=== PATIENT | male | born 1935 | race Caucasian/White ===

== ENCOUNTER 2017-08-28 10:27 | Inpatient (IN) | payer OTHER, MEDICARE ==
[~2017-08-28] VITALS: Ht 180.3 cm; Wt 86.0 kg
[~2017-08-28 10:27] MED LIST: ASPI81 PO; TOPR50TA PO
[2017-08-28 10:29] VITALS: BP 158/80; PULSE 112; RESP 18; TEMP 98.1; O2SAT 99
[2017-08-28] MEDS ORDERED: SODIUM CHLORIDE 0.9% FLUSH 10 ML FLUSH IVF PRN (11:15)
--- NOTE | 2017-08-28 11:15 | PD ---
HPI Chief Complaint: Chest Pain Time Seen by Provider: 10:59 Travel History International Travel<30 days: No Contact w/Intl Traveler<30days: No Traveled to known affect area: No History of Present Illness HPI 82-year-old male presents to the emergency department for evaluation of intermittent shortness of breath, chest tightness has been ongoing for approximately 1.5 months. The patient states that he saw his primary care physician when symptoms started. He had EKG and chest x-ray at that time. He states he had some scarring in the lung base, but no acute abnormality. He then saw Dr. Bright, his silverware etcher, who performed a nuclear stress test and was sounds like an echocardiogram. He states that these tests were normal. He states that yesterday he was polishing his car doing a lot of circular movement with his left arm. He states that the chest pain worsened after doing that. This prompted his visit to the emergency department today. Patient denies any fevers or chills. He currently rates chest tightness 2 out of 10, nonradiating. He states that he has had some paresthesias to the left arm for the past couple of days as well. He believes he slept on his arm wrong. Patient was a previous tobacco smoker, smoked for approximately 10 years approximately 30-40 years ago. He denies any history of asthma, COPD. He states that he did have a cough, but is no longer have cough. He does report traveled to [place] approximately 3 weeks ago. No history DVT or PE. He denies any history of CHF or leg edema. No hemoptysis. Moderate severity. Patient states he took aspirin 162 mg by mouth this morning. PFSH Past Medical History Autoimmune Disease: No Heart Rhythm Problems: No Cancer: Yes (PROSTATE) Cardiac Catheterization: Yes (STENT 6 YEARS AGO) Cardiovascular Problems: Yes (CARDIAC STENT) High Cholesterol: No Congestive Heart Failure: No Diabetes: No Hypertension: No Myocardial Infarction: No Tetanus Vaccination: < 5 Years Influenza Vaccination: Yes Past Surgical History Abdominal Surgery: Yes (RIGHT GROIN HERNIA REPAIR, PROSTATE) Coronary Artery Bypass Graft: No Coronary Stent: Yes (KLANCKE) Other Surgery: Yes Social History Alcohol Use: No Tobacco Use: No Substance Use: No Allergies-Medications (Allergen,Severity, Reaction): Coded Allergies: gluten (Unverified Allergy, Severe, 04/16/17) INTOLERANCE Reported Meds & Prescriptions Reported Meds & Active Scripts Active Reported Aspirin 81 (Aspirin) 81 Mg Tabdr 81 Mg PO DAILY Calcium Ascorbate 500 Mg Tab 500 Mg PO Magnesium Gluconate 27 Mg (500 Mg) Tab 500 Mg PO DAILY Folic Acid 0.8 Mg Tab 800 Mcg PO DAILY Zinc Gluconate 50 Mg Tab 50 Mg PO DAILY Vitamin D3 (Cholecalciferol) 1,000 Unit Tab 1,000 Units PO DAILY Biotin 10 Mg Tab 10 Mg PO DAILY Ferrous Sulfate 325 Mg (65 Mg Iron) Tablet 325 Mg PO DAILY Ocuvite (Multiple Vitamins W/ Minerals) 1 Tab 1 Tab PO DAILY Rosuvastatin (Rosuvastatin Calcium) 5 Mg Tab 5 Mg PO DAILY Losartan (Losartan Potassium) 25 Mg Tab 25 Mg PO DAILY Finasteride 5 Mg Tab 5 Mg PO DAILY Do not crush. Metoprolol Tartrate 25 Mg Tab 25 Mg PO DAILY Review of Systems Except as stated in HPI: all other systems reviewed are Neg Physical Exam Narrative GENERAL: Well-nourished, well-developed elderly male patient, afebrile. SKIN: Focused skin assessment warm/dry. HEAD: Normocephalic. Atraumatic. EYES: No scleral icterus. No injection or drainage. NECK: Supple, trachea midline. No JVD or lymphadenopathy. CARDIOVASCULAR: Regular rate and rhythm without murmurs, gallops, or rubs. Bilateral radial and pedal pulses 2+. RESPIRATORY: Breath sounds equal bilaterally. No accessory muscle use. Lungs sounds are clear to auscultation. GASTROINTESTINAL: Abdomen soft, non-tender, nondistended. MUSCULOSKELETAL: No cyanosis, or edema. BACK: Nontender without obvious deformity. No CVA tenderness. Data Data Last Documented VS Vital Signs Date Time Temp Pulse Resp B/P (MAP) Pulse Ox O2 Delivery O2 Flow Rate FiO2 08/28/17 12:41 65 18 136/65 (88) 96 08/28/17 11:23 Room Air 08/28/17 10:29 98.1 Orders Orders Electrocardiogram (08/28/17 ) Basic Metabolic Panel (Bmp) (08/28/17 11:09) B-Type Natriuretic Peptide (08/28/17 11:09) Ckmb (Isoenzyme) Profile (08/28/17 11:09) Complete Blood Count With Diff (08/28/17 11:09) D-Dimer (08/28/17 11:09) Magnesium (Mg) (08/28/17 11:09) Prothrombin Time / Inr (Pt) (08/28/17 11:09) Act Partial Throm Time (Ptt) (08/28/17 11:09) Troponin I (08/28/17 11:09) Chest, Single Ap (08/28/17 11:09) Ecg Monitoring (08/28/17 11:09) Bilateral Bp Monitoring (08/28/17 11:09) Iv Access Insert/Monitor (08/28/17 11:09) Oximetry (08/28/17 11:09) Oxygen Administration (08/28/17 11:09) Sodium Chloride 0.9% Flush (Ns Flush) (08/28/17 11:15) Ventilation & Perfusion Scan (08/28/17 ) Admit Order (Ed Use Only) (08/28/17 15:19) Labs Laboratory Tests Test 08/28/17 11:14 White Blood Count 13.3 TH/MM3 Red Blood Count 3.74 MIL/MM3 Hemoglobin 10.8 GM/DL Hematocrit 34.0 % Mean Corpuscular Volume 90.8 FL Mean Corpuscular Hemoglobin 28.9 PG Mean Corpuscular Hemoglobin Concent 31.8 % Red Cell Distribution Width 14.2 % Platelet Count 317 TH/MM3 Mean Platelet Volume 8.7 FL Neutrophils (%) (Auto) 81.7 % Lymphocytes (%) (Auto) 9.6 % Monocytes (%) (Auto) 7.0 % Eosinophils (%) (Auto) 1.3 % Basophils (%) (Auto) 0.4 % Neutrophils # (Auto) 10.8 TH/MM3 Lymphocytes # (Auto) 1.3 TH/MM3 Monocytes # (Auto) 0.9 TH/MM3 Eosinophils # (Auto) 0.2 TH/MM3 Basophils # (Auto) 0.0 TH/MM3 CBC Comment DIFF FINAL Differential Comment Prothrombin Time 11.1 SEC Prothromb Time International Ratio 1.1 RATIO Activated Partial Thromboplast Time 21.8 SEC D-Dimer Quantitative (PE/DVT) 4.51 MG/L FEU Blood Urea Nitrogen 33 MG/DL Creatinine 1.71 MG/DL Random Glucose 115 MG/DL Calcium Level 8.4 MG/DL Magnesium Level 1.9 MG/DL Sodium Level 144 MEQ/L Potassium Level 4.2 MEQ/L Chloride Level 117 MEQ/L Carbon Dioxide Level 20.4 MEQ/L Anion Gap 7 MEQ/L Estimat Glomerular Filtration Rate 38 ML/MIN Total Creatine Kinase 79 U/L Troponin I 0.21 NG/ML B-Type Natriuretic Peptide 233 PG/ML MDM Medical Decision Making Medical Screen Exam Complete: Yes Emergency Medical Condition: Yes Medical Record Reviewed: Yes Interpretation(s) chest x-ray - CONCLUSION: No acute disease. VQ - CONCLUSION: Low probability of pulmonary embolism. Differential Diagnosis ACS versus chest wall pain versus pneumonia versus URI versus PE Narrative Course 82-year-old male presents to the emergency department for evaluation of shortness of breath, chest tightness for 1.5 months, worsened after polishing his car yesterday. His symptoms are improved at this time. EKG shows sinus rhythm, heart rate 84, no acute ST changes. CBC, BMP, BNP, CK, troponin, magnesium, PTT, PT/INR, d-dimer ordered and pending. Chest x-ray is ordered and pending. CBC shows leukocytosis 13.3, hemoglobin 10.8, hematocrit 34.0. BMP shows elevated BUN 33, creatinine 1.71. BNP is 233. CK is 79. Troponin is 0.21. Magnesium is 1.9. Coags shows no acute abnormality. D-dimer is 4.51. Chest x- ray shows no acute disease. V/Q is ordered and pending. Patient's silverware etcher, Dr. Bright, is paged. Dr. Bright reviewed records and states that he had a normal nuclear stress test in June and a normal ejection fraction on the echo. However, he states that he will consult on patient. VQ shows low probability of pulmonary embolism. Dr. Shah accepted admission. Diagnosis Primary Impression: Chest pain Qualified Codes: R07.9 - Chest pain, unspecified Additional Impression: Elevated troponin Admitting Information Admitting Physician Requests: Irene Gina Sepulveda AMAN Aug 28, 2017 11:14
[2017-08-28] MEDS ORDERED: ASPI1TAB57 PO (11:18)
[2017-08-28] MEDS ORDERED: FERR325T18 PO (11:18)
[2017-08-28] MEDS ORDERED: MAGN500T5 PO (11:18)
[2017-08-28] MEDS ORDERED: LOSA25TA PO (11:18)
[2017-08-28] MEDS ORDERED: BIOT10TA PO (11:18)
[2017-08-28] MEDS ORDERED: VITA100064 PO (11:18)
[2017-08-28] MEDS ORDERED: FOLI800T PO (11:18)
[2017-08-28] MEDS ORDERED: OCUVTAB PO (11:18)
[2017-08-28] MEDS ORDERED: ZINC50TA2 PO (11:18)
[2017-08-28] MEDS ORDERED: ROSU1TAB4 PO (11:18)
[2017-08-28] MEDS ORDERED: FINA5TAB2 PO (11:18)
[2017-08-28] MEDS ORDERED: METO25TA3 PO (11:18)
[2017-08-28] MEDS ORDERED: CALC500T37 PO (11:18)
[2017-08-28 11:23] VITALS: BP 156/77; PULSE 78; RESP 21; O2SAT 97
[2017-08-28 11:44] LABS: AUTOMATED NEUTROPHIL # 10.8 TH/MM3 (1.8-7.7); BASOPHIL % 0.4 % (0.0-2.0); EOSINOPHIL # 0.2 TH/MM3 (0-0.4); EOSINOPHIL % 1.3 % (0.0-4.0); HEMOGLOBIN 10.8 GM/DL (13.0-17.0); LYMPH % 9.6 % (9.0-44.0); LYMPHOCYTE # 1.3 TH/MM3 (1.0-4.8); MEAN CELL VOLUME 90.8 FL (80.0-100.0); MEAN CORPUSCULAR HEMOGLOBIN 28.9 PG (27.0-34.0); MEAN CORPUSCULAR HGB CONC 31.8 % (32.0-36.0); MEAN PLATELET VOLUME 8.7 FL (7.0-11.0); MONOCYTE # 0.9 TH/MM3 (0-0.9); NEUT % 81.7 % (16.0-70.0); PLATELET COUNT 317 TH/MM3 (150-450); RED BLOOD COUNT 3.74 MIL/MM3 (4.50-5.90); RED CELL DISTRIBUTION WIDTH 14.2 % (11.6-17.2); WHITE BLOOD COUNT 13.3 TH/MM3 (4.0-11.0)
--- NOTE | 2017-08-28 11:46 | RADRPT ---
EXAM DATE/TIME: 08/28/2017 11:14 [facility] COMPARISON: No previous studies available for comparison. INDICATIONS : Short of breath and chest pain on exertion. MEDICAL HISTORY : Right lung scarring. SURGICAL HISTORY : None. ENCOUNTER: Initial ACUITY: 3 days PAIN SCORE: 1/10 LOCATION: Bilateral chest FINDINGS: A single view of the chest demonstrates the lungs to be symmetrically aerated without evidence of mas s, infiltrate or effusion. The cardiomediastinal contours are unremarkable. Osseous structures are intact. CONCLUSION: No acute disease. Rodrigo Quevedo MD on August 28, 2017 at 11:41 Board Certified Radiologist. This report was verified electronically.
[2017-08-28 12:07] LABS: BICARBONATE 20.4 MEQ/L (21.0-32.0); CALCIUM 8.4 MG/DL (8.5-10.1); CREATININE 1.71 MG/DL (0.60-1.30); D-DIMER 4.51 MG/L FEU (0.00-0.50); INTERNATIONAL NORMALIZED RATIO 1.1 RATIO; MAGNESIUM 1.9 MG/DL (1.5-2.5); PROTHROMBIN TIME - PATIENT 11.1 SEC (9.8-11.6)
[2017-08-28 12:13] LABS: TROPONIN I 0.21 NG/ML (0.02-0.05)
[2017-08-28 12:41] VITALS: BP 136/65; PULSE 65; RESP 18; O2SAT 96
--- NOTE | 2017-08-28 13:42 | EKG ---
Date Performed: 08/28/2017 Time Performed: 10:42:09 PTAGE: 82 years EKG: Sinus rhythm WITH SINUS ARRHYTHMIA WITH FIRST DEGREE AV BLOCK ABNORMAL ECG PREVIOUS TRACING : 07/12/2010 06.18 DOCTOR: Jose Martin Moore Interpretating Date/Time 08/28/2017 13:41:24
--- NOTE | 2017-08-28 14:24 | RADRPT ---
EXAM DATE/TIME: 08/28/2017 13:42 [facility] COMPARISON: CHEST SINGLE AP, August 28, 2017, 11:14. INDICATIONS : Shortness of breath for 1 month. DOSE: 8.1 mCi Tc99m MAA IV 1 mCi Tc99m DTPA aerosol MEDICAL HISTORY : Carcinoma, prostate. Hypertension. Cardiovascular disease SURGICAL HISTORY : Coronary artery stent. Inguinal hernia repair. Prostatectomy. ENCOUNTER: Initial ACUITY: 1 month PAIN SCALE: 2/10 LOCATION: Bilateral chest TECHNIQUE: Following five minutes of tidal breathing of DTPA aerosol, planar images of the lungs were performed in eight projections. The patient was then injected with MAA, and eight-view perfusion scan was perf ormed. FINDINGS: There is a homogeneous pattern of aerosol delivery to the periphery of both lungs. No focal ventilat ory defects are seen. The perfusion lung scan demonstrates a homogenous pattern of uptake in both lungs. No segmental or s ubsegmental defects are seen. CONCLUSION: Low probability of pulmonary embolism. Rodrigo Quevedo MD on August 28, 2017 at 14:14 Board Certified Radiologist. This report was verified electronically.
[2017-08-28] MEDS ORDERED: NALOXONE HCL 0.4 MG/ML AMP IV PUSH PRN (16:00)
[2017-08-28] MEDS ORDERED: SODIUM CHLORIDE 0.9% FLUSH 10 ML FLUSH IV FLUSH PRN (16:00)
--- NOTE | 2017-08-28 16:51 | HHI.HP ---
[facility] Service [facility] Primary Care Physician Talita Bonilla MD Admission Diagnosis chest pain, elevated troponin Diagnoses: (1) Coronary artery disease (2) Chest pain (3) Elevated troponin Chief Complaint: Chest pain Travel History International Travel<30 Days: No Contact w/Intl Traveler <30 Da: No Traveled to Known Affected Are: No History of Present Illness The patient is an 82-year-old male who presented to the emergency department for evaluation of chest pain and dyspnea. He states his symptoms initially started about 6 weeks ago. He was seen as an outpatient by his primary care physician. Chest x-ray and EKG were reportedly unremarkable at that time. He was referred to cardiology and further workup including stress test was reportedly negative. He states that he has continued to have intermittent episodes of chest tightness. He had a significant episode this morning, prompting him to present to the emergency department. He describes the discomfort as tightness involving the entire chest. He had numbness of his left arm. He has had associated shortness of breath, but no diaphoresis. Occasionally the chest pain episodes are relieved with Rolaids. No current chest pain. Review of Systems Constitutional: DENIES: Fever, Chills, Night Sweats Eyes: DENIES: Blurred vision, Vision loss Ears, nose, mouth, throat: DENIES: Hearing loss Respiratory: COMPLAINS OF: Shortness of breath, DENIES: Cough, Wheezing, Sputum production Cardiovascular: COMPLAINS OF: Chest pain, DENIES: Palpitations, Dyspnea on Exertion, Lower Extremity Edema Gastrointestinal: DENIES: Abdominal pain, Constipation, Diarrhea, Nausea, Vomiting Genitourinary: DENIES: Urinary frequency, Urinary incontinence, Urgency, Hematuria, Dysuria, Nocturia Musculoskeletal: DENIES: Joint pain, Muscle aches Integumentary: DENIES: Pruritus, Rash Hematologic/lymphatic: DENIES: Bruising Neurologic: DENIES: Headache Past Family Social History Past Medical History Coronary artery disease History of prostate cancer Past Surgical History Cardiac catheterization with stent placement Bilateral inguinal hernia repair Prostate surgery Reported Medications Aspirin 81 (Aspirin) 81 Mg Tabdr 81 Mg PO DAILY Calcium Ascorbate 500 Mg Tab 500 Mg PO Magnesium Gluconate 27 Mg (500 Mg) Tab 500 Mg PO DAILY Folic Acid 0.8 Mg Tab 800 Mcg PO DAILY Zinc Gluconate 50 Mg Tab 50 Mg PO DAILY Vitamin D3 (Cholecalciferol) 1,000 Unit Tab 1,000 Units PO DAILY Biotin 10 Mg Tab 10 Mg PO DAILY Ferrous Sulfate 325 Mg (65 Mg Iron) Tablet 325 Mg PO DAILY Ocuvite (Multiple Vitamins W/ Minerals) 1 Tab 1 Tab PO DAILY Rosuvastatin (Rosuvastatin Calcium) 5 Mg Tab 5 Mg PO DAILY Losartan (Losartan Potassium) 25 Mg Tab 25 Mg PO DAILY Finasteride 5 Mg Tab 5 Mg PO DAILY Do not crush. Metoprolol Tartrate 25 Mg Tab 25 Mg PO DAILY Allergies: Coded Allergies: gluten (Unverified Allergy, Severe, 04/16/17) INTOLERANCE Family History Coronary artery disease Celiac disease Social History Quit smoking 40 years ago. Rare alcohol use. Denies illicit drug use. Physical Exam Vital Signs Vital Signs Date Time Temp Pulse Resp B/P (MAP) Pulse Ox O2 Delivery O2 Flow Rate FiO2 08/28/17 12:41 65 18 136/65 (88) 96 08/28/17 11:23 78 21 156/77 (103) 97 Room Air 08/28/17 10:56 Room Air 08/28/17 10:29 98.1 112 18 158/80 (106) 99 Room Air Physical Exam GENERAL: Elderly male in no acute distress. HEENT: Normocephalic, atraumatic. Pupils equal, round and reactive. Extraocular movements intact. No scleral icterus. No injection or drainage. Oropharynx is clear. Mucous membranes are moist. CARDIOVASCULAR: Regular rate and rhythm without murmurs, gallops, or rubs. RESPIRATORY: Clear to auscultation. No wheezes, rales, or rhonchi. Breathing is non-labored. GASTROINTESTINAL: Abdomen soft, non-tender, nondistended. EXTREMITIES: No lower extremity edema. No calf tenderness. PSYCH: Alert and oriented x 3. Laboratory Laboratory Tests Test 08/28/17 11:14 White Blood Count 13.3 Red Blood Count 3.74 Hemoglobin 10.8 Hematocrit 34.0 Mean Corpuscular Volume 90.8 Mean Corpuscular Hemoglobin 28.9 Mean Corpuscular Hemoglobin Concent 31.8 Red Cell Distribution Width 14.2 Platelet Count 317 Mean Platelet Volume 8.7 Neutrophils (%) (Auto) 81.7 Lymphocytes (%) (Auto) 9.6 Monocytes (%) (Auto) 7.0 Eosinophils (%) (Auto) 1.3 Basophils (%) (Auto) 0.4 Neutrophils # (Auto) 10.8 Lymphocytes # (Auto) 1.3 Monocytes # (Auto) 0.9 Eosinophils # (Auto) 0.2 Basophils # (Auto) 0.0 CBC Comment DIFF FINAL Differential Comment Prothrombin Time 11.1 Prothromb Time International Ratio 1.1 Activated Partial Thromboplast Time 21.8 D-Dimer Quantitative (PE/DVT) 4.51 Blood Urea Nitrogen 33 Creatinine 1.71 Random Glucose 115 Calcium Level 8.4 Magnesium Level 1.9 Sodium Level 144 Potassium Level 4.2 Chloride Level 117 Carbon Dioxide Level 20.4 Anion Gap 7 Estimat Glomerular Filtration Rate 38 Total Creatine Kinase 79 Troponin I 0.21 B-Type Natriuretic Peptide 233 Result Diagram: 08/28/17 1114 08/28/17 1114 Imaging Last Impressions Chest X-Ray 08/28/17 1109 Signed Impressions: Service Date/Time: Monday, August 28, 2017 11:14 - CONCLUSION: No acute disease. Rodrigo Quevedo MD Lung Scan-V Nuclear Medicine 08/28/17 0000 Signed Impressions: Service Date/Time: Monday, August 28, 2017 13:42 - CONCLUSION: Low probability of pulmonary embolism. MD Nick Mirandai VTE Risk Assessment Jerrica VTE Risk Assessment: Mod/High Risk (score >= 2) Caprini Risk Assessment Model Point Value = 1 Point Value = 2 Point Value = 3 Point Value = 5 Age 41-60 Minor surgery BMI > 25 kg/m2 Swollen legs Varicose veins or History of unexplained or recurrent spontaneous Oral contraceptives or hormone replacement Sepsis (< 1 month) Serious lung disease, including pneumonia (< 1 month) Abnormal pulmonary function Acute myocardial infarction Congestive heart failure (< 1 month) History of inflammatory bowel disease Medical patient at bed rest Age 61-74 Arthroscopic surgery Major open surgery (> 45 min) Laparoscopic surgery (> 45 min) Malignancy Confined to bed (> 72 hours) Immobilizing plaster cast Central venous access Age >= 75 History of VTE Family history of VTE Factor V Leiden Prothrombin [id number] Lupus anticoagulant Anticardiolipin antibodies Elevated serum homocysteine Heparin-induced thrombocytopenia Other congenital or acquired thrombophilia Stroke (< 1 month) Elective arthroplasty Hip, pelvis, or leg fracture Acute spinal cord injury (< 1 month) Prophylaxis Regimen Total Risk Factor Score Risk Level Prophylaxis Regimen 0-1 Low Early ambulation 2 Moderate Order ONE of the following: *Sequential Compression Device (SCD) *Heparin 5000 units SQ BID 3-4 Higher Order ONE of the following medications: *Heparin 5000 units SQ TID *Enoxaparin/Lovenox 40 mg SQ daily (WT < 150 kg, CrCl > 30 mL/min) *Enoxaparin/Lovenox 30 mg SQ daily (WT < 150 kg, CrCl > 10-29 mL/min) *Enoxaparin/Lovenox 30 mg SQ BID (WT < 150 kg, CrCl > 30 mL/min) AND/OR *Sequential Compression Device (SCD) 5 or more Highest Order ONE of the following medications: *Heparin 5000 units SQ TID (Preferred with Epidurals) *Enoxaparin/Lovenox 40 mg SQ daily (WT < 150 kg, CrCl > 30 mL/min) *Enoxaparin/Lovenox 30 mg SQ daily (WT < 150 kg, CrCl > 10-29 mL/min) *Enoxaparin/Lovenox 30 mg SQ BID (WT < 150 kg, CrCl > 30 mL/min) AND *Sequential Compression Device (SCD) Assessment and Plan Assessment and Plan 1. Chest pain, elevated troponin, history of coronary artery disease: Uncertain etiology. Patient has had intermittent episodes of chest tightness for the past 6 weeks. Troponin is elevated at 0.21. VQ scan is negative. Consult the patient' s binding cutter. Check serial cardiac enzymes and EKGs. No chest pain at the time of my evaluation. The patient states that at times the chest discomfort resolves when he takes Rolaids. If cardiac workup is negative, consider GI source. Patient's community advocate is Dr. Crane. 2. Acute kidney injury: No recent baseline creatinine available at this time ( most recent available is from 2009). Monitor labs. Avoid nephrotoxic medications. 3. DVT prophylaxis: Heparin. Problem Qualifiers (1) Chest pain: Qualified Codes: R07.9 - Chest pain, unspecified Ryan Savage MD Aug 28, 2017 16:51
[2017-08-28 20:09] LABS: TROPONIN I 0.89 NG/ML (0.02-0.05)
[2017-08-28 20:33] VITALS: PULSE 67
[2017-08-28] MEDS ORDERED: HEPARIN SODIUM - SQ 10,000 UNITS/ML VIAL SQ SCH (21:00)
[2017-08-28 21:28] VITALS: BP 150/67; PULSE 64; RESP 18; TEMP 98.2; O2SAT 97
[2017-08-28 21:39] LABS: HEMATOCRIT 30.1 % (39.0-51.0); HEMOGLOBIN 9.7 GM/DL (13.0-17.0); MEAN CELL VOLUME 90.3 FL (80.0-100.0); MEAN CORPUSCULAR HEMOGLOBIN 29.2 PG (27.0-34.0); MEAN CORPUSCULAR HGB CONC 32.3 % (32.0-36.0); MEAN PLATELET VOLUME 8.7 FL (7.0-11.0); PLATELET COUNT 266 TH/MM3 (150-450); RED BLOOD COUNT 3.33 MIL/MM3 (4.50-5.90); RED CELL DISTRIBUTION WIDTH 14.4 % (11.6-17.2); WHITE BLOOD COUNT 9.9 TH/MM3 (4.0-11.0)
[2017-08-28] MEDS: SODIUM CHLORIDE 0.9% FLUSH 10 ML FLUSH IV FLUSH SCH (21:42)
[2017-08-28] MEDS: FAMOTIDINE 20 MG TAB PO SCH (21:42)
[2017-08-28 21:48] LABS: INTERNATIONAL NORMALIZED RATIO 1.1 RATIO; PROTHROMBIN TIME - PATIENT 11.5 SEC (9.8-11.6)
[2017-08-28] MEDS: HEPARIN-D5W 25,000 U/250 ML 250 ML IV PRN (22:24)
[2017-08-28 23:18] LABS: TROPONIN I 0.86 NG/ML (0.02-0.05)
[2017-08-29] VITALS (18 sets, daily range): BP systolic 117–156; BP diastolic 65–73; PULSE 54–98; RESP 16–20; TEMP 97.8–98.2; O2SAT 93–98
[2017-08-29 03:42] LABS: AUTOMATED NEUTROPHIL # 6.4 TH/MM3 (1.8-7.7); BASOPHIL % 0.4 % (0.0-2.0); EOSINOPHIL # 0.2 TH/MM3 (0-0.4); EOSINOPHIL % 2.5 % (0.0-4.0); HEMATOCRIT 30.5 % (39.0-51.0); HEMOGLOBIN 9.9 GM/DL (13.0-17.0); LYMPH % 19.1 % (9.0-44.0); LYMPHOCYTE # 1.7 TH/MM3 (1.0-4.8); MEAN CORPUSCULAR HEMOGLOBIN 29.3 PG (27.0-34.0); MEAN CORPUSCULAR HGB CONC 32.5 % (32.0-36.0); MEAN PLATELET VOLUME 8.4 FL (7.0-11.0); MONO % 8.7 % (0.0-8.0); MONOCYTE # 0.8 TH/MM3 (0-0.9); NEUT % 69.3 % (16.0-70.0); PLATELET COUNT 267 TH/MM3 (150-450); RED BLOOD COUNT 3.39 MIL/MM3 (4.50-5.90); WHITE BLOOD COUNT 9.2 TH/MM3 (4.0-11.0)
[2017-08-29 04:13] LABS: BICARBONATE 20.6 MEQ/L (21.0-32.0); CALCIUM 8.1 MG/DL (8.5-10.1); CREATININE 1.52 MG/DL (0.60-1.30)
[2017-08-29] MEDS: FINASTERIDE 5 MG TAB PO SCH (08:09)
[2017-08-29] MEDS: CHOLECALCIFEROL (VIT D3) 1000 UNIT TAB PO SCH (08:10)
[2017-08-29] MEDS: FAMOTIDINE 20 MG TAB PO SCH ×2 (08:10→19:57)
[2017-08-29] MEDS: FOLIC ACID 1 MG TAB PO SCH (08:10)
[2017-08-29] MEDS: FERROUS SULFATE 325 MG (65 MG ELEMENTAL IRON) TAB PO SCH (08:10)
[2017-08-29] MEDS: MULTIVITAMIN-OPHTHALMIC 1 TAB PO SCH (08:10)
[2017-08-29] MEDS: SODIUM CHLORIDE 0.9% FLUSH 10 ML FLUSH IV FLUSH SCH ×2 (08:11→19:58)
[2017-08-29] MEDS ORDERED: HEPARIN-NS/PF INJ 1,500 ML ONE (08:47)
[2017-08-29] MEDS ORDERED: VERAPAMIL HCL 5 MG/2 ML VIAL ONE (08:48)
[2017-08-29] MEDS ORDERED: MIDAZOLAM HCL 2 MG/2 ML VIAL ONE (08:48)
[2017-08-29] MEDS ORDERED: HEPARIN SODIUM - IV 10,000 UNITS/10 ML VIAL ONE (08:48)
[2017-08-29] MEDS ORDERED: NITROGLYCERIN INJ 5 ML ONE (08:49)
[2017-08-29] MEDS ORDERED: NON-FORMULARY DRUG (Rosuvastatin 5 MG) PO SCH (09:00)
[2017-08-29] MEDS ORDERED: LOSARTAN 25 MG TAB PO SCH (09:00)
[2017-08-29] MEDS ORDERED: NON-FORMULARY DRUG (Magnesium Gluconate 500 MG) PO SCH (09:00)
[2017-08-29] MEDS ORDERED: ASPIRIN EC 81 MG TABEC PO SCH (09:00)
[2017-08-29] MEDS ORDERED: [UNRECOGNIZED DRUG - OTHER] PO SCH (09:00)
[2017-08-29] MEDS ORDERED: [UNRECOGNIZED DRUG - OTHER] PO SCH (09:00)
[2017-08-29] MEDS ORDERED: NON-FORMULARY DRUG (Zinc Gluconate 50 MG) PO SCH (09:00)
[2017-08-29] MEDS ORDERED: ATORVASTATIN 10 MG TAB PO SCH (09:00)
[2017-08-29] MEDS ORDERED: NON-FORMULARY DRUG (Biotin 10 MG) PO SCH (09:00)
[2017-08-29] MEDS ORDERED: METOPROLOL TARTRATE 25 MG TAB PO SCH ×2 (09:00→14:30)
--- NOTE | 2017-08-29 09:21 | MB ---
cc: GENO MCKEON DO DATE OF CONSULTATION 08/29/2017 REASON FOR CONSULTATION Chest pain, elevated troponin. HISTORY OF PRESENT ILLNESS Min Rucker is a pleasant 82-year-old male who sees my partner, Dr. Diez, in the office and presented to [facility] emergency room on August 28, 2017 due to chest pain and shortness of breath. He states that he has had these symptoms over the past six weeks. He originally saw his outpatient primary care physician and he sent him to Dr. Diez's office where he had an echo and stress test. Echo showed normal systolic function with only mild valvular disease. His stress test showed no ischemic areas. He continued to notice shortness of breath with activity and some chest tightness. Occasionally he would get the chest tightness and he would take Rolaids and this somewhat relieved the episodes. Yesterday he was working on the lawn fertilizing and he started having the chest pain and so he came into the emergency room. In seeing him, he is currently without chest pain or shortness of breath. PAST MEDICAL HISTORY 1. Coronary artery disease 2. History of prostate cancer. PAST SURGICAL HISTORY 1. Cardiac catheterization (July 31, 2004). Mild disease throughout. Proximal LAD 95% status post Cypher stent (3 x 18). 2. Bilateral inguinal hernia repair. 3. Prostate surgery ALLERGIES GLUTIN MEDICATIONS 1. Iron 325 mg daily 2. Crestor 5 mg daily 3. Metoprolol tartrate 25 mg daily 4. Losartan 25 mg daily 5. Aspirin 81 mg daily 6. Magnesium 500 mg daily 7. Zinc 50 mg daily 8. Biotin 10 mg daily 9. Folic acid 800 mcg daily 10. Calcium 500 mg daily 11. Ocuvite one tablet daily 12. Finasteride 5 mg daily FAMILY HISTORY Denies premature coronary artery disease or sudden cardiac within the family. SOCIAL HISTORY The patient previously smoked, but quit 40 years ago. He rarely uses alcohol. Denies illicit drug abuse. REVIEW OF SYSTEMS 14-systems were reviewed including the osteopathic pertinent positives and negatives as above, otherwise negative. PHYSICAL EXAMINATION VITAL SIGNS: Temperature 97.8, heart rate 69, blood pressure 145/70, respirations 20, pulse ox 95% on room air. GENERAL: The patient appears well in no acute distress, alert, awake and oriented times three. HEENT: Extraocular muscles are intact. Mucous membranes moist. NECK: Supple. No JVD at 45 degrees. No carotid bruits heard bilaterally. Carotid upstroke is brisk in nature. HEART: Regular rate and rhythm. Positive first and second heart sounds with no murmurs, gallops or rubs. LUNGS: Clear to auscultation bilaterally. No wheezes, rales or rhonchi. ABDOMEN: Soft, nontender, nondistended. No organomegaly noted. EXTREMITIES: No clubbing, cyanosis or edema. Femoral and distal pulses are intact bilaterally. NEUROLOGIC: No focal deficits. SKIN: Warm, dry and intact. OSTEOPATHIC: No kyphoscoliosis, lordosis or paraspinal tender points. LABORATORY WORK Hemoglobin 9.9, hematocrit 30.5, platelets 267. Potassium 4.9, BUN 35, creatinine 1.52, troponin 0.89, BMP 233. Electrocardiogram (08/29/2017 at 0100), normal sinus rhythm at 61 beats per minute, no acute STT wave changes. IMPRESSIONS 1. NSTEMI 2. History of coronary artery disease. 3. History of prostate cancer. 4. Chronic kidney disease stage III. RECOMMENDATIONS 1. Mr. Rucker presented with chest pain concerning for coronary insufficiency, as well as shortness of breath. He had an elevated troponin and because of this, he will be recommended cardiac catheterization. 2. He recently had an Echo in the office which showed a normal ejection fraction with mild valvular disease. This may need to be repeated due to this most recent event. 3. We will continue him on his aspirin. 4. The risks, benefits and alternatives were explained to him and he consent as such. 5. Further recommendations will be made after coronary visualization. Thank you for allowing me to see Min Rucker. If there are any questions, please do not hesitate to call. Geno Mckeon DO VGP/DJL /8:37 AM /8:47 AM
[2017-08-29] MEDS ORDERED: HEPARIN-NS/PF INJ 1,000 ML ONE (09:53)
--- NOTE | 2017-08-29 11:04 | CATHPROC ---
[employer] HIS Report Study Information Study Number Admission Scheduled Start Study Start [id number] Aug 28 2017 3:20PM 08/29/2017 Aug 29 2017 8:28AM [place] Service Cardiac Catheterization Admit Source Facility Department Emergency department [facility] - Medical Records Specialist Physician and Clinical Staff Initial Bird Garcia Carport Erectorlouis Das RN, Danny Carport ErectorBlair Valerio,SHALINI Recorder Emily Lobo,RT(R) ScrRuby JohnsonRT(R) (BS) Procedures Performed Procedure Location (Site) Vessel Name Coronary Angiograms LCA Left Coronary Coronary Angiograms RCA Right Coronary L Heart Cath Wire insertion Fem Art (right) Femoral Art Wire insertion Radial (right) Radial Art. Equipment Time Supervisor Lump Room Description Size Mfg Part Number Used/Scraped [id number] 10:13 ARGON/MAXXIM BAND BAG W/RUBBERBAND * Used *[id number] 10:13 ARGON/MAXXIM BAND BAG W/RUBBERBAND * Used *[id number] TRANSDUCER, TRUWAVE [id number] 08:30 GOLDBERG PATRICIA * Used W/NATHANAELCOCK *[id number] INTRODUCER SET, 10:35 [employer]. FR 5 [id number] *[id number] Used MICROPUNCTURE, STIFFENED [id number] *[id number] 534-518T *1129582 534-620T *[id number] 534-617T *[id number] 534-521T *[id number] WIRE, HYDROSTEER 150CM [id number] 09:13 DAIG/ST. MALI MEDICAL 150CM Used ANGLED GLIDE *[id number] MEDICAL CONCEPT DRAPE, RADIAL FEMORAL FULL 10:08 * [id number] *[id number] Used DEVELOPMENT BODY [id number] 08:30 Offees PACK, CCL CUSTOM * Used *[id number] 08:30 Offees SUPPORT, ARTERIAL ADULT 50823 *2367530 Used [id number] 09:24 MEDTRONIC JL 4.0 DXTERITY CATHETER FR 5 Used *[id number] BAND, RADIAL COMPRESSION TR [id number] 10:35 [employer]Giga MEDICAL 24CM Used SHORT 24 *[id number] 08:30 Altheos WIRE, EXCHANGE 260CM 3MMJ 260CM Used *[id number] 08:30 NAMIC MANIFOLD, 4 PORT * Used *[id number] 10:06 NAMIC MANIFOLD, 4 PORT * Used *[id number] 10:14 NYCOMED OMNIPAQUE, 350 MG, 150ML 150ML [id number] Used 08:30 NYCOMED OMNIPAQUE, 350 MG, 150ML 150ML [id number] Used [id number] 08:30 HELLER MEDICAL BLANKET,WARM AIR CCL * Used *[id number] 10:07 HELLER MEDICAL BLANKET,WARM AIR CCL * Used *[id number] 10:35 TERUMO MEDICAL SHEATH, FR6 TERUMO (10CM) FR 6 Used *7592014 SHEATH, FR6 TRANSRADIAL RM*[id number] 08:30 TERUMO MEDICAL FR 6 Used SLENDER 10CM *[id number] Equipment Model, Serial, Lot Number and Expiration Data Description Model Number Serial Number Lot Number Expiration Date INTRODUCER SET, [id number] 07-08-2020 MICROPUNCTURE, STIFFENED JL 4.0 DXTERITY CATHETER [id number] 04-03-2020 WIRE, HYDROSTEER 150CM [id number] 05-02-2020 ANGLED GLIDE History: Current Medications Medication Dosage/Unit Route Frequency Last Date/Time Taken LOPRESSOR ASA COZAAR Statins (any) History: Allergies Allergy Reaction gluten History: Risk Factors Family History of Hypertension Dyslipidemia Previous MA Previous Heart Failure Premature CAD Yes Yes Yes No No Prior Valve Prior PCI Prior PCIDate Prior CABG Surgery No Yes 09/02/2003 No Cerebrovascular Peripheral Artery Chronic Lung On Dialysis Diabetes Disease Disease Disease No No No No No History: Symptoms/Diagnosis Selection Items Chest pain SOB History: Stress Tests Stress or Imaging Studies Performed Yes Standard Exercise Stress Test No Stress Echo No Stress Test SPECT Stress Test SPECT Result Stress Test SPECT Ischemia Risk/Extent Yes Positive Low Stress Test CMR No Cardiac CTA Coronary Calcium Score No No History: Other Disease Selection Items CAD History: Other Current Smoker Method Quit Packs a Day Years Used Pack Years No Cigarettes 30 Years Ago 1 20 20 Labs Hgb (g/dl) Hct (%) WBC (l/cumm) Platelets (thousands) 11.60-17.00 35.00-51.00 4.00-11.00 150.00-450.00 9.9 30.5 9.2 267 Glucose (mg/dl) BUN (mg/dl) Creatinine (mg/dl) BUN:Creatinine (1:x) 74.00-106.00 7.00-18.00 0.50-1.30 10.00-20.00 88 35 1.5 23.3 Na (meq/l) K (meq/l) 136.00-145.00 3.50-5.10 142 4.9 INR (PTT:PT) 0.90-1.10 1.1 Troponin I (ng/ml) CPK (u/l) 0.02-0.05 26.00-308.00 0.86 79 Medication Medication Total Dose (Bolus/Oral) Medication Total Dosage/Unit 1% XYLOCAINE 40 mL FENTANYL 75 mcg RADIAL COCKTAIL 5 mL (Bolus) VERSED 0.5 mg Medications (Bolus/Oral) Medication Time Given Dosage/Unit Administered By Reason FENTANYL 08/29/2017 9:06:40 AM 25 mcg Danny Das RN 25 mcg FENTANYL given in lab by Danny Das RN in Right Forearm via Peripheral IV. Ordered by Bird Castillo VERSED 08/29/2017 9:07:21 AM 0.5 mg Danny Das RN 0.5 mg VERSED given in lab by Danny Das RN in Right Forearm via Peripheral IV. Ordered by Bird Noyola 1% XYLOCAINE 08/29/2017 9:08:29 AM 20 mL Bird Noyola 20 mL 1% XYLOCAINE given in lab by Bird Noyola in Right Radial via Subcutaneous. RADIAL COCKTAIL 08/29/2017 9:09:38 AM 5 mL (Bolus) Bird Noyola 5 mL (Bolus) RADIAL COCKTAIL given in lab by Bird Noyola in Right Radial via Radial. Using [S olution Name]. Reason: Ntg 200mcg Verapamil 2.5mg Heparin 3500U. 08/29/2017 10:35:40 FENTANYL 50 mcg Danny Das RN AM 50 mcg FENTANYL given in lab by Danny Das RN in Right Forearm via Peripheral IV. Ordered by Bird Castillo 08/29/2017 10:38:04 1% XYLOCAINE 20 mL Bird Noyola AM 20 mL 1% XYLOCAINE given in lab by Bird Noyola in Right Groin via Subcutaneous. Medication (Drip) Medication Time Given Dosage/Unit Concentration/Unit Diluent (ml) Solution IV Solutions 08/29/2017 8:48:10 AM 50 mL (IV) NaCl .9 IV Solutions given in lab by Burfield, Blair, RN in Right Forearm via Peripheral IV. Pump/Drip Flow usi ng NaCl .9. Initial Case Assessment Cardiovascular HR Rhythm NIBP Chest Pain 63 SR 162/81 0 Edema Present Skin color Skin None Normal Warm Dry Circulatory - Right Pulses Dorsalis Pedis Femoral Radial 1 2 2 Scale (0,1,2,3,4,d) Scale (0,1,2,3,4,d) Neurological State Oriented to time-place- Alert Moves all extremities person Respiration - General Respiration Rate SpO2 (%) (B/min) 11 97 Chronological Log Time Study Chronological Log 8:30:00 Heparin off 8:38:21 Patient arrived via Bed. 8:47:49 Patient Name, D.O.B, / Armband Verified By R.N. 8:47:50 Consent signed by the physician and the patient and verified by the Medical Records Specialist staff. 8:47:51 Pre-op and post- op instructions given; patient acknowledges understanding of instructions . 8:47:52 Verbal Stimulation=2 Physical Stimulation=2 Airway=2 Respiration=2 TOTAL=8. (0=absent, 1=l imited, 2=present) 8:47:54 Presedation assessment performed by Medical Records Specialist RN. 8:47:57 Allens test performed on the right radial and ulnar artery. 8:48:04 Patient has been NPO for More than 6Hrs. 8:48:05 Skin Breakdown-none per pt 8:48:06 Patient Warmer Placed on the Table. 8:48:06 Tiffanie Prominences Protected 8:48:08 A # 20 IV was noted in the Forearm (right). Grade = 0 8:48:10 IV Solutions given in lab by Blair Hidalgo RN in Right Forearm via Peripheral IV. Pump/Dr ip Flow using NaCl .9. 8:48:12 History and physical on the chart or being dictated. Assessment: Initial Case, HR=63 BPM, Rhythm=SR, IBUQ=718/81 mmhg, Chest Pain=0, Edema=None, [place] r=Normal, Skin = Warm, Dry 8:48:13 Right Pulses: Lázaro Ped=1, Femoral=2, Radial=2 Neurological: State=Alert, Ox3, VICK Respiration: Resp=11 B/min, SpO2=97 % Vitals capture started with the following parameters, Patient=Adult, Interval=5 min, Initial Pre myvcx=320 mmHg, 8:48:16 Deflation Rate=5 mmHg, Cuff placed on Left Arm 8:49:05 HR=63 bpm, MSSB=888/81 mmhg, SpO2=97 %, Resp=11 B/min 8:49:29 Reference ECG taken 8:52:31 Right Radial and right groin prepped with 2% chlorhexidine, and draped after a 3 min. waitin g time. 8:54:02 HR=62 bpm, FKIA=895/82 mmhg, SpO2=96.0 %, Resp=14 B/min 8:57:53 MD paged 8:59:03 HR=63 bpm, CYTY=559/78 mmhg, SpO2=97.0 %, Resp=11 B/min 9:00:22 MD arrived. 9:01:33 Pressure channel 1 zeroed. 9:04:00 HR=62 bpm, EKZY=692/80 mmhg, SpO2=97.0 %, Resp=18 B/min Time Out. Correct patient, correct procedure, correct physician, power injector loaded, or not l oaded with contrast with 9:06:36 surgical team present. Time Out Concurred by MD and individual staff in procedure. 9:06:40 25 mcg FENTANYL given in lab by Danny Das RN in Right Forearm via Peripheral IV. Ordered by Bird Noyola 9:07:21 0.5 mg VERSED given in lab by Danny Das RN in Right Forearm via Peripheral IV. Ordered by Bird Noyola 9:08:22 Case Start 9:08:29 20 mL 1% XYLOCAINE given in lab by Bird Noyola in Right Radial via Subcutaneous. 9:09:01 HR=63 bpm, PRSC=816/78 mmhg, SpO2=95.0 %, Resp=13 B/min 9:09:12 Access site was Right Radial Artery. A SHEATH, FR6 TRANSRADIAL SLENDER 10CM FR 6 was advanced into the Radial (right) using the Evita rodríguez 9:09:24 technique. 5 mL (Bolus) RADIAL COCKTAIL given in lab by Bird Noyola in Right Radial via Radial. Usi ng [Solution Name]. 9:09:38 Reason: Ntg 200mcg Verapamil 2.5mg Heparin 3500U. A JR 4.0 INFINITI CATHETER FR 5 was advanced over a wire. OMNIPAQUE, 350 MG, 150ML 150ML was use d for 9:10:34 injections. 9:11:02 J Wire removed 9:11:49 Right forearm injection of omnipaque 9:13:07 A WIRE, HYDROSTEER 150CM ANGLED GLIDE 150CM was inserted via Radial (right). 9:14:02 HR=64 bpm, GKNI=851/68 mmhg, SpO2=94.0 %, Resp=18 B/min 9:15:35 [place] Wire removed 9:16:07 A WIRE, EXCHANGE 260CM 3MMJ 260CM was inserted via Radial (right). 9:16:33 Wire removed Recorded Pressure: LV, HR=61, Condition=Condition 1 9:17:21 (Left Ventricle) LV 125/8/13 Recorded Pressure: LV, Ao, HR=60, Condition=Condition 1 9:17:38 (Left Ventricle) LV 124/7/14, (Aorta) Ao 123/59/84 9:18:50 The RCA was injected and visualized at various angles. OMNIPAQUE, 350 MG, 150ML 150ML used. 9:18:57 HR=58 bpm, FQRX=402/65 mmhg, SpO2=93.0 %, Resp=16 B/min After removing the current catheter a JL 3.5 INFINITI CATHETER FR 5 was advanced over a WIRE, EX CHANGE 260CM 9:19:59 3MMJ 260CM. After removing the current catheter a JL 4.0 DXTERITY CATHETER FR 5 was advanced over a WIRE, EX CHANGE 260CM 9:23:24 3MMJ 260CM. 9:23:58 HR=59 bpm, TPBG=531/67 mmhg, SpO2=94 %, Resp=20 B/min 9:25:36 Wire removed 9:28:57 HR=58 bpm, EWTM=241/65 mmhg, SpO2=93.0 %, Resp=14 B/min 9:30:33 X-ray went down, rebooting system. 9:33:58 HR=56 bpm, KRXN=830/68 mmhg, SpO2=98.0 %, Resp=9 B/min 9:38:57 HR=55 bpm, VFFY=165/67 mmhg, SpO2=98.0 %, Resp=16 B/min 9:43:36 Vitals capture stopped. 9:50:02 Covered sheath in right radial with sterile dressing, moved pt to bed and to lab 4. Vitals capture started with the following parameters, Patient=Adult, Interval=5 min, Initial Pr mwnfty=307 mmHg, 9:54:57 Deflation Rate=5 mmHg, Cuff placed on Left Arm 9:55:42 HR=54 bpm, QBTD=798/72 mmhg, SpO2=99.0 %, Resp=9 B/min 9:56:10 Reference ECG taken 9:59:45 Right Radial with sheath in place prepped with 2% chlorhexidine, and draped after a 3 min. w aiting time. 10:00:37 HR=53 bpm, VAHT=047/68 mmhg, SpO2=99.0 %, Resp=7 B/min 10:05:36 HR=51 bpm, XQWK=613/69 mmhg, SpO2=97.0 %, Resp=10 B/min 10:07:09 MD paged 10:07:13 Pressure channel 1 zeroed. 10:10:39 HR=52 bpm, BTYD=450/66 mmhg, SpO2=95.0 %, Resp=10 B/min 10:14:07 MD arrived. 10:15:36 HR=55 bpm, ZWNS=494/67 mmhg, SpO2=95.0 %, Resp=16 B/min Second Time Out. Correct patient, correct procedure, correct physician, power injector loaded, or not loaded with 10:16:32 contrast with surgical team present. Time Out Concurred by MD and individual staff in procedure . A JL 4.5 INFINITI CATHETER FR 6 was advanced over a wire. OMNIPAQUE, 350 MG, 150ML 150ML was us ed for 10:18:00 injections. 10:20:33 HR=55 bpm, IICO=540/66 mmhg, SpO2=95 %, Resp=17 B/min After removing the current catheter a JL 4.0 INFINITI CATHETER FR 6 was advanced over a WIRE, E XCHANGE 260CM 10:25:33 3MMJ 260CM. 10:25:36 HR=53 bpm, ZIDS=407/65 mmhg, SpO2=96.0 %, Resp=20 B/min After removing the current catheter a AL 1 INFINITI CATHETER FR 5 was advanced over a WIRE, EXC HANGE 260CM 10:30:34 3MMJ 260CM. 10:31:18 HR=54 bpm, WJDR=173/64 mmhg, SpO2=99.0 %, Resp=20 B/min 10:35:16 Catheter was removed 10:35:20 Radial access aborted. Unable to get to LCA. 10:35:40 50 mcg FENTANYL given in lab by Danny Das RN in Right Forearm via Peripheral IV. Ordered by Bird Noyola. 10:36:19 HR=55 bpm, RTSK=120/70 mmhg, SpO2=98.0 %, Resp=11 B/min 10:38:04 20 mL 1% XYLOCAINE given in lab by Bird Noyola in Right Groin via Subcutaneous. 10:38:50 Access site was Right Femoral Artery with micropuncture. 10:38:54 A SHEATH, FR6 TERUMO (10CM) FR 6 was advanced into the Fem Art (right) using the Percutaneo us technique. 10:40:39 HR=52 bpm, GJLI=179/68 mmhg, SpO2=99.0 %, Resp=10 B/min 10:40:44 An injection in the Fem Art (right) was made through the SHEATH, FR6 TERUMO (10CM) FR 6. A JL 4.0 INFINITI CATHETER FR 6 was advanced over a wire. OMNIPAQUE, 350 MG, 150ML 150ML was us ed for 10:41:28 injections. 10:43:43 The LCA was injected and visualized at various angles. OMNIPAQUE, 350 MG, 150ML 150ML used . 10:45:41 HR=53 bpm, SKRG=936/71 mmhg, SpO2=98.0 %, Resp=16 B/min 10:45:48 A wire was inserted via Fem Art (right). 10:45:54 Catheter was removed 10:46:30 Activated Clotting Time Drawn 10:47:00 Case End 10:48:14 Sheath(s) left in place, will be removed in Holding Area 10:48:30 Sterile dressing applied to site Radial Compression Device Used. 9 mLs of air placed in BAND, RADIAL COMPRESSION TR SHORT 24 24 CM. Affected 10:48:35 hand 100 % O2 saturation. 10:48:43 Bedside Report will be given. 10:49:00 A Left Heart Cath was performed. 10:50:44 HR=53 bpm, MOAX=331/75 mmhg, SpO2=98.0 %, Resp=10 B/min 10:51:40 ACT (Normal Range 90-180) = 169 10:55:00 Patient moved to stretcher 10:55:41 HR=55 bpm, KSKR=618/77 mmhg, VkT3=249.0 %, Resp=13 B/min 10:57:59 Vitals capture stopped. End Study - Contrast Media Used In Study Contrast Total Opened (mL) Total Used (mL) Total Wasted (mL) Omnipaque 55 55 0 End Study - Maximum Contrast Load Max Contrast Load (mL) 289.4 End Study - Radiation Exposure Fluoro Time (minutes) 16.0 End Study - Patient Disposition Complications Transferred To Interventional Outcome No Telemetry Bed No attempt made
[2017-08-29] MEDS ORDERED: ONDANSETRON HCL 4 MG/2 ML VIAL IV PUSH PRN (11:15)
[2017-08-29] MEDS ORDERED: SODIUM CHLOR 0.9% 250 ML INJ 250 ML IV PRN (11:15)
[2017-08-29] MEDS ORDERED: ATROPINE SULFATE 1 MG/ML VIAL IV PUSH PRN (11:15)
--- NOTE | 2017-08-29 11:47 | MA ---
cc: GENO MCKEON DO DATE 08/29/2017 PROCEDURE Left heart catheterization, coronary angiogram, moderate sedation 100 minutes. PREPROCEDURE DIAGNOSIS NSTEMI, chest pain. POSTPROCEDURE DIAGNOSIS Multivessel disease for CABG. MEDICATIONS 1. Versed 0.5 mg 2. Fentanyl 75 mcg 3. Nitroglycerin 200 mcg 4. Verapamil 2.5 mg 5. Heparin 3500 units FLUOROSCOPY 16 minutes CONTRAST 55 cc. ANESTHESIA Moderate sedation 100 minutes ESTIMATED BLOOD LOSS 10 cc PROCEDURAL SUMMARY Min Rucker is a pleasant 82-year-old male who presented to [facility] emergency room due to chest pain. He was found to have an elevated troponin and because of this was recommended cardiac catheterization. The risks, benefits and alternatives were explained to him and he consented as such. He was brought to lab and prepped in the usual sterile fashion. The right radial artery was accessed using a modified Seldinger technique and placement of a 5/6 [place] sheath. This was easily aspirated and flushed. A JR-4 was advanced over a J-wire to the midforearm where there was some resistance. Angiogram was done and showed mild tortuosity and so this was managed with a Glidewire. JR-4 was advanced into the left ventricle for measurement of left ventricular pressure. This was pulled back across the aortic valve showing no significant gradient of aortic stenosis. JR-4 was used for selective angiography of the right coronary artery system. The JR-4 was then removed and exchanged for a JL-3.5 and eventually a JL-4 which I was unable to engage the left main. At this time, the system went down and was rebooted but not working, so the catheter was removed, Tegaderm was placed over the radial arteriotomy site and the patient was moved from the lab to another and reprepped sterilely. A JL-4.5 and then an AL-1 were attempted to engage the left main but unable to. At this time, I felt that it was reasonable to abort the radial attempt and go to the groin. The right femoral artery was accessed using a modified Seldinger technique and placement of a 6-Mohawk sheath. This was easily aspirated and flushed. A JL-4 was then advanced over a J-wire to the ascending aorta and engaged in the left main. This was used for selective angiography of the left coronary artery system. JL-4 was then removed over a J-wire. The sheath was sutured in and pressure held for hemostasis. A radial band was placed over the arteriotomy site for hemostasis. 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 FINDINGS Left main normal sized vessel with adequate reflux and no significant disease. It trifurcates into an LAD, ramus and circumflex. LAD is a normal-sized vessel with a 90% stenosis in the ostial portion. It has mild luminal irregularities throughout the proximal portion with some in-stent restenosis of 40%. The mid-LAD after the takeoff of the major diagonal has a 70% lesion. But distally has good runoff. Overall, the diagonal has no significant disease. The left circumflex is a normal sized vessel with a long tubular 95% stenosis in the proximal portion. It gives off three to four obtuse marginales as well as a possible codominant posterior descending artery. Ramus has 50% ostial, but overall a small vessel at around 1 mm and covers a small territory of myocardium. RCA. A normal-size vessel with mild luminal irregularities throughout the midportion. Distally, it is a codominant vessel with 50% stenosis of the ostial portion of the PDA. The PLV has an 80% stenosis, but overall is a small vessel at about 1-1/2 mm covering a very small territory. LVEDP 14. IMPRESSIONS 1. Multivessel coronary artery disease for possible CABG. 2. NSTEMI 3. Chest pain concerning for coronary insufficiency. RECOMMENDATIONS 1. Mr. Rucker presented with an NSTEMI and was found to have multivessel disease and because of this will be recommended coronary artery bypass grafting. 2. Case was discussed with CT surgery and they will see him in consultation. 3. We will plan to recheck an echocardiogram as this is a new ischemic event. 4. Because of the NSTEMI, he will be placed back on a heparin drip 8 hours after his sheath is pulled as long as his groin site looks okay. 5. We will hold his Losartan due to his chronic kidney disease but in anticipation of possible CT surgery. 6. Further recommendations will be made based on the hospital course. Thank you for allowing me to see Min Rucker. If there are any questions, please do not hesitate to call. Geno Mckeon DO VGP/DJL /10:56 AM /11:10 AM
[2017-08-29] MEDS ORDERED: IOHEXOL 350 MG/ML 100 ML BTL (for Cath Lab) OTHER ONE (12:37)
[2017-08-29] MEDS ORDERED: ACETAMINOPHEN 325 MG TAB PO ONE (12:45)
--- NOTE | 2017-08-29 13:38 | HHI.PR ---
Subjective Remarks Patient had positive findings for OR on workup overnight. He was taken for her This morning. Heart Shows a disease that cannot be stented. Plan is for open heart surgery with bypass. Objective Vital Signs Date Time Temp Pulse Resp B/P (MAP) Pulse Ox O2 Delivery O2 Flow Rate FiO2 08/29/17 12:38 98.2 60 18 143/73 (96) 96 08/29/17 11:05 100 Room Air 08/29/17 08:00 97.8 69 20 145/70 (95) 95 08/29/17 06:55 54 08/29/17 04:33 97.8 67 16 142/65 (90) 98 08/29/17 03:15 64 08/29/17 01:31 98.0 61 16 156/69 (98) 97 08/29/17 00:02 67 08/28/17 21:28 98.2 64 18 150/67 (94) 97 08/28/17 20:33 67 08/28/17 17:16 Result Diagram: 08/29/17 0330 08/29/17 0330 Objective Remarks GENERAL: NAD, A&Ox3 HEAD: Normocephalic. NECK: Supple, trachea midline. No lymphadenopathy. EYES: No scleral icterus. No injection or drainage. CARDIOVASCULAR: Regular rate and rhythm without murmurs, gallops, or rubs. RESPIRATORY: Breath sounds equal bilaterally. No accessory muscle use. GASTROINTESTINAL: Abdomen soft, non-tender, nondistended. MUSCULOSKELETAL: No cyanosis, or edema. Right wrist splint in place (post catheterization), right groin dressing present post catheterization. SKIN: Warm and dry. NEURO: No focal neurological deficitis. A/P Problem List: (1) Myocardial infarction ICD Code: I21.9 - Acute myocardial infarction, unspecified (2) Coronary artery disease ICD Code: I25.10 - Atherosclerotic heart disease of [place] coronary artery without angina pectoris (3) Elevated troponin ICD Code: R74.8 - Abnormal levels of other serum enzymes Status: Acute (4) Chest pain ICD Code: R07.9 - Chest pain, unspecified Status: Acute Assessment and Plan Assessment and plan 82-year-old male admitted secondary to chest pain with elevated troponins. Findings overnight consistent with myocardial infarction. Unable to treat this with catheterization. Plan for open heart surgery with bypass. 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
[2017-08-29 14:30] LABS: ALBUMIN 3.2 GM/DL (3.4-5.0); ALT (GPT) 27 U/L (12-78); AST (GOT) 19 U/L (15-37); BICARBONATE 20.1 MEQ/L (21.0-32.0); BLOOD UREA NITROGEN 32 MG/DL (7-18); CALCIUM 8.2 MG/DL (8.5-10.1); CHLORIDE 111 MEQ/L (98-107); CREATININE 1.53 MG/DL (0.60-1.30); GLOMERULAR FILTRATION RATE 44 ML/MIN (>89); GLUCOSE,RANDOM 103 MG/DL (74-106); SODIUM (NA) 141 MEQ/L (136-145)
[2017-08-29] MEDS ORDERED: PAPAVERINE INJ 60 MG, NITROGLYCERIN INJ 100 MCG, DILTIAZEM INJ 100 MG in SODIUM CHLORID... IRRIGATION SCH (14:30)
[2017-08-29] MEDS ORDERED: CHLORHEXIDINE GLUCONATE 4% SOLN 120 ML BTL TOPICAL SCH (14:30)
[2017-08-29] MEDS ORDERED: INSULIN REGULAR (IV INFUSION) 100 UNITS in SODIUM CHLORIDE 0.9% INJ 99 ML IV PRN (14:30)
[2017-08-29] MEDS ORDERED: CEFAZOLIN INJ 500 MG in SODIUM CHLORIDE 0.9% IRR BTL 500 ML IRRIGATION SCH (14:30)
[2017-08-29] MEDS ORDERED: SODIUM CHLORIDE 0.9% FLUSH 10 ML FLUSH IV FLUSH PRN (14:30)
[2017-08-29] MEDS ORDERED: ceFAZolin 2 GM PREMIX 50 ML IV SCH (14:30)
[2017-08-29] MEDS ORDERED: DEXTROSE 50% IN WATER 50 ML VIAL(D50) IV PUSH PRN (14:30)
[2017-08-29 14:32] LABS: ALKALINE PHOSPHATASE 94 U/L (45-117); TOTAL BILIRUBIN ADULT 0.4 MG/DL (0.2-1.0)
--- NOTE | 2017-08-29 14:36 | PD.CAR.PN ---
CVT Progress Note Subjective/Hospital Course: pt seen and eval / consultation to follow sts discussed with pt RISK SCORES About the STS Risk Calculator Procedure: CAB Only Risk of Mortality: 2.272% Morbidity or Mortality: 17.299% Long Length of Stay: 6.573% Short Length of Stay: 35.579% Permanent Stroke: 1.528% Prolonged Ventilation: 9.002% DSW Infection: 0.354% Renal Failure: 7.801% Reoperation: 6.276% Objective: Vital Signs Date Time Temp Pulse Resp B/P (MAP) Pulse Ox O2 Delivery O2 Flow Rate FiO2 08/29/17 13:01 66 08/29/17 12:38 98.2 60 18 143/73 (96) 96 08/29/17 11:05 100 Room Air 08/29/17 08:00 97.8 69 20 145/70 (95) 95 08/29/17 06:55 54 08/29/17 04:33 97.8 67 16 142/65 (90) 98 08/29/17 03:15 64 08/29/17 01:31 98.0 61 16 156/69 (98) 97 08/29/17 00:02 67 08/28/17 21:28 98.2 64 18 150/67 (94) 97 08/28/17 20:33 67 08/28/17 17:16 Labs: Laboratory Tests Test 08/29/17 03:30 08/29/17 14:00 White Blood Count 9.2 TH/MM3 (4.0-11.0) Red Blood Count 3.39 MIL/MM3 (4.50-5.90) Hemoglobin 9.9 GM/DL (13.0-17.0) Hematocrit 30.5 % (39.0-51.0) Mean Corpuscular Volume 90.0 FL (80.0-100.0) Mean Corpuscular Hemoglobin 29.3 PG (27.0-34.0) Mean Corpuscular Hemoglobin Concent 32.5 % (32.0-36.0) Red Cell Distribution Width 14.0 % (11.6-17.2) Platelet Count 267 TH/MM3 (150-450) Mean Platelet Volume 8.4 FL (7.0-11.0) Neutrophils (%) (Auto) 69.3 % (16.0-70.0) Lymphocytes (%) (Auto) 19.1 % (9.0-44.0) Monocytes (%) (Auto) 8.7 % (0.0-8.0) Eosinophils (%) (Auto) 2.5 % (0.0-4.0) Basophils (%) (Auto) 0.4 % (0.0-2.0) Neutrophils # (Auto) 6.4 TH/MM3 (1.8-7.7) Lymphocytes # (Auto) 1.7 TH/MM3 (1.0-4.8) Monocytes # (Auto) 0.8 TH/MM3 (0-0.9) Eosinophils # (Auto) 0.2 TH/MM3 (0-0.4) Basophils # (Auto) 0.0 TH/MM3 (0-0.2) CBC Comment DIFF FINAL Differential Comment Activated Partial Thromboplast Time 29.1 SEC (24.3-30.1) Blood Urea Nitrogen 35 MG/DL (7-18) 32 MG/DL (7-18) Creatinine 1.52 MG/DL (0.60-1.30) 1.53 MG/DL (0.60-1.30) Random Glucose 88 MG/DL (74-106) 103 MG/DL (74-106) Calcium Level 8.1 MG/DL (8.5-10.1) 8.2 MG/DL (8.5-10.1) Sodium Level 142 MEQ/L (136-145) 141 MEQ/L (136-145) Potassium Level 4.9 MEQ/L (3.5-5.1) 5.2 MEQ/L (3.5-5.1) Chloride Level 115 MEQ/L (98-107) 111 MEQ/L (98-107) Carbon Dioxide Level 20.6 MEQ/L (21.0-32.0) 20.1 MEQ/L (21.0-32.0) Anion Gap 6 MEQ/L (5-15) 10 MEQ/L (5-15) Estimat Glomerular Filtration Rate 44 ML/MIN (>89) 44 ML/MIN (>89) Total Protein 7.0 GM/DL (6.4-8.2) Albumin 3.2 GM/DL (3.4-5.0) Alkaline Phosphatase 94 U/L (45-117) Aspartate Amino Transf (AST/SGOT) 19 U/L (15-37) Alanine Aminotransferase (ALT/SGPT) 27 U/L (12-78) Total Bilirubin 0.4 MG/DL (0.2-1.0) Result Diagram: 08/29/17 0330 08/29/17 1400 Flor Botello Aug 29, 2017 14:36
[2017-08-29 16:34] LABS: HEMOGLOBIN A1C 5.6 % (4.3-6.0)
--- NOTE | 2017-08-29 16:41 | RADRPT ---
EXAM DATE/TIME: 08/29/2017 15:26 [facility] COMPARISON: No previous studies available for comparison. INDICATIONS : Preop cardiac surgery. MEDICAL HISTORY : Prostate cancer. SURGICAL HISTORY : Cardiac stent. Right groin hernia repair. Cardiac catheterization. Prostate surgery. ENCOUNTER: Initial ACUITY: 1 day PAIN SCORE: 0/10 LOCATION: Bilateral legs. TECHNIQUE: Venous ultrasound of the left and right leg was performed from the inguinal ligament to the proximal calf. Real-time, color Doppler and spectral tracing, compression and augmentation techniques were us ed. FINDINGS: RIGHT LEG: There is normal compressibility of the deep venous system from the inguinal region to the proximal ca lf. No echogenic clot is seen in the lumen of the common femoral, femoral, popliteal, and posterior tibial veins. There is a normal response of the venous system to proximal and distal augmentation an d respiration. LEFT LEG: There is normal compressibility of the deep venous system from the inguinal region to the proximal ca lf. No echogenic clot is seen in the lumen of the common femoral, femoral, popliteal, and posterior tibial veins. There is a normal response of the venous system to proximal and distal augmentation an d respiration. CONCLUSION: No evidence of DVT. Michael Lopez MD on August 29, 2017 at 16:38 Board Certified Radiologist. This report was verified electronically.
--- NOTE | 2017-08-29 16:46 | RADRPT ---
EXAM DATE/TIME: 08/29/2017 16:02 [facility] COMPARISON: No previous studies available for comparison. INDICATIONS : Preop cardiac surgery. MEDICAL HISTORY : Prostate cancer. SURGICAL HISTORY : Cardiac stent. Right groin hernia repair. Cardiac catheterization. Prostate surgery. ENCOUNTER: Initial ACUITY: 1 day PAIN SCORE: 0/10 LOCATION: Bilateral neck PEAK SYSTOLIC VELOCITIES (cm/sec): ICA/CCA RATIO: Right: 1.7 Left: 0.7 ICA: Right: 136 Left: 83 CCA: Right: 78 Left: 111 ECA: Right: 184 Left: 89 VERTEBRAL: Right: 66 antegrade Left: 87 antegrade Elevated flow velocities and ICA/CCA ratios have been found to correlate with increased degrees of vessel stenosis, calculated as percentage of diameter relative to a normal segment of distal ICA/CCA FINDINGS: RIGHT CAROTID: There is mild atherosclerotic plaquing at the bifurcation. No significant stenosis is visualized. The re is an elevated velocity within the right internal carotid artery.. LEFT CAROTID: No significant stenosis is visualized. The waveforms are within normal limits. VERTEBRAL ARTERIES: Antegrade flow is seen in both vertebral arteries. MISCELLANEOUS: None. CONCLUSION: 1. Mild atherosclerotic plaquing at the right carotid bifurcation. There is some mild elevated veloci ty in the right internal carotid artery. However, no focal high-grade or significant stenosis is demo nstrated. 2. The left carotid artery system is within normal limits. Michael Lopez MD on August 29, 2017 at 16:41 Board Certified Radiologist. This report was verified electronically.
--- NOTE | 2017-08-29 16:48 | RADRPT ---
EXAM DATE/TIME: 08/29/2017 15:38 [facility] COMPARISON: No previous studies available for comparison. INDICATIONS : Preop cardiac surgery. MEDICAL HISTORY : Carcinoma, prostate. SURGICAL HISTORY : Cardiac stent. Right groin hernia repair. Cardiac catheterization. Prostate surgery. ENCOUNTER: Initial ACUITY: 1 day PAIN SCORE: 0/10 LOCATION: Bilateral legs. GREATER SAPHENOUS VEIN THIGH: PROXIMAL: Right 5 mm Left 4 mm MID: Right 3 mm Left 4 mm DISTAL: Right 3 mm Left 3 mm CALF: PROXIMAL: Right 3 mm Left 3 mm MID: Right 2 mm Left 2 mm DISTAL: Right 3 mm Left 3 mm FINDINGS: The venous system of the lower extremities are patent by color Doppler imaging. Measurements of the leg veins (in mm) are listed above. CONCLUSION: Patent superficial venous systems bilaterally with diameter measurements given above. Ziggy Barlow MD on August 29, 2017 at 16:46 Board Certified Radiologist. This report was verified electronically.
[2017-08-29 17:08] LABS: HEMOGLOBIN A1C 5.7 % (4.3-6.0)
--- NOTE | 2017-08-29 17:29 | MB ---
cc: SAIRA XIONG DATE OF CONSULTATION: 08/29/2017 DATE OF : 1935 REASON FOR CONSULTATION: 82 -year-old male patient of Dr. Talita Bonilla, Dr. Diez who presented to the emergency department August 28, secondary to chest pain and shortness of breath. He states that he has been having some symptoms off/on since June, however, seems to be worse after thanks when he and his both apparently had the flu. He had been complaining of some tightness in his chest, off and on, mainly when he is exerting himself. On the day of admission he was apparently out polishing the frey of his car and had a persistent dull steady pain that did not go away. He had recently been seen by Dr. Diez's office and had a stress test which he said was okay. His echocardiogram showed an ejection fraction of 56%, on July 02, some very mild mitral regurgitation, mild aortic insufficiency, mildly dilated left atrium. Upon arrival to the emergency room they did a complete work up which showed some elevated troponin' s of 0.86. His electrocardiogram showed normal sinus rhythm, had no acute ST changes. He underwent cardiac catheterization today by Dr. Noyola which showed a left main 10% stenosed, proximal left anterior descending 90, the distal left anterior descending at 70%, diagonal 10%. The circumflex 95%. The om 20%, the right coronary artery 40%. He also had some reinstent stenosis of 40% in the left anterior descending stents. O PAST MEDICAL HISTORY Coronary artery disease. History of prostate cancer. SURGERIES: Cardiac catheterization with Cypher stent from left anterior descending in 2003. Bilateral inguinal hernia repair. Prostate surgery. ALLERGIES [facility] HOME MEDICATIONS: Iron. Crestor 5 mg Metoprolol 25 mg Losartan 25 mg Aspirin 81 mg Magnesium. Zinc Niacin Folic acid Calcium Ocuvite Proscar 5 mg FAMILY HISTORY: Denies any premature coronary artery disease or sudden . SOCIAL HISTORY: The patient smoked in the past, he quit 40 years ago, rare alcohol. The patient is , lives with his . REVIEW OF SYSTEMS IN GENERAL: No night sweats, fever, heat or cold intolerance. SKIN: No psoriasis, itching or hives. HEAD, EYES, EARS, NOSE, AND THROAT: No blurred vision or hearing loss. RESPIRATORY: Some shortness of breath. CARDIOVASCULAR SYSTEM: As above in the history of present illness. GENITOURINARY: No burning, frequency, urgency. CENTRAL NERVOUS SYSTEM: No history of transient ischemic attack, cerebrovascular accident, or seizure disorder. ENDOCRINOLOGY: No history of diabetes and no hypothyroidism. PHYSICAL EXAMINATION: VITAL SIGNS: Blood pressure 140/70, heart rate 60, temperature max 98.2. IN GENERAL: The patient is awake, alert, in no acute distress. HEAD, EYES, EARS, NOSE, AND THROAT: Normocephalic, atraumatic, Pupils equal, round and reactive. Oral mucosa is pink and moist. NECK: The neck is supple. No jugular venous distention. HEART: Heart sounds, S1, s2, Regular rate and rhythm. No rubs, murmurs or gallops. LUNGS: Clear to auscultation, no wheezes, rales or rhonchi. ABDOMEN: The abdomen is soft, nontender, no masses or organomegaly. EXTREMITIES: No clubbing, cyanosis or edema. LABORATORY FINDINGS: Laboratory work shows hemoglobin of 9.9. Hematocrit of 30, white cell count of 9.2, platelet count of 267, mean corpuscular volume is 90. Chemistries show sodium 141, potassium 5.2, blood urea nitrogen 32, creatinine 1.53, aspartate aminotransferase 19, ALT 27, INR 1.1. His Ddimer was elevated at 4.5, they did a VQ scan which showed low probability of pulmonary emboli. Chest x-ray showed no acute disease. IMPRESSION/PLAN: 1. This is an 82 year-old male with non-ST segment myocardial infarction, multivessel disease, coronary films will be evaluated by Dr. Saira Xiong in evaluation of coronary artery bypass grafting. 2. History of normocytic anemia, we will check iron levels. 3. Hypertension. 4. History of prostate cancer. 5. Chronic kidney disease, stage 3. Creatinine is 1.53, post catheterization. The timing for surgery as per Dr. Saira Xiong. Saira Xiong MD DICTATED BY: AMAN Valenzuela /2:26 PM /3:12 PM
--- NOTE | 2017-08-29 17:38 | ECHRPT ---
Indication: NSTEMI CONCLUSIONS The left ventricular systolic function is normal with an estimated ejection fraction in the range of 55-60%. Doppler parameters are consistent with impaired left ventricular relaxtion (grade 1 diastolic dysfun ction). Trace mitral valve regurgitation. Mild aortic valve regurgitation. There is trace tricuspid valve regurgitation. Trivial pulmonary valve regurgitation. BP: 145 / 70 HR: Rhythm: MEASUREMENTS (Male / Female) Normal Values Technical Quality: 2D ECHO LV Diastolic Diameter PLAX 5.1 cm 4.2 - 5.9 / 3.9 - 5.3 cm LV Systolic Diameter PLAX 3.5 cm IVS Diastolic Thickness 0.8 cm 0.6 - 1.0 / 0.6 - 0.9 cm LVPW Diastolic Thickness 0.8 cm 0.6 - 1.0 / 0.6 - 0.9 cm LV Relative Wall Thickness 0.3 RV Internal Dim ED PLAX 3.0 cm LVOT Diameter 2.0 cm Aortic Root Diameter 2.8 cm LA Systolic Diameter LX 3.7 cm 3.0 - 4.0 / 2.7 - 3.8 cm M-MODE AV Cusp Separation MM 2.0 cm DOPPLER AV Peak Velocity 121.0 cm/s AV Peak Gradient 5.9 mmHg AV Mean Gradient 3.0 mmHg AV Velocity Time Integral 26.4 cm AI Peak Velocity 290.0 cm/s AI Peak Gradient 33.6 mmHg AI Pressure Half Time 702.5 ms LVOT Peak Velocity 105.0 cm/s LVOT Peak Gradient 4.4 mmHg LVOT Velocity Time Integral 25.4 cm AV Area Cont Eq vti 3.0 cm AV Area Cont Eq pk 2.7 cm Mitral E Point Velocity 79.0 cm/s Mitral A Point Velocity 103.0 cm/s Mitral E to A Ratio 0.8 LV E' Lateral Velocity 6.3 cm/s Mitral E to LV E' Lateral Ratio 12.5 LV E' Septal Velocity 7.4 cm/s Mitral E to LV E' Septal Ratio 10.7 TR Peak Velocity 300.0 cm/s TR Peak Gradient 36.0 mmHg Right Atrial Pressure 10.0 mmHg Pulmonary Artery Systolic Pressu 46.0 mmHg Right Ventricular Systolic Press 46.0 mmHg PV Peak Velocity 75.9 cm/s PV Peak Gradient 2.3 mmHg FINDINGS LEFT VENTRICLE Normal left ventricular size. Wall thickness is normal. The left ventricular systolic function is normal with an estimated ejection fraction in the range of 55-60%. No regional wall motion abnormalities are present. Doppler parameters are consistent with impaired left ventricular relaxtion (grade 1 diastolic dysfun ction). RIGHT VENTRICLE The right ventricular size is normal. The right ventricular systoilc function is normal. LEFT ATRIUM The left atrial size is normal. RIGHT ATRIUM The right atrial size is normal. ATRIAL SEPTUM Normal atrial septal thickness. AORTA The aortic root and proximal ascending aorta are not well visualized. MITRAL VALVE Structurally normal mitral valve. Mild mitral annular calcification. Trace mitral valve regurgitation. No mitral valve stenosis. AORTIC VALVE Grossly normal aortic valve Mild aortic valve regurgitation. No aortic valve stenosis. TRICUSPID VALVE Structurally normal tricuspid valve. There is trace tricuspid valve regurgitation. No tricuspid valve stenosis. PULMONARY VALVE The pulmonary valve is not well visualized. Trivial pulmonary valve regurgitation. PERICARDIUM There is no pericardial effusion. Bird Noyola DO (Electronically Signed) Final Date:29 August 2017 17:37
[2017-08-29] MEDS: HEPARIN-D5W 25,000 U/250 ML 250 ML IV PRN (19:59)
[2017-08-29 20:46] LABS: BILIRUBIN, URINE NEG (NEG); BLOOD, URINE NEG (NEG); GLUCOSE,URINE NEG (NEG); KETONE, URINE NEG (NEG); NITRITE,URINE NEG (NEG); PH, URINE 5.5 (5.0-8.5); URINE COLOR LIGHT-YELLOW (YELLW/STRAW); URINE LEUKOCYTE ESTERASE NEG (NEG)
[2017-08-29] MEDS ORDERED: SODIUM CHLORIDE 0.9% FLUSH 10 ML FLUSH IV FLUSH SCH (21:00)
--- NOTE | 2017-08-29 22:41 | EKG ---
Date Performed: 08/29/2017 Time Performed: 01:00:07 PTAGE: 82 years EKG: Sinus rhythm NORMAL ECG PREVIOUS TRACING : 08/28/2017 17.12 Compared to prior tracing no significant change DOCTOR: Ervin Solis Interpretating Date/Time 08/29/2017 22:39:32
--- NOTE | 2017-08-29 23:12 | EKG ---
Date Performed: 08/28/2017 Time Performed: 17:12:44 PTAGE: 82 years EKG: SINUS BRADYCARDIA BORDERLINE ECG PREVIOUS TRACING : 08/28/2017 10.42 Compared to the previous tracing sinus bradycardia is new DOCTOR: Ervin Solis Interpretating Date/Time 08/29/2017 23:11:57
[2017-08-30] VITALS (15 sets, daily range): BP systolic 92–136; BP diastolic 49–82; PULSE 55–105; RESP 12–18; TEMP 97.5–98.1; O2SAT 94–99
[2017-08-30 02:06] LABS: AUTOMATED NEUTROPHIL # 5.4 TH/MM3 (1.8-7.7); BASOPHIL % 0.2 % (0.0-2.0); EOSINOPHIL # 0.2 TH/MM3 (0-0.4); EOSINOPHIL % 2.9 % (0.0-4.0); HEMATOCRIT 29.3 % (39.0-51.0); HEMOGLOBIN 9.6 GM/DL (13.0-17.0); LYMPH % 20.9 % (9.0-44.0); LYMPHOCYTE # 1.7 TH/MM3 (1.0-4.8); MEAN CELL VOLUME 89.5 FL (80.0-100.0); MEAN CORPUSCULAR HEMOGLOBIN 29.4 PG (27.0-34.0); MEAN CORPUSCULAR HGB CONC 32.9 % (32.0-36.0); MEAN PLATELET VOLUME 8.6 FL (7.0-11.0); MONO % 10.8 % (0.0-8.0); MONOCYTE # 0.9 TH/MM3 (0-0.9); NEUT % 65.2 % (16.0-70.0); PLATELET COUNT 250 TH/MM3 (150-450); RED BLOOD COUNT 3.28 MIL/MM3 (4.50-5.90); RED CELL DISTRIBUTION WIDTH 14.1 % (11.6-17.2); WHITE BLOOD COUNT 8.2 TH/MM3 (4.0-11.0)
[2017-08-30] MEDS ORDERED: CHLORHEXIDINE GLUCONATE 2 % 1 PACK (2 CLOTHS) TOPICAL PRN (02:15)
[2017-08-30] MEDS ORDERED: LACTATED RINGER'S 1000 ML IV PRN (02:15)
[2017-08-30] MEDS ORDERED: POVIDONE IODINE 5% (ANTISEPSIS KIT) 4 APPLICATIONS EACH NARE PRN (02:15)
[2017-08-30] MEDS ORDERED: SODIUM CHLORID 0.9% 500 ML IV PRN (02:15)
[2017-08-30 02:42] LABS: ALBUMIN 3.2 GM/DL (3.4-5.0); ALT (GPT) 25 U/L (12-78); AST (GOT) 20 U/L (15-37); BICARBONATE 19.8 MEQ/L (21.0-32.0); BLOOD UREA NITROGEN 34 MG/DL (7-18); CALCIUM 8.3 MG/DL (8.5-10.1); CHLORIDE 112 MEQ/L (98-107); CREATININE 1.58 MG/DL (0.60-1.30); GLOMERULAR FILTRATION RATE 42 ML/MIN (>89); GLUCOSE,RANDOM 88 MG/DL (74-106); SODIUM (NA) 142 MEQ/L (136-145)
[2017-08-30 02:44] LABS: ALKALINE PHOSPHATASE 92 U/L (45-117); TOTAL BILIRUBIN ADULT 0.4 MG/DL (0.2-1.0); TOTAL PROTEIN 6.8 GM/DL (6.4-8.2)
[2017-08-30] MEDS ORDERED: methylPREDNISolone SOD SUCC 125 MG/2 ML VIAL ONE (06:16)
[2017-08-30] MEDS ORDERED: VANCOMYCIN HCL 1000 MG VIAL ONE (06:17)
[2017-08-30] MEDS ORDERED: HEPARIN SODIUM - SQ 10,000 UNITS/ML VIAL ONE (06:17)
[2017-08-30] MEDS ORDERED: ceFAZolin 2 GM PREMIX 50 ML ONE (06:17)
[2017-08-30] MEDS ORDERED: CARDIOPLEGIC IRR 2,000 ML ONE (07:04)
[2017-08-30] MEDS ORDERED: POTASSIUM CHLORIDE 20 MEQ/10 ML VIAL ONE (07:05)
[2017-08-30] MEDS ORDERED: MANNITOL INJ 100 ML ONE (07:06)
[2017-08-30] MEDS ORDERED: ALBUMIN 25% INJ 50 ML IV ONE (07:06)
[2017-08-30] MEDS ORDERED: HEPARIN SODIUM - IV 10,000 UNITS/10 ML VIAL ONE (07:07)
[2017-08-30] MEDS ORDERED: SODIUM BICARBONATE 8.4% INJ 100 ML ONE (07:07)
[2017-08-30] MEDS: FOLIC ACID 1 MG TAB PO SCH (09:00)
[2017-08-30] MEDS: CHOLECALCIFEROL (VIT D3) 1000 UNIT TAB PO SCH (09:00)
[2017-08-30] MEDS: ATORVASTATIN 80 MG TAB PO SCH (09:00)
[2017-08-30] MEDS: MULTIVITAMIN-OPHTHALMIC 1 TAB PO SCH (09:00)
[2017-08-30] MEDS: FERROUS SULFATE 325 MG (65 MG ELEMENTAL IRON) TAB PO SCH (09:00)
[2017-08-30] MEDS: FINASTERIDE 5 MG TAB PO SCH (09:00)
--- NOTE | 2017-08-30 10:37 | PD.CAR.PN ---
CVT Progress Note Subjective/Hospital Course: 82 -year-old male patient of Dr. Talita Bonilla, Dr. Diez who presented to the emergency department August 28, secondary to chest pain and shortness of breath. He states that he has been having some symptoms off/on since June, however, seems to be worse after thanksgi when he and his both apparently had the flu. He had been complaining of some tightness in his chest, off and on, mainly when he is exerting himself. On the day of admission he was apparently out polishing the frey of his car and had a persistent dull steady pain that did not go away. He had recently been seen by Dr. Diez's office and had a stress test which he said was okay. His echocardiogram showed an ejection fraction of 56%, on July 02,mild mitral regurgitation, mild aortic insufficiency, mildly dilated left atrium. Upon arrival to the emergency room they did a complete work up which showed some elevated troponin' s of 0.86. His electrocardiogram showed normal sinus rhythm, had no acute ST changes. He underwent cardiac catheterization today by Dr. Noyola which showed a left main 10% stenosed, proximal left anterior descending 90, the distal left anterior descending at 70%, diagonal 10%. The circumflex 95%. The om 20%, the right coronary artery 40%. He also had some reinstent stenosis of 40% in the left anterior descending stents. Ruled in for NSTEMI PAST MEDICAL HISTORY: Coronary artery disease.( stent LAD in 2003) History of prostate cancer, CKD stabge 111 08/30 for surgery today Objective: Vital Signs Date Time Temp Pulse Resp B/P (MAP) Pulse Ox O2 Delivery O2 Flow Rate FiO2 08/30/17 06:00 55 08/30/17 05:00 61 08/30/17 04:00 58 08/30/17 04:00 98.1 84 18 133/73 (93) 97 08/30/17 01:00 79 08/30/17 00:00 98.1 78 18 135/82 (99) 97 08/30/17 00:00 78 08/29/17 23:00 58 08/29/17 22:00 62 08/29/17 20:00 68 08/29/17 19:00 98.2 63 18 118/69 (85) 93 08/29/17 18:01 64 08/29/17 17:00 98 08/29/17 16:00 56 08/29/17 15:15 98.1 58 18 117/69 (85) 98 08/29/17 15:00 63 08/29/17 14:00 60 08/29/17 13:01 66 08/29/17 12:38 98.2 60 18 143/73 (96) 96 08/29/17 11:05 100 Room Air Labs: Laboratory Tests Test 08/30/17 01:42 White Blood Count 8.2 TH/MM3 (4.0-11.0) Red Blood Count 3.28 MIL/MM3 (4.50-5.90) Hemoglobin 9.6 GM/DL (13.0-17.0) Hematocrit 29.3 % (39.0-51.0) Mean Corpuscular Volume 89.5 FL (80.0-100.0) Mean Corpuscular Hemoglobin 29.4 PG (27.0-34.0) Mean Corpuscular Hemoglobin Concent 32.9 % (32.0-36.0) Red Cell Distribution Width 14.1 % (11.6-17.2) Platelet Count 250 TH/MM3 (150-450) Mean Platelet Volume 8.6 FL (7.0-11.0) Neutrophils (%) (Auto) 65.2 % (16.0-70.0) Lymphocytes (%) (Auto) 20.9 % (9.0-44.0) Monocytes (%) (Auto) 10.8 % (0.0-8.0) Eosinophils (%) (Auto) 2.9 % (0.0-4.0) Basophils (%) (Auto) 0.2 % (0.0-2.0) Neutrophils # (Auto) 5.4 TH/MM3 (1.8-7.7) Lymphocytes # (Auto) 1.7 TH/MM3 (1.0-4.8) Monocytes # (Auto) 0.9 TH/MM3 (0-0.9) Eosinophils # (Auto) 0.2 TH/MM3 (0-0.4) Basophils # (Auto) 0.0 TH/MM3 (0-0.2) CBC Comment DIFF FINAL Differential Comment Activated Partial Thromboplast Time 29.9 SEC (24.3-30.1) Blood Urea Nitrogen 34 MG/DL (7-18) Creatinine 1.58 MG/DL (0.60-1.30) Random Glucose 88 MG/DL (74-106) Total Protein 6.8 GM/DL (6.4-8.2) Albumin 3.2 GM/DL (3.4-5.0) Calcium Level 8.3 MG/DL (8.5-10.1) Alkaline Phosphatase 92 U/L (45-117) Aspartate Amino Transf (AST/SGOT) 20 U/L (15-37) Alanine Aminotransferase (ALT/SGPT) 25 U/L (12-78) Total Bilirubin 0.4 MG/DL (0.2-1.0) Sodium Level 142 MEQ/L (136-145) Potassium Level 5.2 MEQ/L (3.5-5.1) Chloride Level 112 MEQ/L (98-107) Carbon Dioxide Level 19.8 MEQ/L (21.0-32.0) Anion Gap 10 MEQ/L (5-15) Estimat Glomerular Filtration Rate 42 ML/MIN (>89) Result Diagram: 08/30/1714108/30/17141 (1) Chronic kidney disease (2) NSTEMI (non-ST elevated myocardial infarction) (3) Chest pain (4) Coronary artery disease Problem Qualifiers (1) Chronic kidney disease: Qualified Codes: N18.3 - Chronic kidney disease, stage 3 (moderate) (2) Chest pain: Qualified Codes: R07.9 - Chest pain, unspecified Flor Botello Aug 30, 2017 10:37
--- NOTE | 2017-08-30 10:46 | HHI.FF ---
Face to Face Verification Diagnosis: (1) S/P CABG (coronary artery bypass graft) (2) Chest pain (3) Coronary artery disease (4) Chronic kidney disease (5) NSTEMI (non-ST elevated myocardial infarction) Home Health Nursing Order: Signs/symptoms of disease process Medication education-adverse effect Wound care and dressing changes Nursing assessment with vital signs Instructions: Heart and Vascular Surgery patients *Special attention to sternal dressing Mandatory frequency Assess and evaluation, 4 days in a row The next week 3X week 2 times a week for 4 weeks 1 time a week for 5 weeks Schedule Heart and Vascular patients for full 60 day certification period Initial visit Review Open Heart Surgery Discharge Instructions (Sternal precautions, Activity, Elastic hose, Incision care, Driving, Incentive spirometry, Smoking, [place], Work and other) Need Betadine to paint incision Medication reconciliation Importance of follow up care/ check on appointments Make calendar record temperature daily When to call [facility] nurse, review instructions, phone list Incentive Spirometry, demonstration Visit 1- Begin discharge instruction for patient family and/ or caregiver using teach back method- Signs and symptoms of infection Disease characteristics Medicines and side effects Foods and nutrition/ appetite Infection control/ hand washing/ hygiene Visit 2- Continue teaching Discharge instructions- include additional information on smoking cessation , sternal dressing (sternal vac) Visit 3- Continue teaching- Cough and deep breathing, incision monitoring. Choose my plate Visit 4- Continue teaching- Discuss limitations Discuss how they are feeling Discuss progress toward goals Remaining visits- continue teaching and monitoring PREVENA Single Use Negative Wound Therapy System Caregiver Instruction Sheet 1. A Prevena dressing system was applied to the chest incision during surgery , to promote wound healing. It works via a suction device (negative pressure wound therapy) to remove low to moderate levels of exudate (drainage) and infectious materials. We recommend that the device stay in place for up to seven days, from day of surgery. 2. Day of Surgery__08/30/17 Day of Removal ____09/06/16 3. The dressing should only be removed by a health care associate. Please arrange removal of device to coincide with Home Health visit and or with Nursing staff at Rehab 4. If skin reddening or irritation of skin occurs, or excessive drainage, please notify the Cardiovascular Surgeons office at [phone]. 5. Light showering is permissible; however the pump should be disconnected and placed in safe location, where it will not get wet. The dressing should not be exposed to direct spray or submerged in water. No bath tub / shower only. Ensure the end of the tubing attached to the dressing is facing down so that water does not enter the top of the tube. 6. To remove Prevena dressing: press purple button to turn off device / remove the suction. Then disconnect the tubing from the pump. The fixation strips should be stretched away from the skin and the dressing lifted at one corner and peeled back until it has been fully removed. 7. After removal, it is ok to shower daily using liquid dial soap and clean wash cloth, rinse and pat dry, and leave incision open to air dry. For any concerns regarding Prevena dressing, and or wounds, please contact Alyssa Quintana, patient navigator at [phone] or notify the Cardiovascular Surgeons office at [phone]. Incentive spirometry Q1 hr x 10, while awake, also use acapella device hourly whole awake Sternal Breast Bone Precautions: NO pushing or pulling, ( pt must use sternal pillow to support chest with all activities and with coughing ( takes up to 3 months breast bone to heal ) Daily incision care: ok to shower daily, no tub bath. Wash all incisions with liquid dial soap, clean wash cloth to each site, rinse and pat dry. Observe for any signs of infection, such as drainage which is dark yellow, millan, green or foul smelling. Immediately report to the surgeon any drainage from the chest incision, or legs, and for any abnormal drainage from the chest tube sites. Notify surgeon if any temp >101.5 degrees F. When specialty dressing removed/ or if you do not have one, continue to shower daily as above, then rinse and pat incision dry and paint with betadine daily x 5 days. Allow steri strips to fall off if you have any. Avoid lotions, creams, salves, oils, etc. for the first month Please see attached forms for additional instructions regarding post Open Heart specialty wound vacuum dressings. BROOKS or Prevena , Dressing to be removed by Nursing staff on __09/06/[address] Xiong patients , please obtain CBC, BMP, PA & Lat CXR in 2 weeks, results to Dr. Xiong ( prescription will be given) ( ) (Tele: [phone]) F/U appointment: as per [place] instructions: PCP in 2 weeks, CV surgeon 2 weeks, Care Program Director 3-4 weeks For any questions regarding incisions/ dressing / meds / post op care or above Symptoms, Saturday 8am-5pm Heart & Vascular Surgery Office ( Dr. Douglas & Dr. Xiong), After Hours / Nights (5pm -8am) Weekends and Holidays Please call [facility] ([facility]) Charge Nurse I have seen patient Min Rucker on 08/30/17. My clinical findings support the need for the requested home health care services because: Deconditioned w/ increased weakness I certify that my clinical findings support that this patient is homebound because: Post-op weakness Flor Botello Aug 30, 2017 10:46
[2017-08-30] MEDS ORDERED: ceFAZolin INJ 1,000 MG VIAL ONE (11:30)
[2017-08-30] MEDS ORDERED: PHENYLEPH/NS 1000 MCG/10 ML SYR IV ONE (12:00)
[2017-08-30] MEDS ORDERED: WATE IV ONE (12:00)
[2017-08-30] MEDS ORDERED: MAGNESIUM SULFATE 1 GM/2 ML VIAL IV ONE (12:00)
[2017-08-30] MEDS ORDERED: NITROGLYCERIN 50 MG/DEXTROSE 5% SOLN 250 ML BTL IV ONE (12:00)
[2017-08-30] MEDS ORDERED: CALCIUM CHLORIDE 10% SOLN 1 GRAM/10 ML SYR IV ONE (12:00)
[2017-08-30] MEDS ORDERED: MIDAZOLAM HCL 2 MG/2 ML VIAL IV ONE (12:00)
[2017-08-30] MEDS ORDERED: DEXMEDETOMIDINE HCL 200 MCG/2 ML VIAL IV ONE (12:00)
[2017-08-30] MEDS ORDERED: HEPARIN SODIUM - SQ 10,000 UNITS/ML VIAL OTHER ONE (12:00)
[2017-08-30] MEDS ORDERED: ePHEDrine/NS 25 MG/5 ML SYRINGE IV ONE (12:00)
[2017-08-30] MEDS ORDERED: PHENYLEPHRINE HCL 10 MG/ML VIAL IV ONE (12:00)
[2017-08-30] MEDS ORDERED: ARTIFICIAL TEARS OPTH OINT 3.5 APPLIC/3.5 GM TUBO EACH EYE ONE (12:00)
[2017-08-30] MEDS ORDERED: VECURONIUM BROMIDE 10 MG VIAL IV ONE (12:00)
[2017-08-30] MEDS ORDERED: TRANEXAMIC ACID INJ 1,000 MG/10 ML AMP IV ONE (12:00)
[2017-08-30] MEDS ORDERED: LACTATED RINGER'S 1000 ML INJ 2,000 ML IV ONE (12:00)
[2017-08-30] MEDS ORDERED: DEXTROSE 5% IV ONE (12:00)
[2017-08-30] MEDS ORDERED: AMIODARONE HCL 150 MG/3 ML VIAL IV ONE (12:00)
[2017-08-30] MEDS ORDERED: fentaNYL CITRATE 1000 MCG/20 ML VIAL IV ONE (12:00)
[2017-08-30] MEDS ORDERED: SODIUM BICARBONATE 8.4% INJ 50 MEQ/50 ML SYR IV ONE (12:00)
[2017-08-30] MEDS ORDERED: DEXTROSE 5% IN WATER INJ 500 ML IV ONE (12:00)
[2017-08-30] MEDS ORDERED: PROTAMINE SULFATE 250 MG/25 ML VIAL IV ONE (12:00)
[2017-08-30] MEDS ORDERED: DEXTROSE 5% IN WATER 100 ML BAG IV ONE (12:00)
[2017-08-30] MEDS ORDERED: LIDOCAINE HCL 1% PF 5 ML AMPULE OTHER ONE (12:00)
[2017-08-30] MEDS ORDERED: LACTATED RINGER'S 1000 ML INJ 500 ML IV PRN (12:16)
--- NOTE | 2017-08-30 12:28 | PD.OP ---
cc: Brock Diez MD; Saira Xiong MD; Bidr Noyola DO Operative Report Date of Surgery: Aug 30, 2017 Preoperative Diagnosis: (1) NSTEMI (non-ST elevated myocardial infarction) (2) Coronary artery disease (3) Chest pain Postoperative Diagnosis: same Procedure: Urgent CABG x 4 FELDMAN to LAD - good SVG to OM2 - good SVG to Ramus - good SVG to D1 - good EVH - right and left legs Anesthesia: Dr. Perry Surgeon: Saira Xiong Time Study Technologist(s): MICHEL Ashford Operation and Findings: The risks, benefits, complications, treatment options, and expected outcomes were discussed with the patient. The possibilities of reaction to medication, pulmonary aspiration, perforation of viscus, bleeding, recurrent infection, the need for additional procedures, failure to diagnose a condition, and creating a complication requiring transfusion or operation were discussed with the patient. The patient concurred with the proposed plan, giving informed consent. The site of surgery properly noted/marked. The patient was taken to Operating Room, identified as Min Rucker and the procedure verified as CABG, EVH. A Time Out was held and the above information confirmed. Standard monitoring lines and Fisher catheter were placed. General anesthesia was induced. The patient was prepped and draped in a sterile fashion. A median sternotomy was performed and electrocautery was used to obtain hemostasis. The left internal mammary artery was procured as a pedicle from the 7th rib to the 1st rib in the usual manner. Simultaneously left and right greater saphenous vein was procured from the left leg using a minimally invasive endoscopic technique. The vein was prepared for anastomosis and the leg wounds were irrigated and closed in 2 layers. The pericardium was opened and a pericardial sling was created using interrupted 0 silk sutures. The patient was heparinized for cardiopulmonary bypass and the distal mammary pedicle was instrumented for anastomosis. The heart was instrumented for cardiopulmonary bypass in the usual manner. Antegrade blood cardioplegia was employed. The patient was placed on cardiopulmonary bypass. An aortic cross-clamp was applied and the heart was arrested using cold blood cardioplegia. Antegrade cardioplegia was administered after he each anastomosis. After adequate arrest, the OM2 was opened with a Campo blade and found to be a 1.5 millimeter good target. Saphenous vein was approximated to the OM2 artery using a running 7 0 Prolene suture. The graft was measured for length and orientation and the proximal anastomosis was constructed to the ascending aorta using a running 5 0 Prolene suture after creating an aortotomy with a 5 millimeter punch. The Ramus Intermedius was opened with a Campo blade and found to be a 1.5 millimeter good target. Saphenous vein was approximated to the RI artery using a running 7 0 Prolene suture. The graft was measured for length and orientation and the proximal anastomosis was constructed to the ascending aorta using a running 5 0 Prolene suture after creating an aortotomy with a 5 millimeter punch. The 1st diagonal artery was then opened with a Campo blade and found to be a 1.5 millimeter good target. Saphenous vein was approximated to the D1 artery using a running 7 0 Prolene suture. The graft was measured for length and orientation and was suspended from the pericardium. The distal LAD was opened with a Campo blade and found to be a 1.5 millimeter good target. The left internal mammary artery was approximated to the LAD using a running 7 0 Prolene suture. The pedicle was attached to the epicardium using interrupted 5 0 silk suture. The patient was systemically rewarmed and received a hotshot dose of warm blood cardioplegia. The aorta was vented and the proximal anastomosis to the D1 graft was accomplished using a running 5 0 Prolene suture after creating an aortotomy was a 5 millimeter punch. The cross -clamp was removed and all proximal and distal anastomoses were examined for hemostasis. The patient was weaned from cardiopulmonary bypass. Protamine was given. There was no adverse reaction. Decannulation was carried out without incident. Wound was checked for hemostasis which was obtained using electrocautery. A 36 [place] mediastinal and 32 [place] left pleural chest tubes were placed and secured to the skin with 0 silk suture. The sternum was closed with stainless steel wire. The fascia was closed with 1. PDS. The subcutaneous tissue was closed using a running 2-0 Vicryl suture. The skin was closed with 4- 0 Monocryl. Sterile dressings were placed. At the end of the operation, all sponge, instruments, and needle counts were correct. The patient was transferred to the CVICU in stable condition. Findings: good distal targets XC: 69 min CPB: 80 min Drains: mediastinal x 1 pleural x 1 Complications: none Disposition: to CVICU in stable condition Saira Xiong MD Aug 30, 2017 12:28
[2017-08-30] MEDS ORDERED: DEXTROSE 50% IN WATER 50 ML VIAL(D50) IV PUSH PRN (12:30)
[2017-08-30] MEDS ORDERED: ONDANSETRON HCL 4 MG/2 ML VIAL IV PUSH PRN (12:30)
[2017-08-30] MEDS ORDERED: POTASSIUM CHLOR 20 MEQ PREMIX 100 ML IV PRN ×3 (12:30)
[2017-08-30] MEDS ORDERED: SODIUM BICARBONATE 8.4% SOLN 50 MEQ/50 ML VIAL IV PUSH PRN ×2 (12:30)
[2017-08-30] MEDS ORDERED: CALCIUM CHLORIDE INJ 1 GM in SODIUM CHLORIDE 0.9% INJ 100 ML IV PRN (12:30)
[2017-08-30] MEDS ORDERED: CALCIUM CHLORIDE 10% 1 GRAM/10 ML VIAL IV PUSH PRN (12:30)
[2017-08-30] MEDS ORDERED: ALBUMIN 5% INJ 250 ML IV PRN (12:30)
[2017-08-30] MEDS ORDERED: POTASSIUM CHLORIDE 20 MEQ CONTROLLED RELEASE TAB PO PRN ×2 (12:30)
[2017-08-30] MEDS ORDERED: RESP: RACEPINEPHRINE 2.25% 0.5 ML NEB NEB PRN (12:30)
[2017-08-30] MEDS ORDERED: SODIUM CHLORIDE 0.9% FLUSH 10 ML FLUSH IV FLUSH PRN (12:30)
[2017-08-30] MEDS ORDERED: MAGNESIUM SULFATE INJ 2 GM in SODIUM CHLORIDE 0.9% INJ 100 ML IV PRN ×4 (12:30)
[2017-08-30] MEDS ORDERED: INSULIN REGULAR (IV INFUSION) 100 UNITS in SODIUM CHLORIDE 0.9% INJ 99 ML IV PRN (12:30)
[2017-08-30] MEDS ORDERED: RESP: ALBUTEROL 2.5 MG/IPRATROPIUM 0.5 MG NEB (PRN) NEB (12:30)
[2017-08-30] MEDS ORDERED: METOPROLOL TARTRATE 5 MG/5 ML VIAL IV PUSH PRN (12:30)
[2017-08-30] MEDS ORDERED: DEXMEDETOMIDINE INJ 200 MCG in SODIUM CHLORIDE 0.9% INJ 50 ML IV PRN (12:30)
[2017-08-30] MEDS ORDERED: hydrALAZINE HCL 20 MG/ML VIAL IV PUSH PRN (12:30)
[2017-08-30] MEDS ORDERED: CLEVIDIPINE INJ 50 ML IV PRN (12:30)
[2017-08-30] MEDS ORDERED: Post-op Orders (for Pharmacy) OTHER ONE (12:56)
[2017-08-30] MEDS ORDERED: ACETAMINOPHEN 650 MG SUPP RECTAL PRN (13:30)
[2017-08-30] MEDS ORDERED: ACETAMINOPHEN 325 MG TAB PO PRN (13:30)
--- NOTE | 2017-08-30 13:53 | RADRPT ---
EXAM DATE/TIME: 08/30/2017 13:11 [facility] COMPARISON: CHEST SINGLE AP, August 28, 2017, 11:14. INDICATIONS : Status post CABG. MEDICAL HISTORY : Prostate cancer. SURGICAL HISTORY : Cardiac stent. Right groin hernia repair. Cardiac catheterization. Prostate ENCOUNTER: Subsequent ACUITY: 1 day PAIN SCORE: Non-responsive. LOCATION: Bilateral chest FINDINGS: Interval median sternotomy with intact sternal wire sutures. ET tube tip well above the nicholas. Gastr ic tube tip and side-port project within the stomach. Left mediastinal drain and left chest drainage tube in place without evidence of pneumothorax. Right jugular catheter tip projects of the origin of the superior vena cava. Patchy infiltrates in the right lower lung. The left lung is clear. The heart is normal size. CONCLUSION: Expected postsurgical changes status post CABG with multiple lines and tubes as described above. Brandyn Lieberman MD on August 30, 2017 at 13:49 Board Certified Radiologist. This report was verified electronically.
[2017-08-30] MEDS: ACETAMINOPHEN 1000 MG/100 ML 100 ML IV SCH ×2 (14:22→19:43)
[2017-08-30] MEDS: AMIODARONE 200 MG TAB PO SCH ×2 (15:38→21:41)
--- NOTE | 2017-08-30 17:03 | HHI.PR ---
Subjective Remarks Nursing denies any deterioration since last night. Patient is currently status post 4 vessel bypass. No acute events noted overnight. Objective Vital Signs Date Time Temp Pulse Resp B/P (MAP) Pulse Ox O2 Delivery O2 Flow Rate FiO2 08/30/17 15:14 99 40 08/30/17 13:30 97.6 08/30/17 13:30 70 08/30/17 13:30 50 08/30/17 13:30 97.6 70 12 92/53 (66) 95 111/49 (69) 08/30/17 13:00 94 50 08/30/17 06:00 55 08/30/17 05:00 61 08/30/17 04:00 58 08/30/17 04:00 98.1 84 18 133/73 (93) 97 08/30/17 01:00 79 08/30/17 00:00 98.1 78 18 135/82 (99) 97 08/30/17 00:00 78 08/29/17 23:00 58 08/29/17 22:00 62 08/29/17 20:00 68 08/29/17 19:00 98.2 63 18 118/69 (85) 93 08/29/17 18:01 64 I/O 08/29/17 08/29/17 08/29/17 08/30/17 08/30/17 08/30/17 07:00 15:00 23:00 07:00 15:00 23:00 Intake Total 480 ml 240 ml 3650 ml Output Total 150 ml 150 ml 3900 ml Balance 330 ml 90 ml -250 ml Intake Oral 480 ml 240 ml Autotransfusion 1150 ml Other 2500 ml Output Urine Total 150 ml 150 ml 400 ml Estimated Blood Loss 3500 ml # Voids 3 1 # Bowel Movements 0 Result Diagram: 08/30/17 0142 08/30/17 0142 Objective Remarks Patient currently intubated on ventilator with at least [address] Good color overall A/P Assessment and Plan Assessment and plan 82-year-old male admitted secondary to chest pain with elevated troponins. Findings overnight consistent with myocardial infarction. Unable to treat this with catheterization. s/p cabgx4. - s/p CABGx4 Acute kidney injury -Avoiding nephrotoxins -Monitor renal function DVT prophylaxis -Heparin Anticipate CT surgery becoming primary. Reconsult hospitalist if needed. Josiah Beard MD Aug 30, 2017 17:03
[2017-08-30] MEDS: SODIUM CHLORIDE 0.9% FLUSH 10 ML FLUSH IV FLUSH SCH (19:43)
--- NOTE | 2017-08-30 20:06 | PD.CARD.PN ---
Subjective Subjective Remarks Patient seen earlier today, late entry No drips, intubated Objective Medications Current Medications Medications (Trade) Dose Ordered Sig/Anabel Route Start Time Stop Time Status Last Admin (Narcan Inj) 0.4 mg UNSCH PRN IV PUSH 08/28/17 16:00 (Vitamin D3) 1,000 units DAILY PO 08/29/17 09:00 08/29/17 08:10 (Ferrous Sulfate) 325 mg DAILY PO 08/29/17 09:00 08/29/17 08:10 (Proscar) 5 mg DAILY PO 08/29/17 09:00 08/29/17 08:09 (Folate) 1 mg DAILY PO 08/29/17 09:00 08/29/17 08:10 (Cozaar) 25 mg DAILY PO 08/29/17 09:00 Future Hold 08/29/17 08:11 (Ocuvite) 1 tab DAILY PO 08/29/17 09:00 08/29/17 08:10 Patient Own Medication PT OWN MED: MAGNES... DAILY PO 08/29/17 09:00 Future Hold Patient Own Medication PT OWN MED: ZINC GLUCON... DAILY PO 08/29/17 09:00 Future Hold (Atropine Inj) 0.5 mg UNSCH PRN IV PUSH 08/29/17 11:15 (Lipitor) 80 mg DAILY PO 08/30/17 09:00 Papaverine HCl 60 mg/Nitroglycerin 100 mcg/Diltiazem HCl 100 mg/Sodium Chloride 100 ml @ 0 mls/hr WIRE PHOTO OPERATOR IRRIGATION 08/29/17 14:30 09/05/17 14:29 08/30/17 09:30 Cefazolin Sodium 500 mg/Sodium Chloride 505 ml @ 0 mls/hr WIRE PHOTO OPERATOR IRRIGATION 08/29/17 14:30 09/05/17 14:29 08/30/17 12:25 Cefazolin Sodium/ Dextrose 50 ml @ 150 mls/hr WIRE PHOTO OPERATOR IV 08/29/17 14:30 09/05/17 14:29 (Hibiclens 4% Top Soln) 1 applic WIRE PHOTO OPERATOR TOPICAL 08/29/17 14:30 09/05/17 14:29 Sodium Chloride 500 ml @ 30 mls/hr [id number] PRN IV 08/30/17 02:15 09/02/17 02:14 (Betadine 5% Antisepsis Kit) 1 applic WIRE PHOTO OPERATOR PRN EACH NARE 08/30/17 02:15 09/02/17 02:14 (Chlorhexidine 2% Cloth) 3 pack WIRE PHOTO OPERATOR PRN TOPICAL 08/30/17 02:15 09/02/17 02:14 (NS Flush) 2 ml BID IV FLUSH 08/30/17 21:00 08/30/17 19:43 (NS Flush) 2 ml UNSCH PRN IV FLUSH 08/30/17 12:30 Dexmedetomidine HCl 200 mcg/ Sodium Chloride 52 ml @ 4.23 mls/hr TITRATE PRN IV 08/30/17 12:30 Clevidipine 50 ml @ 2 mls/hr TITRATE PRN IV 08/30/17 12:30 Albumin Human 250 ml @ 250 mls/hr UNSCH PRN IV 08/30/17 12:30 Lactated Ringer's 500 ml @ 500 mls/hr Q1H PRN IV 08/30/17 12:16 Cefazolin Sodium 1000 mg/Sodium Chloride 100 ml @ 200 mls/hr Q8H IV 08/30/17 20:00 09/01/17 04:29 08/30/17 19:42 (Aspirin Chew) 81 mg DAILY PO 08/31/17 09:00 (Protonix) 40 mg DAILY@06 PO 08/31/17 06:00 (Cordarone) 400 mg Q8HR PO 08/30/17 14:00 08/30/17 15:38 (Tylenol) 650 mg Q4H PRN PO 08/30/17 13:30 (Tylenol Supp) 650 mg Q4H PRN RECTAL 08/30/17 13:30 Acetaminophen 100 ml @ 400 mls/hr Q6H IV 08/30/17 14:00 08/31/17 08:14 08/30/17 19:43 (Percocet 5-325 Mg) 1 tab Q3H PRN PO 08/30/17 13:30 (fentaNYL INJ) 25 mcg Q1H PRN IV PUSH 08/30/17 12:30 (Zofran Inj) 4 mg Q6H PRN IV PUSH 08/30/17 12:30 (Apresoline Inj) 10 mg Q4H PRN IV PUSH 08/30/17 12:30 (Lopressor Inj) 2.5 mg Q1H PRN IV PUSH 08/30/17 12:30 Potassium Chloride 100 ml @ 50 mls/hr UNSCH PRN IV 08/30/17 12:30 Potassium Chloride 100 ml @ 50 mls/hr UNSCH PRN IV 08/30/17 12:30 Potassium Chloride 100 ml @ 50 mls/hr UNSCH PRN IV 08/30/17 12:30 (KCl) 20 meq UNSCH PRN PO 08/30/17 12:30 (KCl) 40 meq UNSCH PRN PO 08/30/17 12:30 Magnesium Sulfate 2 gm/Sodium Chloride 104 ml @ 100 mls/hr UNSCH PRN IV 08/30/17 12:30 Magnesium Sulfate 2 gm/Sodium Chloride 104 ml @ 50 mls/hr UNSCH PRN IV 08/30/17 12:30 (Calcium Chloride Inj) 0.5 gm UNSCH PRN IV PUSH 08/30/17 12:30 Insulin Human Regular 100 units/ Sodium Chloride 100 ml @ 3 mls/hr TITRATE PRN IV 08/30/17 12:30 (D50w (Vial) Inj) 50 ml UNSCH PRN IV PUSH 08/30/17 12:30 (Sodium Bicarbonate 8.4% Inj) 50 meq UNSCH PRN IV PUSH 08/30/17 12:30 (Sodium Bicarbonate 8.4% Inj) 100 meq UNSCH PRN IV PUSH 08/30/17 12:30 (Duoneb Neb) 1 ampule Q2HR NEB PRN NEB 08/30/17 12:30 (Racepinephrine 2.25% Neb) 0.5 ml UNSCH X1 PRN NEB 08/30/17 12:30 09/01/17 12:29 Vital Signs / I&O Vital Signs Date Time Temp Pulse Resp B/P (MAP) Pulse Ox O2 Delivery O2 Flow Rate FiO2 08/30/17 18:19 105 08/30/17 18:06 95 Nasal Cannula 4.00 08/30/17 17:08 14 08/30/17 16:30 40 08/30/17 16:25 95 Nasal Cannula 2 08/30/17 16:00 40 08/30/17 16:00 97.6 65 12 129/77 (94) 95 136/70 (92) 08/30/17 16:00 65 08/30/17 15:14 99 40 08/30/17 13:30 97.6 08/30/17 13:30 70 08/30/17 13:30 50 08/30/17 13:30 97.6 70 12 92/53 (66) 95 111/49 (69) 08/30/17 13:00 94 50 08/30/17 06:00 55 08/30/17 05:00 61 08/30/17 04:00 58 08/30/17 04:00 98.1 84 18 133/73 (93) 97 08/30/17 01:00 79 08/30/17 00:00 98.1 78 18 135/82 (99) 97 08/30/17 00:00 78 08/29/17 23:00 58 08/29/17 22:00 62 I/O 08/29/17 08/29/17 08/29/17 08/30/17 08/30/17 08/30/17 07:00 15:00 23:00 07:00 15:00 23:00 Intake Total 480 ml 240 ml 3755 ml 1390 ml Output Total 150 ml 150 ml 3900 ml 825 ml Balance 330 ml 90 ml -145 ml 565 ml Intake Oral 480 ml 240 ml 200 ml IV Total 105 ml 1160 ml Autotransfusion 1150 ml Tube Irrigant 30 ml Other 2500 ml Output Urine Total 150 ml 150 ml 400 ml 665 ml Gastric Drainage Total 0 ml Chest Tube Drainage Total 160 ml Estimated Blood Loss 3500 ml # Voids 3 1 # Bowel Movements 0 0 Physical Exam GENERAL: NAD SKIN: Warm and dry. HEAD: Atraumatic. Normocephalic. EYES: Pupils equal and round. No scleral icterus. No injection or drainage. ENT: No nasal bleeding or discharge. Mucous membranes pink and moist. NECK: Trachea midline. No JVD. CARDIOVASCULAR: Regular rate and rhythm. RESPIRATORY: No accessory muscle use. Diminished breath sounds bilaterally GASTROINTESTINAL: Abdomen soft, non-tender, nondistended. Hepatic and splenic margins not palpable. MUSCULOSKELETAL: Extremities without clubbing, cyanosis, or edema. No obvious deformities. NEUROLOGICAL: Intubated and sedated Laboratory Laboratory Tests Test 08/29/17 22:00 08/30/17 01:42 Nasal Screen MRSA (PCR) MRSA NOT DETECTED White Blood Count 8.2 TH/MM3 Red Blood Count 3.28 MIL/MM3 Hemoglobin 9.6 GM/DL Hematocrit 29.3 % Mean Corpuscular Volume 89.5 FL Mean Corpuscular Hemoglobin 29.4 PG Mean Corpuscular Hemoglobin Concent 32.9 % Red Cell Distribution Width 14.1 % Platelet Count 250 TH/MM3 Mean Platelet Volume 8.6 FL Neutrophils (%) (Auto) 65.2 % Lymphocytes (%) (Auto) 20.9 % Monocytes (%) (Auto) 10.8 % Eosinophils (%) (Auto) 2.9 % Basophils (%) (Auto) 0.2 % Neutrophils # (Auto) 5.4 TH/MM3 Lymphocytes # (Auto) 1.7 TH/MM3 Monocytes # (Auto) 0.9 TH/MM3 Eosinophils # (Auto) 0.2 TH/MM3 Basophils # (Auto) 0.0 TH/MM3 CBC Comment DIFF FINAL Differential Comment Activated Partial Thromboplast Time 29.9 SEC Blood Urea Nitrogen 34 MG/DL Creatinine 1.58 MG/DL Random Glucose 88 MG/DL Total Protein 6.8 GM/DL Albumin 3.2 GM/DL Calcium Level 8.3 MG/DL Alkaline Phosphatase 92 U/L Aspartate Amino Transf (AST/SGOT) 20 U/L Alanine Aminotransferase (ALT/SGPT) 25 U/L Total Bilirubin 0.4 MG/DL Sodium Level 142 MEQ/L Potassium Level 5.2 MEQ/L Chloride Level 112 MEQ/L Carbon Dioxide Level 19.8 MEQ/L Anion Gap 10 MEQ/L Estimat Glomerular Filtration Rate 42 ML/MIN Imaging Last 24 hours Impressions Chest X-Ray 08/30/17 0000 Signed Impressions: Service Date/Time: Wednesday, August 30, 2017 13:11 - CONCLUSION: Expected postsurgical changes status post CABG with multiple lines and tubes as described above. Brandyn Lieberman MD Assessment and Plan Problem List: (1) Chronic kidney disease ICD Codes: N18.9 - Chronic kidney disease, unspecified (2) NSTEMI (non-ST elevated myocardial infarction) ICD Codes: I21.4 - Non-ST elevation (NSTEMI) myocardial infarction (3) Chest pain ICD Codes: R07.9 - Chest pain, unspecified Status: Acute (4) Coronary artery disease ICD Codes: I25.10 - Atherosclerotic heart disease of [place] coronary artery without angina pectoris Assessment and Plan 1) NSTEMI/MVCAD s/p CABG POD #0 supportive care Extubate per protocol 2) Eventual BB/DANYELL-I Problem Qualifiers (1) Chronic kidney disease: Qualified Codes: N18.3 - Chronic kidney disease, stage 3 (moderate) (2) Chest pain: Qualified Codes: R07.9 - Chest pain, unspecified Bird Noyola DO Aug 30, 2017 20:06
[2017-08-31] VITALS (9 sets, daily range): BP systolic 109–143; BP diastolic 4–87; PULSE 73–110; RESP 15–20; TEMP 97.6–97.9; O2SAT 4–97
[2017-08-31] MEDS: ACETAMINOPHEN 1000 MG/100 ML 100 ML IV SCH ×2 (01:56→08:11)
[2017-08-31 02:54] LABS: HEMATOCRIT 28.6 % (39.0-51.0); HEMOGLOBIN 9.4 GM/DL (13.0-17.0); MEAN CELL VOLUME 89.3 FL (80.0-100.0); MEAN CORPUSCULAR HEMOGLOBIN 29.3 PG (27.0-34.0); MEAN CORPUSCULAR HGB CONC 32.8 % (32.0-36.0); MEAN PLATELET VOLUME 8.9 FL (7.0-11.0); PLATELET COUNT 221 TH/MM3 (150-450); RED CELL DISTRIBUTION WIDTH 14.2 % (11.6-17.2); WHITE BLOOD COUNT 15.7 TH/MM3 (4.0-11.0)
[2017-08-31 03:28] LABS: BICARBONATE 24.8 MEQ/L (21.0-32.0); CALCIUM 7.9 MG/DL (8.5-10.1); CREATININE 1.65 MG/DL (0.60-1.30); MAGNESIUM 2.9 MG/DL (1.5-2.5)
--- NOTE | 2017-08-31 05:26 | RADRPT ---
EXAM DATE/TIME: 08/31/2017 04:09 [facility] COMPARISON: CHEST SINGLE AP, August 30, 2017, 13:11. INDICATIONS : Shortness of breath, possible pulmonary disease. MEDICAL HISTORY : Carcinoma, prostatic. SURGICAL HISTORY : Coronary artery stent. CABG. ENCOUNTER: Subsequent ACUITY: 2 days PAIN SCORE: Non-responsive. LOCATION: Bilateral chest FINDINGS: CABG changes are again noted. Left chest tube remains in place. No pneumothorax seen. Mild bibasilar atelectasis, not significantly changed. Patient has been extubated. Nasogastric tube is also out. Mediastinal drain remains. There is a right internal jugular central venous catheter again seen, tip in the superior vena cava. CONCLUSION: 1. No significant change mild bibasilar atelectasis. 2. Endotracheal tube and nasogastric tube removed. Other lines and tubes are unchanged, including a l eft chest tube. No pneumothorax. Darryn Hester MD on August 31, 2017 at 5:23 Board Certified Radiologist. This report was verified electronically.
[2017-08-31] MEDS: PANTOPRAZOLE SOD 40 MG DELAYED RELEASE TAB PO SCH (05:43)
[2017-08-31] MEDS: AMIODARONE 200 MG TAB PO SCH ×3 (05:43→21:01)
[2017-08-31] MEDS: FINASTERIDE 5 MG TAB PO SCH (08:11)
[2017-08-31] MEDS: SODIUM CHLORIDE 0.9% FLUSH 10 ML FLUSH IV FLUSH SCH ×2 (08:12→21:01)
[2017-08-31] MEDS ORDERED: BISACODYL 10 MG SUPP RECTAL PRN (08:15)
[2017-08-31] MEDS ORDERED: GLUCAGON 1 MG/ML VIAL OTHER PRN (08:15)
[2017-08-31] MEDS ORDERED: SOD PHOSPHATE/SOD BIPHOSPHATE (ADULT) ENEMA 133ML RECTAL PRN (08:15)
[2017-08-31] MEDS ORDERED: DEXTROSE 50% IN WATER 50 ML VIAL(D50) IV PUSH PRN (08:15)
--- NOTE | 2017-08-31 08:22 | PD.CAR.PN ---
CVT Progress Note CVT: POD #: 1 Subjective/Hospital Course: 82 -year-old male patient of Dr. Talita Bonilla, Dr. Diez who presented to the emergency department August 28, secondary to chest pain and shortness of breath. He states that he has been having some symptoms off/on since June, however, seems to be worse after thanksgi when he and his both apparently had the flu. He had been complaining of some tightness in his chest, off and on, mainly when he is exerting himself. On the day of admission he was apparently out polishing the frey of his car and had a persistent dull steady pain that did not go away. He had recently been seen by Dr. Diez's office and had a stress test which he said was okay. His echocardiogram showed an ejection fraction of 56%, on July 02,mild mitral regurgitation, mild aortic insufficiency, mildly dilated left atrium. Upon arrival to the emergency room they did a complete work up which showed some elevated troponin' s of 0.86. His electrocardiogram showed normal sinus rhythm, had no acute ST changes. He underwent cardiac catheterization today by Dr. Noyola which showed a left main 10% stenosed, proximal left anterior descending 90, the distal left anterior descending at 70%, diagonal 10%. The circumflex 95%. The om 20%, the right coronary artery 40%. He also had some reinstent stenosis of 40% in the left anterior descending stents. Ruled in for NSTEMI PAST MEDICAL HISTORY: Coronary artery disease.( stent LAD in 2003) History of prostate cancer, CKD stabge 111 08/30 for surgery today 08/31/17 Doing well, no complaints Objective: Vital Signs Date Time Temp Pulse Resp B/P (MAP) Pulse Ox O2 Delivery O2 Flow Rate FiO2 08/31/17 08:10 97 Nasal Cannula 2.00 08/31/17 03:00 97.7 79 15 126/74 (91) 97 122/53 (76) 08/31/17 03:00 79 08/31/17 02:32 15 08/30/17 23:00 97.5 69 16 112/62 (79) 95 127/49 (75) 08/30/17 23:00 69 08/30/17 20:10 94 Nasal Cannula 4.00 08/30/17 19:00 73 08/30/17 19:00 97.9 73 16 109/65 (80) 98 126/57 (80) 08/30/17 18:19 105 08/30/17 18:06 95 Nasal Cannula 4.00 08/30/17 16:30 40 08/30/17 16:25 95 Nasal Cannula 2 08/30/17 16:00 40 08/30/17 16:00 97.6 65 12 129/77 (94) 95 136/70 (92) 08/30/17 16:00 65 08/30/17 15:14 99 40 08/30/17 13:30 97.6 08/30/17 13:30 70 08/30/17 13:30 50 08/30/17 13:30 97.6 70 12 92/53 (66) 95 111/49 (69) 08/30/17 13:00 94 50 Labs: Laboratory Tests Test 08/31/17 02:20 White Blood Count 15.7 TH/MM3 (4.0-11.0) Red Blood Count 3.20 MIL/MM3 (4.50-5.90) Hemoglobin 9.4 GM/DL (13.0-17.0) Hematocrit 28.6 % (39.0-51.0) Mean Corpuscular Volume 89.3 FL (80.0-100.0) Mean Corpuscular Hemoglobin 29.3 PG (27.0-34.0) Mean Corpuscular Hemoglobin Concent 32.8 % (32.0-36.0) Red Cell Distribution Width 14.2 % (11.6-17.2) Platelet Count 221 TH/MM3 (150-450) Mean Platelet Volume 8.9 FL (7.0-11.0) Blood Urea Nitrogen 36 MG/DL (7-18) Creatinine 1.65 MG/DL (0.60-1.30) Random Glucose 84 MG/DL (74-106) Calcium Level 7.9 MG/DL (8.5-10.1) Magnesium Level 2.9 MG/DL (1.5-2.5) Sodium Level 144 MEQ/L (136-145) Potassium Level 5.2 MEQ/L (3.5-5.1) Chloride Level 113 MEQ/L (98-107) Carbon Dioxide Level 24.8 MEQ/L (21.0-32.0) Anion Gap 6 MEQ/L (5-15) Estimat Glomerular Filtration Rate 40 ML/MIN (>89) Result Diagram: 08/31/1721908/31/17219 Imaging: Last 24 hours Impressions Chest X-Ray 08/31/17 0500 Signed Impressions: Service Date/Time: Thursday, August 31, 2017 04:09 - CONCLUSION: 1. No significant change mild bibasilar atelectasis. 2. Endotracheal tube and nasogastric tube removed. Other lines and tubes are unchanged, including a left chest tube. No pneumothorax. Darryn Hester MD Cardiovascular: RRR Telemetry: NSR Pulmonary: CTA GI/: NABS, NT Incision: dry and intact CT: 180ml/12hrs Plan: Transfer to stepdown Flomax for BPH Beta griffin Chest tube to water seal Up to chair/ambulate frequently gluten free diet Cont ASA, statin (1) Chronic kidney disease (2) NSTEMI (non-ST elevated myocardial infarction) (3) Chest pain (4) Coronary artery disease Problem Qualifiers (1) Chronic kidney disease: Qualified Codes: N18.3 - Chronic kidney disease, stage 3 (moderate) (2) Chest pain: Qualified Codes: R07.9 - Chest pain, unspecified Saira Xiogn MD Aug 31, 2017 08:22
[2017-08-31] MEDS ORDERED: PILL SPLITTER OTHER PRN (08:30)
[2017-08-31] MEDS: FERROUS SULFATE 325 MG (65 MG ELEMENTAL IRON) TAB PO SCH (08:37)
[2017-08-31] MEDS: MULTIVITAMIN-OPHTHALMIC 1 TAB PO SCH (08:39)
[2017-08-31] MEDS: ATORVASTATIN 80 MG TAB PO SCH (08:39)
[2017-08-31] MEDS: FOLIC ACID 1 MG TAB PO SCH (08:39)
[2017-08-31] MEDS: CHOLECALCIFEROL (VIT D3) 1000 UNIT TAB PO SCH (08:40)
[2017-08-31] MEDS: ASPIRIN 81 MG CHEW TAB PO SCH (08:40)
[2017-08-31] MEDS: MULTIVITAMINS/MINERALS THERAPEUTIC TAB PO SCH (08:42)
[2017-08-31] MEDS: TAMSULOSIN HCL 0.4 MG CAP PO SCH (08:42)
[2017-08-31] MEDS: METOPROLOL TARTRATE 25 MG TAB PO SCH ×2 (08:43→21:01)
[2017-08-31] MEDS: MAGNESIUM HYDROXIDE SUSP 30 ML CUP PO SCH (09:00)
[2017-08-31] MEDS: INSULIN ASPART SUPPLEMENTAL SCALE SQ SCH ×4 (10:22→21:10)
[2017-08-31] MEDS: oxyCODONE/ACETAMINOPHEN 5 MG/325 MG TAB PO PRN ×2 (13:47→20:37)
--- NOTE | 2017-08-31 15:43 | HHI.PR ---
Subjective Remarks Nursing denies any deterioration since last night. Patient is currently status post 4 vessel bypass. Suspect some outlet obstruction with BPH, started on Flomax. Patient himself says he feels okay. Objective Vital Signs Date Time Temp Pulse Resp B/P (MAP) Pulse Ox O2 Delivery O2 Flow Rate FiO2 08/31/17 11:00 73 08/31/17 11:00 97.6 73 16 129/75 (93) 92 08/31/17 08:10 97 Nasal Cannula 2.00 08/31/17 08:00 97.6 96 16 137/87 (104) 96 143/62 (89) 08/31/17 08:00 86 08/31/17 03:00 97.7 79 15 126/74 (91) 97 122/53 (76) 08/31/17 03:00 79 08/31/17 02:32 15 08/30/17 23:00 97.5 69 16 112/62 (79) 95 127/49 (75) 08/30/17 23:00 69 08/30/17 20:10 94 Nasal Cannula 4.00 08/30/17 19:00 73 08/30/17 19:00 97.9 73 16 109/65 (80) 98 126/57 (80) 08/30/17 18:19 105 08/30/17 18:06 95 Nasal Cannula 4.00 08/30/17 16:30 40 08/30/17 16:25 95 Nasal Cannula 2 08/30/17 16:00 40 08/30/17 16:00 97.6 65 12 129/77 (94) 95 136/70 (92) 08/30/17 16:00 65 I/O 08/30/17 08/30/17 08/30/17 08/31/17 08/31/17 08/31/17 06:59 14:59 22:59 06:59 14:59 22:59 Intake Total 240 ml 3650 ml 1695 ml 1400 ml 100 ml Output Total 150 ml 3900 ml 825 ml 605 ml Balance 90 ml -250 ml 870 ml 795 ml 100 ml Intake Oral 240 ml 200 ml 1200 ml IV Total 1465 ml 200 ml 100 ml Autotransfusion 1150 ml Tube Irrigant 30 ml Other 2500 ml Output Urine Total 150 ml 400 ml 665 ml 425 ml Gastric Drainage Total 0 ml Chest Tube Drainage Total 160 ml 180 ml Estimated Blood Loss 3500 ml # Bowel Movements 0 0 Result Diagram: 08/31/1721908/31/17219 Objective Remarks Patient currently off the ventilator Lung sounds are clear bilaterally Good color A/P Assessment and Plan Assessment and plan 82-year-old male admitted secondary to chest pain with elevated troponins. Findings overnight consistent with myocardial infarction. Unable to treat this with catheterization. s/p cabgx4. - s/p CABGx4 doing ok postop. Acute kidney injury -Avoiding nephrotoxins -Monitor renal function DVT prophylaxis -Heparin Transferring attending to make CT surg primary. Reconsult hospitalist if needed. Josiah Beard MD Aug 31, 2017 15:43
[2017-08-31] MEDS: SENNOSIDES 8.6 MG TAB PO SCH (21:01)
[2017-08-31] MEDS: DOCUSATE SODIUM 100 MG CAP PO SCH (21:01)
--- NOTE | 2017-08-31 21:58 | EKG ---
Date Performed: 08/31/2017 Time Performed: 15:27:14 PTAGE: 82 years EKG: Sinus rhythm Baseline artifact Normal ECG PREVIOUS TRACING : 08/29/2017 01.00 Compared to prior tracing no significant change DOCTOR: Bird oNyola Interpretating Date/Time 08/31/2017 21:57:10
[2017-09-01] VITALS (28 sets, daily range): BP systolic 87–138; BP diastolic 50–88; PULSE 67–119; RESP 16–20; TEMP 97.3–99; O2SAT 87–97
[2017-09-01] MEDS: INSULIN ASPART SUPPLEMENTAL SCALE SQ SCH ×4 (02:00→21:00)
[2017-09-01 05:21] LABS: AUTOMATED NEUTROPHIL # 13.8 TH/MM3 (1.8-7.7); BASOPHIL % 0.1 % (0.0-2.0); HEMATOCRIT 23.5 % (39.0-51.0); HEMOGLOBIN 7.8 GM/DL (13.0-17.0); LYMPH % 6.4 % (9.0-44.0); MEAN CELL VOLUME 89.4 FL (80.0-100.0); MEAN CORPUSCULAR HEMOGLOBIN 29.5 PG (27.0-34.0); MEAN CORPUSCULAR HGB CONC 33.1 % (32.0-36.0); MEAN PLATELET VOLUME 9.1 FL (7.0-11.0); MONO % 8.4 % (0.0-8.0); MONOCYTE # 1.4 TH/MM3 (0-0.9); NEUT % 85.1 % (16.0-70.0); PLATELET COUNT 182 TH/MM3 (150-450); RED BLOOD COUNT 2.63 MIL/MM3 (4.50-5.90); RED CELL DISTRIBUTION WIDTH 14.2 % (11.6-17.2); WHITE BLOOD COUNT 16.2 TH/MM3 (4.0-11.0)
[2017-09-01 05:57] LABS: BICARBONATE 23.4 MEQ/L (21.0-32.0); CALCIUM 7.2 MG/DL (8.5-10.1); CREATININE 2.17 MG/DL (0.60-1.30); MAGNESIUM 2.3 MG/DL (1.5-2.5)
[2017-09-01 06:16] LABS: CALCIUM-PROTEIN CORRECTED 8.1 MG/DL (8.5-10.1); TOTAL PROTEIN 5.5 GM/DL (6.4-8.2)
[2017-09-01] MEDS: PANTOPRAZOLE SOD 40 MG DELAYED RELEASE TAB PO SCH (06:18)
[2017-09-01] MEDS: AMIODARONE 200 MG TAB PO SCH ×3 (06:18→21:13)
[2017-09-01] MEDS: ASPIRIN 81 MG CHEW TAB PO SCH (09:00)
[2017-09-01] MEDS: FINASTERIDE 5 MG TAB PO SCH (09:00)
[2017-09-01] MEDS: METOPROLOL TARTRATE 25 MG TAB PO SCH ×2 (09:00→21:14)
[2017-09-01] MEDS: MULTIVITAMINS/MINERALS THERAPEUTIC TAB PO SCH (09:00)
[2017-09-01] MEDS: MULTIVITAMIN-OPHTHALMIC 1 TAB PO SCH (09:00)
[2017-09-01] MEDS: DOCUSATE SODIUM 100 MG CAP PO SCH ×2 (09:00→21:13)
[2017-09-01] MEDS: TAMSULOSIN HCL 0.4 MG CAP PO SCH (09:00)
[2017-09-01] MEDS: SODIUM CHLORIDE 0.9% FLUSH 10 ML FLUSH IV FLUSH SCH ×2 (09:00→21:13)
[2017-09-01] MEDS: ATORVASTATIN 80 MG TAB PO SCH (09:00)
[2017-09-01] MEDS: FOLIC ACID 1 MG TAB PO SCH (09:00)
[2017-09-01] MEDS: FERROUS SULFATE 325 MG (65 MG ELEMENTAL IRON) TAB PO SCH (09:00)
[2017-09-01] MEDS: CHOLECALCIFEROL (VIT D3) 1000 UNIT TAB PO SCH (09:00)
[2017-09-01] MEDS ORDERED: FUROSEMIDE 40 MG/4 ML VIAL IV PUSH ONE (09:45)
[2017-09-01] MEDS ORDERED: SODIUM CHLOR 0.9% 250 ML INJ 250 ML IV ONE (09:45)
--- NOTE | 2017-09-01 10:20 | PD.CARD.PN ---
Subjective Subjective Remarks Doing well Up to the chair No events overnight Objective Medications Current Medications Medications (Trade) Dose Ordered Sig/Anabel Route Start Time Stop Time Status Last Admin (Narcan Inj) 0.4 mg UNSCH PRN IV PUSH 08/28/17 16:00 (Vitamin D3) 1,000 units DAILY PO 08/29/17 09:00 08/31/17 08:40 (Ferrous Sulfate) 325 mg DAILY PO 08/29/17 09:00 08/31/17 08:37 (Proscar) 5 mg DAILY PO 08/29/17 09:00 08/31/17 08:11 (Folate) 1 mg DAILY PO 08/29/17 09:00 08/31/17 08:39 (Cozaar) 25 mg DAILY PO 08/29/17 09:00 Future Hold 08/29/17 08:11 (Ocuvite) 1 tab DAILY PO 08/29/17 09:00 08/31/17 08:39 Patient Own Medication PT OWN MED: MAGNES... DAILY PO 08/29/17 09:00 Future Hold Patient Own Medication PT OWN MED: ZINC GLUCON... DAILY PO 08/29/17 09:00 Future Hold (Atropine Inj) 0.5 mg UNSCH PRN IV PUSH 08/29/17 11:15 (Lipitor) 80 mg DAILY PO 08/30/17 09:00 08/31/17 08:39 Papaverine HCl 60 mg/Nitroglycerin 100 mcg/Diltiazem HCl 100 mg/Sodium Chloride 100 ml @ 0 mls/hr CLINICAL APPLICATION CONSULTANT IRRIGATION 08/29/17 14:30 09/05/17 14:29 08/30/17 09:30 Cefazolin Sodium 500 mg/Sodium Chloride 505 ml @ 0 mls/hr CLINICAL APPLICATION CONSULTANT IRRIGATION 08/29/17 14:30 09/05/17 14:29 08/30/17 12:25 Cefazolin Sodium/ Dextrose 50 ml @ 150 mls/hr CLINICAL APPLICATION CONSULTANT IV 08/29/17 14:30 09/05/17 14:29 (Hibiclens 4% Top Soln) 1 applic CLINICAL APPLICATION CONSULTANT TOPICAL 08/29/17 14:30 09/05/17 14:29 Sodium Chloride 500 ml @ 30 mls/hr [id number] PRN IV 08/30/17 02:15 09/02/17 02:14 (Betadine 5% Antisepsis Kit) 1 applic CLINICAL APPLICATION CONSULTANT PRN EACH NARE 08/30/17 02:15 09/02/17 02:14 (Chlorhexidine 2% Cloth) 3 pack CLINICAL APPLICATION CONSULTANT PRN TOPICAL 08/30/17 02:15 09/02/17 02:14 (NS Flush) 2 ml BID IV FLUSH 08/30/17 21:00 08/31/17 21:01 (NS Flush) 2 ml UNSCH PRN IV FLUSH 08/30/17 12:30 Albumin Human 250 ml @ 250 mls/hr UNSCH PRN IV 08/30/17 12:30 (Aspirin Chew) 81 mg DAILY PO 08/31/17 09:00 08/31/17 08:40 (Protonix) 40 mg DAILY@06 PO 08/31/17 06:00 09/01/17 06:18 (Cordarone) 400 mg Q8HR PO 08/30/17 14:00 09/01/17 06:18 (Tylenol) 650 mg Q4H PRN PO 08/30/17 13:30 (Tylenol Supp) 650 mg Q4H PRN RECTAL 08/30/17 13:30 (Percocet 5-325 Mg) 1 tab Q3H PRN PO 08/30/17 13:30 08/31/17 20:37 (Zofran Inj) 4 mg Q6H PRN IV PUSH 08/30/17 12:30 08/30/17 23:00 (Apresoline Inj) 10 mg Q4H PRN IV PUSH 08/30/17 12:30 (Lopressor Inj) 2.5 mg Q1H PRN IV PUSH 08/30/17 12:30 Potassium Chloride 100 ml @ 50 mls/hr UNSCH PRN IV 08/30/17 12:30 Potassium Chloride 100 ml @ 50 mls/hr UNSCH PRN IV 08/30/17 12:30 Potassium Chloride 100 ml @ 50 mls/hr UNSCH PRN IV 08/30/17 12:30 (KCl) 20 meq UNSCH PRN PO 08/30/17 12:30 (KCl) 40 meq UNSCH PRN PO 08/30/17 12:30 Magnesium Sulfate 2 gm/Sodium Chloride 104 ml @ 100 mls/hr UNSCH PRN IV 08/30/17 12:30 Magnesium Sulfate 2 gm/Sodium Chloride 104 ml @ 50 mls/hr UNSCH PRN IV 08/30/17 12:30 (Calcium Chloride Inj) 0.5 gm UNSCH PRN IV PUSH 08/30/17 12:30 Insulin Human Regular 100 units/ Sodium Chloride 100 ml @ 3 mls/hr TITRATE PRN IV 08/30/17 12:30 (Sodium Bicarbonate 8.4% Inj) 50 meq UNSCH PRN IV PUSH 08/30/17 12:30 (Sodium Bicarbonate 8.4% Inj) 100 meq UNSCH PRN IV PUSH 08/30/17 12:30 (Duoneb Neb) 1 ampule Q2HR NEB PRN NEB 08/30/17 12:30 08/31/17 14:13 (Racepinephrine 2.25% Neb) 0.5 ml UNSCH X1 PRN NEB 08/30/17 12:30 09/01/17 12:29 (Colace) 100 mg BID PO 08/31/17 21:00 08/31/17 21:01 (Theragran M Tab) 1 tab DAILY PO 08/31/17 09:00 08/31/17 08:42 (Milk Of Magnesia Liq) 30 ml DAILY PO 08/31/17 09:00 (Dulcolax Supp) 10 mg UNSCH PRN RECTAL 08/31/17 08:15 (Miralax) 17 gm DAILY PO 09/01/17 09:00 (Senokot) 8.6 mg HS PO 08/31/17 21:00 08/31/17 21:01 (Fleets Enema (Adult)) 118 ml UNSCH PRN RECTAL 08/31/17 08:15 (Lopressor) 12.5 mg BID PO 08/31/17 09:00 08/31/17 21:01 (NovoLOG SUPPLEMENTAL SCALE) 1 02,06,10,14,18,22 SQ 08/31/17 10:00 09/01/17 06:19 (D50w (Vial) Inj) 50 ml UNSCH PRN IV PUSH 08/31/17 08:15 (Glucagon Inj) 1 mg UNSCH PRN OTHER 08/31/17 08:15 (Flomax) 0.4 mg DAILY PO 08/31/17 09:00 08/31/17 08:42 (Pill Splitter) 1 ea UNSCH PRN OTHER 08/31/17 08:30 Sodium Chloride 250 ml @ 15 mls/hr ONCE ONCE IV 09/01/17 09:45 09/02/17 02:24 Vital Signs / I&O Vital Signs Date Time Temp Pulse Resp B/P (MAP) Pulse Ox O2 Delivery O2 Flow Rate FiO2 09/01/17 07:46 87 21 09/01/17 07:28 95 Room Air 09/01/17 07:28 98.0 103 20 138/88 (105) 95 09/01/17 07:28 103 09/01/17 06:00 88 09/01/17 05:00 91 09/01/17 04:00 90 09/01/17 03:00 98.1 90 20 116/60 (78) 92 09/01/17 03:00 92 Nasal Cannula 2.00 09/01/17 03:00 87 09/01/17 02:00 108 09/01/17 01:00 84 09/01/17 00:00 86 08/31/17 23:00 86 08/31/17 23:00 97.8 98 20 109/55 (73) 97 Arterial Line 08/31/17 21:10 18 08/31/17 20:40 97 Nasal Cannula 3.00 08/31/17 20:00 110 08/31/17 19:00 97.9 84 18 112/68 (83) 95 08/31/17 19:00 84 08/31/17 16:00 97.7 83 16 117/4 (41) 4 08/31/17 16:00 83 08/31/17 11:00 73 08/31/17 11:00 97.6 73 16 129/75 (93) 92 I/O 08/31/17 08/31/17 08/31/17 09/01/17 09/01/17 09/01/17 07:00 15:00 23:00 07:00 15:00 23:00 Intake Total 1400 ml 200 ml 1300 ml 580 ml Output Total 605 ml 500 ml 100 ml Balance 795 ml 200 ml 800 ml 480 ml Intake Oral 1200 ml 1200 ml 480 ml IV Total 200 ml 200 ml 100 ml 100 ml Output Urine Total 425 ml 380 ml Chest Tube Drainage Total 180 ml 120 ml 100 ml Bladder Scan Volume Amount 0 ml 0 ml # Voids 3 # Bowel Movements 0 0 Physical Exam GENERAL: NAD, AAOx3 SKIN: Warm and dry. HEAD: Atraumatic. Normocephalic. EYES: Pupils equal and round. No scleral icterus. No injection or drainage. ENT: No nasal bleeding or discharge. Mucous membranes pink and moist. NECK: Trachea midline. No JVD. CARDIOVASCULAR: Regular rate and rhythm. RESPIRATORY: No accessory muscle use. Diminished breath sounds bilaterally GASTROINTESTINAL: Abdomen soft, non-tender, nondistended. Hepatic and splenic margins not palpable. MUSCULOSKELETAL: Extremities without clubbing, cyanosis, or edema. No obvious deformities. NEUROLOGICAL: No focal deficits Laboratory Laboratory Tests Test 09/01/17 04:15 White Blood Count 16.2 TH/MM3 Red Blood Count 2.63 MIL/MM3 Hemoglobin 7.8 GM/DL Hematocrit 23.5 % Mean Corpuscular Volume 89.4 FL Mean Corpuscular Hemoglobin 29.5 PG Mean Corpuscular Hemoglobin Concent 33.1 % Red Cell Distribution Width 14.2 % Platelet Count 182 TH/MM3 Mean Platelet Volume 9.1 FL Neutrophils (%) (Auto) 85.1 % Lymphocytes (%) (Auto) 6.4 % Monocytes (%) (Auto) 8.4 % Eosinophils (%) (Auto) 0.0 % Basophils (%) (Auto) 0.1 % Neutrophils # (Auto) 13.8 TH/MM3 Lymphocytes # (Auto) 1.0 TH/MM3 Monocytes # (Auto) 1.4 TH/MM3 Eosinophils # (Auto) 0.0 TH/MM3 Basophils # (Auto) 0.0 TH/MM3 CBC Comment DIFF FINAL Differential Comment Blood Urea Nitrogen 44 MG/DL Creatinine 2.17 MG/DL Random Glucose 135 MG/DL Total Protein 5.5 GM/DL Calcium Level 7.2 MG/DL Magnesium Level 2.3 MG/DL Sodium Level 136 MEQ/L Potassium Level 5.1 MEQ/L Chloride Level 103 MEQ/L Carbon Dioxide Level 23.4 MEQ/L Anion Gap 10 MEQ/L Estimat Glomerular Filtration Rate 29 ML/MIN Protein Corrected Calcium 8.1 MG/DL Assessment and Plan Problem List: (1) Chronic kidney disease ICD Codes: N18.9 - Chronic kidney disease, unspecified (2) NSTEMI (non-ST elevated myocardial infarction) ICD Codes: I21.4 - Non-ST elevation (NSTEMI) myocardial infarction (3) Chest pain ICD Codes: R07.9 - Chest pain, unspecified Status: Acute (4) Coronary artery disease ICD Codes: I25.10 - Atherosclerotic heart disease of [place] coronary artery without angina pectoris (5) S/P CABG (coronary artery bypass graft) ICD Codes: Z95.1 - Presence of aortocoronary bypass graft Assessment and Plan 1) NSTEMI/MVCAD s/p CABGx4 POD #2 FELDMAN to LAD SVG to OM2 SVG to Ramus SVG to D1 2) Chest tubes still in place 3) Plan for 1 unit PRBC, and diuresis 4) ASA/BB/Statin/Amiodarone/ARB Problem Qualifiers (1) Chronic kidney disease: Qualified Codes: N18.3 - Chronic kidney disease, stage 3 (moderate) (2) Chest pain: Qualified Codes: R07.9 - Chest pain, unspecified Bird Noyola DO Sep 01, 2017 10:20
--- NOTE | 2017-09-01 10:24 | PD.CAR.PN ---
CVT Progress Note CVT: POD #: 2 Subjective/Hospital Course: 82 -year-old male patient of Dr. Talita Bonilla, Dr. Diez who presented to the emergency department August 28, secondary to chest pain and shortness of breath. He states that he has been having some symptoms off/on since June, however, seems to be worse after thanksgi when he and his both apparently had the flu. He had been complaining of some tightness in his chest, off and on, mainly when he is exerting himself. On the day of admission he was apparently out polishing the frey of his car and had a persistent dull steady pain that did not go away. He had recently been seen by Dr. Diez's office and had a stress test which he said was okay. His echocardiogram showed an ejection fraction of 56%, on July 02,mild mitral regurgitation, mild aortic insufficiency, mildly dilated left atrium. Upon arrival to the emergency room they did a complete work up which showed some elevated troponin' s of 0.86. His electrocardiogram showed normal sinus rhythm, had no acute ST changes. He underwent cardiac catheterization today by Dr. Noyola which showed a left main 10% stenosed, proximal left anterior descending 90, the distal left anterior descending at 70%, diagonal 10%. The circumflex 95%. The om 20%, the right coronary artery 40%. He also had some reinstent stenosis of 40% in the left anterior descending stents. Ruled in for NSTEMI PAST MEDICAL HISTORY: Coronary artery disease.( stent LAD in 2003) History of prostate cancer, CKD stabge 111 08/30 for surgery today 08/31/17 Doing well, no complaints 09/01/17 No complaints, progressing Objective: Vital Signs Date Time Temp Pulse Resp B/P (MAP) Pulse Ox O2 Delivery O2 Flow Rate FiO2 09/01/17 07:46 87 21 09/01/17 07:28 95 Room Air 09/01/17 07:28 98.0 103 20 138/88 (105) 95 09/01/17 07:28 103 09/01/17 06:00 88 09/01/17 05:00 91 09/01/17 04:00 90 09/01/17 03:00 98.1 90 20 116/60 (78) 92 09/01/17 03:00 92 Nasal Cannula 2.00 09/01/17 03:00 87 09/01/17 02:00 108 09/01/17 01:00 84 09/01/17 00:00 86 08/31/17 23:00 86 08/31/17 23:00 97.8 98 20 109/55 (73) 97 Arterial Line 08/31/17 21:10 18 08/31/17 20:40 97 Nasal Cannula 3.00 08/31/17 20:00 110 08/31/17 19:00 97.9 84 18 112/68 (83) 95 08/31/17 19:00 84 08/31/17 16:00 97.7 83 16 117/4 (41) 4 08/31/17 16:00 83 08/31/17 11:00 73 08/31/17 11:00 97.6 73 16 129/75 (93) 92 Labs: Laboratory Tests Test 09/01/17 04:15 White Blood Count 16.2 TH/MM3 (4.0-11.0) Red Blood Count 2.63 MIL/MM3 (4.50-5.90) Hemoglobin 7.8 GM/DL (13.0-17.0) Hematocrit 23.5 % (39.0-51.0) Mean Corpuscular Volume 89.4 FL (80.0-100.0) Mean Corpuscular Hemoglobin 29.5 PG (27.0-34.0) Mean Corpuscular Hemoglobin Concent 33.1 % (32.0-36.0) Red Cell Distribution Width 14.2 % (11.6-17.2) Platelet Count 182 TH/MM3 (150-450) Mean Platelet Volume 9.1 FL (7.0-11.0) Neutrophils (%) (Auto) 85.1 % (16.0-70.0) Lymphocytes (%) (Auto) 6.4 % (9.0-44.0) Monocytes (%) (Auto) 8.4 % (0.0-8.0) Eosinophils (%) (Auto) 0.0 % (0.0-4.0) Basophils (%) (Auto) 0.1 % (0.0-2.0) Neutrophils # (Auto) 13.8 TH/MM3 (1.8-7.7) Lymphocytes # (Auto) 1.0 TH/MM3 (1.0-4.8) Monocytes # (Auto) 1.4 TH/MM3 (0-0.9) Eosinophils # (Auto) 0.0 TH/MM3 (0-0.4) Basophils # (Auto) 0.0 TH/MM3 (0-0.2) CBC Comment DIFF FINAL Differential Comment Blood Urea Nitrogen 44 MG/DL (7-18) Creatinine 2.17 MG/DL (0.60-1.30) Random Glucose 135 MG/DL (74-106) Total Protein 5.5 GM/DL (6.4-8.2) Calcium Level 7.2 MG/DL (8.5-10.1) Magnesium Level 2.3 MG/DL (1.5-2.5) Sodium Level 136 MEQ/L (136-145) Potassium Level 5.1 MEQ/L (3.5-5.1) Chloride Level 103 MEQ/L (98-107) Carbon Dioxide Level 23.4 MEQ/L (21.0-32.0) Anion Gap 10 MEQ/L (5-15) Estimat Glomerular Filtration Rate 29 ML/MIN (>89) Protein Corrected Calcium 8.1 MG/DL (8.5-10.1) Result Diagram: 09/01/17 0415 09/01/17 0415 Cardiovascular: RRR Telemetry: NSR Pulmonary: CTA GI/: NABS, NT Incision: dry and intact CT: 100ml/12hrs Plan: Remove chest tubes Transfuse one unit pRBC Diurese Encourage ambulation No ACEI due to increased creatinine (1) Chronic kidney disease (2) NSTEMI (non-ST elevated myocardial infarction) (3) Chest pain (4) Coronary artery disease (5) S/P CABG (coronary artery bypass graft) Problem Qualifiers (1) Chronic kidney disease: Qualified Codes: N18.3 - Chronic kidney disease, stage 3 (moderate) (2) Chest pain: Qualified Codes: R07.9 - Chest pain, unspecified Saira Xiong MD Sep 01, 2017 10:24
[2017-09-01] MEDS: POLYETHYLENE GLYCOL 17 GM PKG PO SCH (16:35)
[2017-09-01] MEDS: MAGNESIUM HYDROXIDE SUSP 30 ML CUP PO SCH (16:37)
[2017-09-01] MEDS: SENNOSIDES 8.6 MG TAB PO SCH (21:14)
[2017-09-02] VITALS (27 sets, daily range): BP systolic 105–151; BP diastolic 53–70; PULSE 72–130; RESP 16–20; TEMP 97.5–98.4; O2SAT 94–98
--- NOTE | 2017-09-02 05:01 | RADRPT ---
EXAM DATE/TIME: 09/02/2017 03:23 [facility] COMPARISON: CHEST SINGLE AP, August 31, 2017, 4:09. INDICATIONS : Shortness of breath, possible pulmonary disease. MEDICAL HISTORY : Carcinoma, prostatic. SURGICAL HISTORY : Coronary artery stent. CABG. ENCOUNTER: Subsequent ACUITY: 4 - 6 days PAIN SCORE: 0/10 LOCATION: Bilateral chest FINDINGS: A single portable frontal view of the chest shows interval removal of the left thoracostomy tube. No pneumothorax seen. Bibasilar linear atelectasis versus scarring. Right sided central line. Median mal rnotomy wires. Heart is normal in size. No effusions. CONCLUSION: 1. No pneumothorax following left chest tube removal. 2. Bibasilar atelectasis versus scarring. Brandyn Montes De Oca Jr., MD on September 02, 2017 at 4:59 Board Certified Radiologist. This report was verified electronically.
[2017-09-02 05:43] LABS: HEMATOCRIT 25.2 % (39.0-51.0); HEMOGLOBIN 8.6 GM/DL (13.0-17.0); MEAN CELL VOLUME 89.1 FL (80.0-100.0); MEAN CORPUSCULAR HEMOGLOBIN 30.4 PG (27.0-34.0); MEAN CORPUSCULAR HGB CONC 34.1 % (32.0-36.0); PLATELET COUNT 174 TH/MM3 (150-450); RED BLOOD COUNT 2.83 MIL/MM3 (4.50-5.90); RED CELL DISTRIBUTION WIDTH 14.3 % (11.6-17.2)
[2017-09-02] MEDS: AMIODARONE 200 MG TAB PO SCH ×3 (06:03→18:34)
[2017-09-02] MEDS: oxyCODONE/ACETAMINOPHEN 5 MG/325 MG TAB PO PRN (06:03)
[2017-09-02] MEDS: PANTOPRAZOLE SOD 40 MG DELAYED RELEASE TAB PO SCH (06:03)
[2017-09-02 06:11] LABS: BICARBONATE 26.5 MEQ/L (21.0-32.0); CALCIUM 7.2 MG/DL (8.5-10.1); CREATININE 2.16 MG/DL (0.60-1.30)
[2017-09-02 06:24] LABS: CALCIUM-PROTEIN CORRECTED 7.9 MG/DL (8.5-10.1); TOTAL PROTEIN 5.8 GM/DL (6.4-8.2)
[2017-09-02] MEDS: INSULIN ASPART SUPPLEMENTAL SCALE SQ SCH ×4 (08:00→21:00)
--- NOTE | 2017-09-02 08:33 | PD.CAR.PN ---
CVT Progress Note CVT: POD #: 3 Subjective/Hospital Course: 82 -year-old male patient of Dr. Talita Bonilla, Dr. Diez who presented to the emergency department August 28, secondary to chest pain and shortness of breath. He states that he has been having some symptoms off/on since June, however, seems to be worse after thanksgi when he and his both apparently had the flu. He had been complaining of some tightness in his chest, off and on, mainly when he is exerting himself. On the day of admission he was apparently out polishing the frey of his car and had a persistent dull steady pain that did not go away. He had recently been seen by Dr. Diez's office and had a stress test which he said was okay. His echocardiogram showed an ejection fraction of 56%, on July 02,mild mitral regurgitation, mild aortic insufficiency, mildly dilated left atrium. Upon arrival to the emergency room they did a complete work up which showed some elevated troponin' s of 0.86. His electrocardiogram showed normal sinus rhythm, had no acute ST changes. He underwent cardiac catheterization today by Dr. Noyola which showed a left main 10% stenosed, proximal left anterior descending 90, the distal left anterior descending at 70%, diagonal 10%. The circumflex 95%. The om 20%, the right coronary artery 40%. He also had some reinstent stenosis of 40% in the left anterior descending stents. Ruled in for NSTEMI PAST MEDICAL HISTORY: Coronary artery disease.( stent LAD in 2003) History of prostate cancer, CKD stabge 111 08/30 for surgery today 08/31/17 Doing well, no complaints 09/01/17 No complaints, progressing 09/02/17 No complaints, doing well Objective: Vital Signs Date Time Temp Pulse Resp B/P (MAP) Pulse Ox O2 Delivery O2 Flow Rate FiO2 09/02/17 07:58 97.8 88 16 120/59 (79) 95 09/02/17 07:00 72 09/02/17 06:00 75 09/02/17 05:00 85 09/02/17 04:00 74 09/02/17 03:00 98.0 92 20 126/69 (88) 94 09/02/17 03:00 81 09/02/17 03:00 94 Nasal Cannula 2.00 09/02/17 02:00 90 09/02/17 01:00 78 09/02/17 00:00 86 09/01/17 23:00 82 09/01/17 23:00 99.0 92 20 109/61 (77) 94 09/01/17 23:00 94 Nasal Cannula 2.00 09/01/17 22:00 82 09/01/17 21:00 104 09/01/17 20:00 106 09/01/17 19:00 98.2 100 20 113/57 (75) 92 09/01/17 19:00 92 Nasal Cannula 2.00 09/01/17 19:00 108 09/01/17 18:00 103 09/01/17 17:00 74 09/01/17 16:00 79 09/01/17 15:45 67 09/01/17 15:45 67 Room Air 09/01/17 15:45 98.0 67 18 97/55 (69) 97 09/01/17 15:00 71 09/01/17 14:22 98.1 78 16 87/50 (62) 95 09/01/17 14:21 97.3 89 18 96/53 96 09/01/17 14:00 71 09/01/17 13:00 72 09/01/17 11:50 119 09/01/17 11:50 97.7 119 18 115/77 (90) 95 09/01/17 11:50 95 Room Air 09/01/17 11:00 82 09/01/17 10:00 88 09/01/17 09:00 76 Labs: Laboratory Tests Test 09/02/17 05:20 White Blood Count 10.0 TH/MM3 (4.0-11.0) Red Blood Count 2.83 MIL/MM3 (4.50-5.90) Hemoglobin 8.6 GM/DL (13.0-17.0) Hematocrit 25.2 % (39.0-51.0) Mean Corpuscular Volume 89.1 FL (80.0-100.0) Mean Corpuscular Hemoglobin 30.4 PG (27.0-34.0) Mean Corpuscular Hemoglobin Concent 34.1 % (32.0-36.0) Red Cell Distribution Width 14.3 % (11.6-17.2) Platelet Count 174 TH/MM3 (150-450) Mean Platelet Volume 9.0 FL (7.0-11.0) Blood Urea Nitrogen 44 MG/DL (7-18) Creatinine 2.16 MG/DL (0.60-1.30) Random Glucose 101 MG/DL (74-106) Total Protein 5.8 GM/DL (6.4-8.2) Calcium Level 7.2 MG/DL (8.5-10.1) Sodium Level 137 MEQ/L (136-145) Potassium Level 4.6 MEQ/L (3.5-5.1) Chloride Level 105 MEQ/L (98-107) Carbon Dioxide Level 26.5 MEQ/L (21.0-32.0) Anion Gap 6 MEQ/L (5-15) Estimat Glomerular Filtration Rate 29 ML/MIN (>89) Protein Corrected Calcium 7.9 MG/DL (8.5-10.1) Result Diagram: 09/02/17 0520 09/02/17 0520 Imaging: Last 24 hours Impressions Chest X-Ray 09/02/17 0600 Signed Impressions: Service Date/Time: Saturday, September 02, 2017 03:23 - CONCLUSION: 1. No pneumothorax following left chest tube removal. 2. Bibasilar atelectasis versus scarring. Brandyn Montes De Oca Jr., MD Cardiovascular: RRR Telemetry: NSR Pulmonary: CTA GI/: NABS, NT Incision: dry and intact Plan: Renal function stable Stim BM Encourage ambulation Plan DC in AM (1) Chronic kidney disease (2) NSTEMI (non-ST elevated myocardial infarction) (3) Chest pain (4) Coronary artery disease (5) S/P CABG (coronary artery bypass graft) Problem Qualifiers (1) Chronic kidney disease: Qualified Codes: N18.3 - Chronic kidney disease, stage 3 (moderate) (2) Chest pain: Qualified Codes: R07.9 - Chest pain, unspecified Saira Xiong MD Sep 02, 2017 08:33
--- NOTE | 2017-09-02 09:16 | RSPPFT ---
DATE OF PROCEDURE: 08/29/17 COMMENTS: The forced vital capacity, FEV1, FEV1/FVC ratio and FEF 25-75 are all normal. IMPRESSION: This is a normal spirometry.
[2017-09-02] MEDS: ATORVASTATIN 80 MG TAB PO SCH (09:41)
[2017-09-02] MEDS: FERROUS SULFATE 325 MG (65 MG ELEMENTAL IRON) TAB PO SCH (09:41)
[2017-09-02] MEDS: FINASTERIDE 5 MG TAB PO SCH (09:41)
[2017-09-02] MEDS: ASPIRIN 81 MG CHEW TAB PO SCH (09:42)
[2017-09-02] MEDS: FOLIC ACID 1 MG TAB PO SCH (09:42)
[2017-09-02] MEDS: CHOLECALCIFEROL (VIT D3) 1000 UNIT TAB PO SCH (09:42)
[2017-09-02] MEDS: DOCUSATE SODIUM 100 MG CAP PO SCH ×2 (09:42→21:00)
[2017-09-02] MEDS: MULTIVITAMIN-OPHTHALMIC 1 TAB PO SCH (09:49)
[2017-09-02] MEDS: POLYETHYLENE GLYCOL 17 GM PKG PO SCH (09:49)
[2017-09-02] MEDS: METOPROLOL TARTRATE 25 MG TAB PO SCH ×2 (09:49→18:31)
[2017-09-02] MEDS: MULTIVITAMINS/MINERALS THERAPEUTIC TAB PO SCH (09:49)
[2017-09-02] MEDS: MAGNESIUM HYDROXIDE SUSP 30 ML CUP PO SCH (09:49)
[2017-09-02] MEDS: TAMSULOSIN HCL 0.4 MG CAP PO SCH (09:55)
[2017-09-02] MEDS: SODIUM CHLORIDE 0.9% FLUSH 10 ML FLUSH IV FLUSH SCH ×2 (09:55→21:11)
--- NOTE | 2017-09-02 12:28 | PD.CARD.PN ---
Subjective Subjective Remarks Doing well Up to the chair and ambulating Chest tubes removed No events overnight Objective Medications Current Medications Medications (Trade) Dose Ordered Sig/Anabel Route Start Time Stop Time Status Last Admin (Narcan Inj) 0.4 mg UNSCH PRN IV PUSH 08/28/17 16:00 (Vitamin D3) 1,000 units DAILY PO 08/29/17 09:00 09/02/17 09:42 (Ferrous Sulfate) 325 mg DAILY PO 08/29/17 09:00 09/02/17 09:41 (Proscar) 5 mg DAILY PO 08/29/17 09:00 09/02/17 09:41 (Folate) 1 mg DAILY PO 08/29/17 09:00 09/02/17 09:42 (Cozaar) 25 mg DAILY PO 08/29/17 09:00 Future Hold 08/29/17 08:11 (Ocuvite) 1 tab DAILY PO 08/29/17 09:00 09/02/17 09:49 Patient Own Medication PT OWN MED: MAGNES... DAILY PO 08/29/17 09:00 Future Hold Patient Own Medication PT OWN MED: ZINC GLUCON... DAILY PO 08/29/17 09:00 Future Hold (Atropine Inj) 0.5 mg UNSCH PRN IV PUSH 08/29/17 11:15 (Lipitor) 80 mg DAILY PO 08/30/17 09:00 09/02/17 09:41 Papaverine HCl 60 mg/Nitroglycerin 100 mcg/Diltiazem HCl 100 mg/Sodium Chloride 100 ml @ 0 mls/hr [employer]SC[employer] IRRIGATION 08/29/17 14:30 09/05/17 14:29 08/30/17 09:30 Cefazolin Sodium 500 mg/Sodium Chloride 505 ml @ 0 mls/hr [employer] IRRIGATION 08/29/17 14:30 09/05/17 14:29 08/30/17 12:25 Cefazolin Sodium/ Dextrose 50 ml @ 150 mls/hr [employer] IV 08/29/17 14:30 09/05/17 14:29 (Hibiclens 4% Top Soln) 1 applic [employer]SC[employer] TOPICAL 08/29/17 14:30 09/05/17 14:29 (NS Flush) 2 ml BID IV FLUSH 08/30/17 21:00 09/02/17 09:55 (NS Flush) 2 ml UNSCH PRN IV FLUSH 08/30/17 12:30 Albumin Human 250 ml @ 250 mls/hr UNSCH PRN IV 08/30/17 12:30 (Aspirin Chew) 81 mg DAILY PO 08/31/17 09:00 09/02/17 09:42 (Protonix) 40 mg DAILY@06 PO 08/31/17 06:00 09/02/17 06:03 (Cordarone) 400 mg Q8HR PO 08/30/17 14:00 09/02/17 06:03 (Tylenol) 650 mg Q4H PRN PO 08/30/17 13:30 (Tylenol Supp) 650 mg Q4H PRN RECTAL 08/30/17 13:30 (Percocet 5-325 Mg) 1 tab Q3H PRN PO 08/30/17 13:30 09/02/17 06:03 (Zofran Inj) 4 mg Q6H PRN IV PUSH 08/30/17 12:30 08/30/17 23:00 (Apresoline Inj) 10 mg Q4H PRN IV PUSH 08/30/17 12:30 (Lopressor Inj) 2.5 mg Q1H PRN IV PUSH 08/30/17 12:30 Potassium Chloride 100 ml @ 50 mls/hr UNSCH PRN IV 08/30/17 12:30 Potassium Chloride 100 ml @ 50 mls/hr UNSCH PRN IV 08/30/17 12:30 Potassium Chloride 100 ml @ 50 mls/hr UNSCH PRN IV 08/30/17 12:30 (KCl) 20 meq UNSCH PRN PO 08/30/17 12:30 (KCl) 40 meq UNSCH PRN PO 08/30/17 12:30 Magnesium Sulfate 2 gm/Sodium Chloride 104 ml @ 100 mls/hr UNSCH PRN IV 08/30/17 12:30 Magnesium Sulfate 2 gm/Sodium Chloride 104 ml @ 50 mls/hr UNSCH PRN IV 08/30/17 12:30 (Calcium Chloride Inj) 0.5 gm UNSCH PRN IV PUSH 08/30/17 12:30 Insulin Human Regular 100 units/ Sodium Chloride 100 ml @ 3 mls/hr TITRATE PRN IV 08/30/17 12:30 (Sodium Bicarbonate 8.4% Inj) 50 meq UNSCH PRN IV PUSH 08/30/17 12:30 (Sodium Bicarbonate 8.4% Inj) 100 meq UNSCH PRN IV PUSH 08/30/17 12:30 (Duoneb Neb) 1 ampule Q2HR NEB PRN NEB 08/30/17 12:30 08/31/17 14:13 (Colace) 100 mg BID PO 08/31/17 21:00 09/02/17 09:42 (Theragran M Tab) 1 tab DAILY PO 08/31/17 09:00 09/02/17 09:49 (Milk Of Magnesia Liq) 30 ml DAILY PO 08/31/17 09:00 09/02/17 09:49 (Dulcolax Supp) 10 mg UNSCH PRN RECTAL 08/31/17 08:15 (Miralax) 17 gm DAILY PO 09/01/17 09:00 09/02/17 09:49 (Senokot) 8.6 mg HS PO 08/31/17 21:00 09/01/17 21:14 (Fleets Enema (Adult)) 118 ml UNSCH PRN RECTAL 08/31/17 08:15 (Lopressor) 12.5 mg BID PO 08/31/17 09:00 09/02/17 09:49 (D50w (Vial) Inj) 50 ml UNSCH PRN IV PUSH 08/31/17 08:15 (Glucagon Inj) 1 mg UNSCH PRN OTHER 08/31/17 08:15 (Flomax) 0.4 mg DAILY PO 08/31/17 09:00 09/02/17 09:55 (Pill Splitter) 1 ea UNSCH PRN OTHER 08/31/17 08:30 (NovoLOG SUPPLEMENTAL SCALE) 1 ACHS SLIDING SCALE SQ 09/01/17 17:00 09/01/17 21:00 Vital Signs / I&O Vital Signs Date Time Temp Pulse Resp B/P (MAP) Pulse Ox O2 Delivery O2 Flow Rate FiO2 09/02/17 11:30 96 Room Air 09/02/17 11:27 97.5 72 18 105/53 (70) 96 09/02/17 10:00 90 09/02/17 09:00 95 Room Air 09/02/17 09:00 95 09/02/17 08:00 88 09/02/17 07:58 97.8 88 16 120/59 (79) 95 09/02/17 07:00 72 09/02/17 06:00 75 09/02/17 05:00 85 09/02/17 04:00 74 09/02/17 03:00 98.0 92 20 126/69 (88) 94 09/02/17 03:00 81 09/02/17 03:00 94 Nasal Cannula 2.00 09/02/17 02:00 90 09/02/17 01:00 78 09/02/17 00:00 86 09/01/17 23:00 82 09/01/17 23:00 99.0 92 20 109/61 (77) 94 09/01/17 23:00 94 Nasal Cannula 2.00 09/01/17 22:00 82 09/01/17 21:00 104 09/01/17 20:00 106 09/01/17 19:00 98.2 100 20 113/57 (75) 92 09/01/17 19:00 92 Nasal Cannula 2.00 09/01/17 19:00 108 09/01/17 18:00 103 09/01/17 17:00 74 09/01/17 16:00 79 09/01/17 15:45 67 09/01/17 15:45 67 Room Air 09/01/17 15:45 98.0 67 18 97/55 (69) 97 09/01/17 15:00 71 09/01/17 14:22 98.1 78 16 87/50 (62) 95 09/01/17 14:21 97.3 89 18 96/53 96 09/01/17 14:00 71 09/01/17 13:00 72 I/O 09/01/17 09/01/17 09/01/17 09/02/17 09/02/17 09/02/17 07:00 15:00 23:00 07:00 15:00 23:00 Intake Total 580 ml 10 ml 1429 ml 480 ml Output Total 100 ml 330 ml 400 ml Balance 480 ml 10 ml 1099 ml 80 ml Intake Oral 480 ml 850 ml 480 ml IV Total 100 ml 250 ml Packed Cells 329 ml Blood Product IV Normal Saline Flush 10 ml Output Urine Total 300 ml 400 ml Chest Tube Drainage Total 100 ml 30 ml # Voids 3 3 5 # Bowel Movements 0 Physical Exam GENERAL: NAD, AAOx3 SKIN: Warm and dry. HEAD: Atraumatic. Normocephalic. EYES: Pupils equal and round. No scleral icterus. No injection or drainage. ENT: No nasal bleeding or discharge. Mucous membranes pink and moist. NECK: Trachea midline. No JVD. CARDIOVASCULAR: Regular rate and rhythm. RESPIRATORY: No accessory muscle use. Diminished breath sounds bilaterally GASTROINTESTINAL: Abdomen soft, non-tender, nondistended. Hepatic and splenic margins not palpable. MUSCULOSKELETAL: Extremities without clubbing, cyanosis, or edema. No obvious deformities. NEUROLOGICAL: No focal deficits Laboratory Laboratory Tests Test 09/02/17 05:20 White Blood Count 10.0 TH/MM3 Red Blood Count 2.83 MIL/MM3 Hemoglobin 8.6 GM/DL Hematocrit 25.2 % Mean Corpuscular Volume 89.1 FL Mean Corpuscular Hemoglobin 30.4 PG Mean Corpuscular Hemoglobin Concent 34.1 % Red Cell Distribution Width 14.3 % Platelet Count 174 TH/MM3 Mean Platelet Volume 9.0 FL Blood Urea Nitrogen 44 MG/DL Creatinine 2.16 MG/DL Random Glucose 101 MG/DL Total Protein 5.8 GM/DL Calcium Level 7.2 MG/DL Sodium Level 137 MEQ/L Potassium Level 4.6 MEQ/L Chloride Level 105 MEQ/L Carbon Dioxide Level 26.5 MEQ/L Anion Gap 6 MEQ/L Estimat Glomerular Filtration Rate 29 ML/MIN Protein Corrected Calcium 7.9 MG/DL Imaging Last 24 hours Impressions Chest X-Ray 09/02/17 0600 Signed Impressions: Service Date/Time: Saturday, September 02, 2017 03:23 - CONCLUSION: 1. No pneumothorax following left chest tube removal. 2. Bibasilar atelectasis versus scarring. Brandyn Montes De Oca Jr., MD Assessment and Plan Problem List: (1) Chronic kidney disease ICD Codes: N18.9 - Chronic kidney disease, unspecified (2) NSTEMI (non-ST elevated myocardial infarction) ICD Codes: I21.4 - Non-ST elevation (NSTEMI) myocardial infarction (3) Chest pain ICD Codes: R07.9 - Chest pain, unspecified Status: Acute (4) Coronary artery disease ICD Codes: I25.10 - Atherosclerotic heart disease of [place] coronary artery without angina pectoris (5) S/P CABG (coronary artery bypass graft) ICD Codes: Z95.1 - Presence of aortocoronary bypass graft Assessment and Plan 1) NSTEMI/MVCAD s/p CABGx4 POD #3 FELDMAN to LAD SVG to OM2 SVG to Ramus SVG to D1 2) Chest tubes out 3) s/p 1 unit PRBC 4) ASA/BB/Statin/Amiodarone/ARB 5) Possible discharge tomorrow Problem Qualifiers (1) Chronic kidney disease: Qualified Codes: N18.3 - Chronic kidney disease, stage 3 (moderate) (2) Chest pain: Qualified Codes: R07.9 - Chest pain, unspecified Bird Noyola DO Sep 02, 2017 12:28
[2017-09-02] MEDS ORDERED: METOPROLOL TARTRATE 25 MG TAB PO SCH (18:31)
[2017-09-02] MEDS: SENNOSIDES 8.6 MG TAB PO SCH (21:00)
[2017-09-02] MEDS: MAGNESIUM SULFATE 1 GM PREMIX 100 ML IV SCH ×2 (21:11→22:20)
[2017-09-03] VITALS (17 sets, daily range): BP systolic 115–159; BP diastolic 66–74; PULSE 72–108; RESP 16–19; TEMP 97.5–97.9; O2SAT 95–99
[2017-09-03 04:29] LABS: HEMATOCRIT 26.6 % (39.0-51.0); MEAN CELL VOLUME 88.7 FL (80.0-100.0); MEAN CORPUSCULAR HEMOGLOBIN 29.9 PG (27.0-34.0); MEAN CORPUSCULAR HGB CONC 33.7 % (32.0-36.0); PLATELET COUNT 190 TH/MM3 (150-450)
[2017-09-03] MEDS: AMIODARONE 200 MG TAB PO SCH ×2 (06:26→14:26)
[2017-09-03] MEDS: PANTOPRAZOLE SOD 40 MG DELAYED RELEASE TAB PO SCH (06:26)
[2017-09-03] MEDS: INSULIN ASPART SUPPLEMENTAL SCALE SQ SCH ×2 (08:00→12:00)
[2017-09-03] MEDS: MAGNESIUM HYDROXIDE SUSP 30 ML CUP PO SCH (09:00)
[2017-09-03] MEDS ORDERED: METOPROLOL TARTRATE 25 MG TAB PO SCH (09:00)
[2017-09-03] MEDS: DOCUSATE SODIUM 100 MG CAP PO SCH ×2 (09:00→09:10)
[2017-09-03] MEDS ORDERED: METOPROLOL TARTRATE 25 MG TAB PO ONE (09:00)
[2017-09-03] MEDS: POLYETHYLENE GLYCOL 17 GM PKG PO SCH (09:00)
[2017-09-03] MEDS: MULTIVITAMIN-OPHTHALMIC 1 TAB PO SCH (09:10)
[2017-09-03] MEDS: CHOLECALCIFEROL (VIT D3) 1000 UNIT TAB PO SCH (09:10)
[2017-09-03] MEDS: SODIUM CHLORIDE 0.9% FLUSH 10 ML FLUSH IV FLUSH SCH (09:10)
[2017-09-03] MEDS: FINASTERIDE 5 MG TAB PO SCH (09:11)
[2017-09-03] MEDS: MULTIVITAMINS/MINERALS THERAPEUTIC TAB PO SCH (09:11)
[2017-09-03] MEDS: TAMSULOSIN HCL 0.4 MG CAP PO SCH (09:11)
[2017-09-03] MEDS: ASPIRIN 81 MG CHEW TAB PO SCH (09:12)
[2017-09-03] MEDS: FOLIC ACID 1 MG TAB PO SCH (09:12)
[2017-09-03] MEDS: FERROUS SULFATE 325 MG (65 MG ELEMENTAL IRON) TAB PO SCH (09:12)
[2017-09-03] MEDS: ATORVASTATIN 80 MG TAB PO SCH (09:12)
[2017-09-03] MEDS ORDERED: AMIO200T PO (13:32)
[2017-09-03] MEDS ORDERED: OXYC1TAB63 PO (13:32)
[2017-09-03] MEDS ORDERED: DOCU1CAP39 PO (13:32)
--- NOTE | 2017-09-03 13:51 | HHI.DS ---
Discharge Summary Admission Date Aug 29, 2017 at 11:06 Discharge Date: Sep 03, 2017 Admitting Diagnosis chest pain, elevated troponin (1) Coronary artery disease Diagnosis: Principal ICD Codes: I25.10 - Atherosclerotic heart disease of [place] coronary artery without angina pectoris (2) Chest pain Diagnosis: Principal ICD Codes: R07.9 - Chest pain, unspecified Status: Acute (3) Elevated troponin Diagnosis: Principal ICD Codes: R74.8 - Abnormal levels of other serum enzymes Status: Acute (4) NSTEMI (non-ST elevated myocardial infarction) ICD Codes: I21.4 - Non-ST elevation (NSTEMI) myocardial infarction (5) S/P CABG (coronary artery bypass graft) Diagnosis: Secondary ICD Codes: Z95.1 - Presence of aortocoronary bypass graft (6) Chronic kidney disease Diagnosis: Principal ICD Codes: N18.9 - Chronic kidney disease, unspecified Procedures Urgent CABG x 4 08/30 FELDMAN to LAD - good SVG to OM2 - good SVG to Ramus - good SVG to D1 - good EVH - right and left legs Brief History 82 -year-old male patient of Dr. Talita Bonilla, Dr. Diez who presented to the emergency department August 28, secondary to chest pain and shortness of breath. He states that he has been having some symptoms off/on since June, however, seems to be worse after thanks when he and his both apparently had the flu. He had been complaining of some tightness in his chest, off and on, mainly when he is exerting himself. On the day of admission he was apparently out polishing the frey of his car and had a persistent dull steady pain that did not go away. He had recently been seen by Dr. Diez's office and had a stress test which he said was okay. His echocardiogram showed an ejection fraction of 56%, on July 02,mild mitral regurgitation, mild aortic insufficiency, mildly dilated left atrium. Upon arrival to the emergency room they did a complete work up which showed some elevated troponin' s of 0.86. His electrocardiogram showed normal sinus rhythm, had no acute ST changes. He underwent cardiac catheterization today by Dr. Noyola which showed a left main 10% stenosed, proximal left anterior descending 90, the distal left anterior descending at 70%, diagonal 10%. The circumflex 95%. The om 20%, the right coronary artery 40%. He also had some reinstent stenosis of 40% in the left anterior descending stents. Ruled in for NSTEMI PAST MEDICAL HISTORY: Coronary artery disease.( stent LAD in 2003) History of prostate cancer, CKD stabge 111 CBC/BMP: 09/03/17 0351 09/02/17 0520 Significant Findings Laboratory Tests Test 09/01/17 04:15 09/02/17 05:20 09/03/17 03:51 White Blood Count 16.2 TH/MM3 (4.0-11.0) Red Blood Count 2.63 MIL/MM3 (4.50-5.90) 2.83 MIL/MM3 (4.50-5.90) 3.00 MIL/MM3 (4.50-5.90) Hemoglobin 7.8 GM/DL (13.0-17.0) 8.6 GM/DL (13.0-17.0) 9.0 GM/DL (13.0-17.0) Hematocrit 23.5 % (39.0-51.0) 25.2 % (39.0-51.0) 26.6 % (39.0-51.0) Neutrophils (%) (Auto) 85.1 % (16.0-70.0) Lymphocytes (%) (Auto) 6.4 % (9.0-44.0) Monocytes (%) (Auto) 8.4 % (0.0-8.0) Neutrophils # (Auto) 13.8 TH/MM3 (1.8-7.7) Monocytes # (Auto) 1.4 TH/MM3 (0-0.9) Blood Urea Nitrogen 44 MG/DL (7-18) 44 MG/DL (7-18) Creatinine 2.17 MG/DL (0.60-1.30) 2.16 MG/DL (0.60-1.30) Random Glucose 135 MG/DL (74-106) Total Protein 5.5 GM/DL (6.4-8.2) 5.8 GM/DL (6.4-8.2) Calcium Level 7.2 MG/DL (8.5-10.1) 7.2 MG/DL (8.5-10.1) Estimat Glomerular Filtration Rate 29 ML/MIN (>89) 29 ML/MIN (>89) Protein Corrected Calcium 8.1 MG/DL (8.5-10.1) 7.9 MG/DL (8.5-10.1) Imaging Last Impressions Chest X-Ray 09/02/17 0600 Signed Impressions: Service Date/Time: Saturday, September 02, 2017 03:23 - CONCLUSION: 1. No pneumothorax following left chest tube removal. 2. Bibasilar atelectasis versus scarring. Brandyn Montes De Oca Jr., MD Lower Extremity Ultrasound 08/29/17 0000 Signed Impressions: Service Date/Time: August 15:38 - CONCLUSION: Patent superficial venous systems bilaterally with diameter measurements given above. Ziggy Barlow MD Carotid Artery Ultrasound 08/29/17 0000 Signed Impressions: Service Date/Time: August 16:02 - CONCLUSION: 1. Mild atherosclerotic plaquing at the right carotid bifurcation. There is some mild elevated velocity in the right internal carotid artery. However, no focal high-grade or significant stenosis is demonstrated. 2. The left carotid artery system is within normal limits. Michael Lopez MD Lung Scan-V Nuclear Medicine 08/28/17 0000 Signed Impressions: Service Date/Time: Monday, August 28, 2017 13:42 - CONCLUSION: Low probability of pulmonary embolism. Rodrigo Quevedo MD PE at Discharge GENERAL: SKIN: Warm and dry.prevena dressing to chest, incisions intact to right and left EVH sites HEAD: Normocephalic. EYES: No scleral icterus. No injection or drainage. NECK: Supple, trachea midline. No JVD or lymphadenopathy. CARDIOVASCULAR: Regular rate and rhythm without murmurs, gallops, or rubs. RESPIRATORY: Breath sounds equal bilaterally. No accessory muscle use. diminished in bases GASTROINTESTINAL: Abdomen soft, non-tender, nondistended. MUSCULOSKELETAL: No cyanosis, or edema. BACK: Nontender without obvious deformity. No CVA tenderness. Hospital Course 08/30 for surgery today 08/31/17 Doing well, no complaints 09/01/17 No complaints, progressing 09/02/17 No complaints, doing well 09/03/17 BB increased BP stable , on room air continue amiodarone for 2 weeks stable for discharge today Pt Condition on Discharge: Good Discharge Disposition: Disch w/ Home Health Serv Discharge Instructions DIET: Follow Instructions for: Heart Healthy Diet Activities you can perform: Shower Only-No Bath Activities to avoid: Strenuous Activity, Driving Additional Activity Instructio: no lifting > 8 lbs or gallon of milk Follow up Referrals: Cardiology - 4 Weeks with Brock Diez MD Cardiology with Brock Diez MD PCP Follow-up - 2 Weeks with Talita Bonilla MD PCP Follow-up with Talita Bonilla MD Surgical - 2 Weeks with Flor Botello New Orders: BASIC METABOLIC PROF - 2 Weeks CBC NO DIFF - 2 Weeks X-RAY CHEST PA & LAT - 2 Weeks New Medications: Amiodarone (Amiodarone) 200 Mg Tab 400 MG PO Q12HR for heart rhythm, #30 TAB 0 Refills 400mg bid x 3 days, then 200mg bid x 3 days , then 200mg daily until RX completed, no refill Docusate Sodium (Dok) 100 Mg Cap 100 MG PO BID for Constipation, #60 CAP 0 Refills Oxycodone HCl/Acetaminophen (Oxycodone-Acetaminophen 5-325) 5 Mg-325 Mg Tablet 1 TAB PO Q4H PRN for PAIN SCALE 1 TO 5, #40 TAB 0 Refills Continued Medications: Aspirin DR (Aspirin 81) 81 Mg Tabdr 81 MG PO DAILY, TAB 0 Refills Biotin (Biotin) 10 Mg Tab 10 MG PO DAILY for Nutritional Supplement, #1 BOTTLE 0 Refills Calcium Ascorbate (Calcium Ascorbate) 500 Mg Tab 500 MG PO for Calcium Supplement, TAB 0 Refills Cholecalciferol (Vitamin D3) 1,000 Unit Tab 1000 UNITS PO DAILY for Nutritional Supplement, #1 BOTTLE 0 Refills Ferrous Sulfate (Ferrous Sulfate) 325 Mg (65 Mg Iron) Tablet 325 MG PO DAILY for Nutritional Supplement, #30 TAB 0 Refills Finasteride (Finasteride) 5 Mg Tab 5 MG PO DAILY for Manage Prostate Problems, #30 TAB 0 Refills Do not crush. Folic Acid (Folic Acid) 0.8 Mg Tab 800 MCG PO DAILY for Nutritional Supplement, TAB 0 Refills Magnesium Gluconate (Magnesium Gluconate) 27 Mg (500 Mg) Tab 500 MG PO DAILY for Nutritional Supplement, TAB 0 Refills Metoprolol Tartrate (Metoprolol Tartrate) 25 Mg Tab 25 MG PO DAILY, #30 TAB 0 Refills Multiple Vitamins W/ Minerals (Ocuvite) 1 Tab 1 TAB PO DAILY for Nutritional Supplement, TAB 0 Refills Rosuvastatin (Rosuvastatin) 5 Mg Tab 5 MG PO DAILY for Cholesterol Management, #30 TAB 0 Refills Zinc Gluconate (Zinc Gluconate) 50 Mg Tab 50 MG PO DAILY, TAB Discontinued Medications: Losartan (Losartan) 25 Mg Tab 25 MG PO DAILY for Blood Pressure Management, #30 TAB 0 Refills Flor Botello Sep 03, 2017 13:51
--- NOTE | 2017-09-03 13:55 | PD.CARD.PN ---
Subjective Subjective Remarks Doing well Up to the chair and ambulating Chest tubes removed No events overnight Objective Medications Current Medications Medications (Trade) Dose Ordered Sig/Anabel Route Start Time Stop Time Status Last Admin (Narcan Inj) 0.4 mg UNSCH PRN IV PUSH 08/28/17 16:00 (Vitamin D3) 1,000 units DAILY PO 08/29/17 09:00 09/03/17 09:10 (Ferrous Sulfate) 325 mg DAILY PO 08/29/17 09:00 09/03/17 09:12 (Proscar) 5 mg DAILY PO 08/29/17 09:00 09/03/17 09:11 (Folate) 1 mg DAILY PO 08/29/17 09:00 09/03/17 09:12 (Cozaar) 25 mg DAILY PO 08/29/17 09:00 Future Hold 08/29/17 08:11 (Ocuvite) 1 tab DAILY PO 08/29/17 09:00 09/03/17 09:10 Patient Own Medication PT OWN MED: MAGNES... DAILY PO 08/29/17 09:00 Future Hold Patient Own Medication PT OWN MED: ZINC GLUCON... DAILY PO 08/29/17 09:00 Future Hold (Atropine Inj) 0.5 mg UNSCH PRN IV PUSH 08/29/17 11:15 (Lipitor) 80 mg DAILY PO 08/30/17 09:00 09/03/17 09:12 Papaverine HCl 60 mg/Nitroglycerin 100 mcg/Diltiazem HCl 100 mg/Sodium Chloride 100 ml @ 0 mls/hr [employer] IRRIGATION 08/29/17 14:30 09/05/17 14:29 08/30/17 09:30 Cefazolin Sodium 500 mg/Sodium Chloride 505 ml @ 0 mls/hr [employer] IRRIGATION 08/29/17 14:30 09/05/17 14:29 08/30/17 12:25 Cefazolin Sodium/ Dextrose 50 ml @ 150 mls/hr [employer] IV 08/29/17 14:30 09/05/17 14:29 (Hibiclens 4% Top Soln) 1 applic [employer] MAKER TOPICAL 08/29/17 14:30 09/05/17 14:29 (NS Flush) 2 ml BID IV FLUSH 08/30/17 21:00 09/03/17 09:10 (NS Flush) 2 ml UNSCH PRN IV FLUSH 08/30/17 12:30 Albumin Human 250 ml @ 250 mls/hr UNSCH PRN IV 08/30/17 12:30 (Aspirin Chew) 81 mg DAILY PO 08/31/17 09:00 09/03/17 09:12 (Protonix) 40 mg DAILY@06 PO 08/31/17 06:00 09/03/17 06:26 (Tylenol) 650 mg Q4H PRN PO 08/30/17 13:30 09/03/17 11:42 (Tylenol Supp) 650 mg Q4H PRN RECTAL 08/30/17 13:30 (Percocet 5-325 Mg) 1 tab Q3H PRN PO 08/30/17 13:30 09/02/17 06:03 (Zofran Inj) 4 mg Q6H PRN IV PUSH 08/30/17 12:30 08/30/17 23:00 (Apresoline Inj) 10 mg Q4H PRN IV PUSH 08/30/17 12:30 (Lopressor Inj) 2.5 mg Q1H PRN IV PUSH 08/30/17 12:30 Potassium Chloride 100 ml @ 50 mls/hr UNSCH PRN IV 08/30/17 12:30 Potassium Chloride 100 ml @ 50 mls/hr UNSCH PRN IV 08/30/17 12:30 Potassium Chloride 100 ml @ 50 mls/hr UNSCH PRN IV 08/30/17 12:30 (KCl) 20 meq UNSCH PRN PO 08/30/17 12:30 (KCl) 40 meq UNSCH PRN PO 08/30/17 12:30 Magnesium Sulfate 2 gm/Sodium Chloride 104 ml @ 100 mls/hr UNSCH PRN IV 08/30/17 12:30 Magnesium Sulfate 2 gm/Sodium Chloride 104 ml @ 50 mls/hr UNSCH PRN IV 08/30/17 12:30 (Calcium Chloride Inj) 0.5 gm UNSCH PRN IV PUSH 08/30/17 12:30 Insulin Human Regular 100 units/ Sodium Chloride 100 ml @ 3 mls/hr TITRATE PRN IV 08/30/17 12:30 (Sodium Bicarbonate 8.4% Inj) 50 meq UNSCH PRN IV PUSH 08/30/17 12:30 (Sodium Bicarbonate 8.4% Inj) 100 meq UNSCH PRN IV PUSH 08/30/17 12:30 (Duoneb Neb) 1 ampule Q2HR NEB PRN NEB 08/30/17 12:30 08/31/17 14:13 (Colace) 100 mg BID PO 08/31/17 21:00 09/02/17 09:42 (Theragran M Tab) 1 tab DAILY PO 08/31/17 09:00 09/03/17 09:11 (Milk Of Magnesia Liq) 30 ml DAILY PO 08/31/17 09:00 09/02/17 09:49 (Miralax) 17 gm DAILY PO 09/01/17 09:00 09/02/17 09:49 (Senokot) 8.6 mg HS PO 08/31/17 21:00 09/01/17 21:14 (Fleets Enema (Adult)) 118 ml UNSCH PRN RECTAL 08/31/17 08:15 (D50w (Vial) Inj) 50 ml UNSCH PRN IV PUSH 08/31/17 08:15 (Glucagon Inj) 1 mg UNSCH PRN OTHER 08/31/17 08:15 (Flomax) 0.4 mg DAILY PO 08/31/17 09:00 09/03/17 09:11 (Pill Splitter) 1 ea UNSCH PRN OTHER 08/31/17 08:30 (NovoLOG SUPPLEMENTAL SCALE) 1 ACHS SLIDING SCALE SQ 09/01/17 17:00 09/03/17 12:00 (Cordarone) 400 mg Q8HR PO 09/02/17 18:31 09/03/17 06:26 (Lopressor) 25 mg BID PO 09/03/17 09:00 09/03/17 09:13 Vital Signs / I&O Vital Signs Date Time Temp Pulse Resp B/P (MAP) Pulse Ox O2 Delivery O2 Flow Rate FiO2 09/03/17 13:00 78 09/03/17 12:28 77 09/03/17 11:45 97.5 76 19 115/66 (82) 99 09/03/17 11:25 94 Room Air 09/03/17 11:00 81 09/03/17 10:00 77 09/03/17 09:00 108 09/03/17 08:20 95 21 09/03/17 08:00 96 09/03/17 07:40 97.9 99 17 151/72 (98) 96 09/03/17 07:40 96 Room Air 09/03/17 07:00 72 09/03/17 06:00 79 09/03/17 05:00 93 09/03/17 04:00 87 09/03/17 03:00 97.9 83 16 159/74 (102) 95 09/03/17 03:00 72 09/03/17 03:00 95 Room Air 09/03/17 02:00 101 09/03/17 01:00 74 09/03/17 00:00 81 09/02/17 23:00 98.0 87 18 151/70 (97) 94 09/02/17 23:00 80 09/02/17 23:00 94 Room Air 09/02/17 22:00 78 09/02/17 21:00 84 09/02/17 21:00 98 21 09/02/17 20:00 98 09/02/17 19:00 94 Room Air 09/02/17 19:00 103 09/02/17 19:00 97.9 98 18 128/60 (82) 94 09/02/17 18:20 130 09/02/17 18:00 120 09/02/17 17:00 98 09/02/17 16:00 98 09/02/17 15:00 88 09/02/17 15:00 98.4 98 20 106/61 (76) 96 09/02/17 15:00 98 Room Air 09/02/17 14:00 98 I/O 09/02/17 09/02/17 09/02/17 09/03/17 09/03/17 09/03/17 07:00 15:00 23:00 07:00 15:00 23:00 Intake Total 480 ml 1422 ml 680 ml Output Total 400 ml 1540 ml Balance 80 ml 1422 ml -860 ml Intake Oral 480 ml 922 ml 580 ml IV Total 100 ml 100 ml Packed Cells 400 ml Output Urine Total 400 ml 1540 ml # Voids 5 6 # Bowel Movements 3 0 Physical Exam GENERAL: NAD, AAOx3 SKIN: Warm and dry. HEAD: Atraumatic. Normocephalic. EYES: Pupils equal and round. No scleral icterus. No injection or drainage. ENT: No nasal bleeding or discharge. Mucous membranes pink and moist. NECK: Trachea midline. No JVD. CARDIOVASCULAR: Regular rate and rhythm. RESPIRATORY: No accessory muscle use. Diminished breath sounds bilaterally GASTROINTESTINAL: Abdomen soft, non-tender, nondistended. Hepatic and splenic margins not palpable. MUSCULOSKELETAL: Extremities without clubbing, cyanosis, or edema. No obvious deformities. NEUROLOGICAL: No focal deficits Laboratory Laboratory Tests Test 09/03/17 03:51 White Blood Count 10.0 TH/MM3 Red Blood Count 3.00 MIL/MM3 Hemoglobin 9.0 GM/DL Hematocrit 26.6 % Mean Corpuscular Volume 88.7 FL Mean Corpuscular Hemoglobin 29.9 PG Mean Corpuscular Hemoglobin Concent 33.7 % Red Cell Distribution Width 14.0 % Platelet Count 190 TH/MM3 Mean Platelet Volume 9.0 FL Assessment and Plan Problem List: (1) Chronic kidney disease ICD Codes: N18.9 - Chronic kidney disease, unspecified (2) NSTEMI (non-ST elevated myocardial infarction) ICD Codes: I21.4 - Non-ST elevation (NSTEMI) myocardial infarction (3) Chest pain ICD Codes: R07.9 - Chest pain, unspecified Status: Acute (4) Coronary artery disease ICD Codes: I25.10 - Atherosclerotic heart disease of [place] coronary artery without angina pectoris (5) S/P CABG (coronary artery bypass graft) ICD Codes: Z95.1 - Presence of aortocoronary bypass graft Assessment and Plan 1) NSTEMI/MVCAD s/p CABGx4 POD #4 FELDMAN to LAD SVG to OM2 SVG to Ramus SVG to D1 2) Chest tubes out 3) s/p 1 unit PRBC 4) ASA/BB/Statin/Amiodarone/ARB 5) Plan discharge today, will follow up with Dr. Diez on discharge Problem Qualifiers (1) Chronic kidney disease: Qualified Codes: N18.3 - Chronic kidney disease, stage 3 (moderate) (2) Chest pain: Qualified Codes: R07.9 - Chest pain, unspecified Bird Noyola DO Sep 03, 2017 13:55
== END 2017-09-03 14:38 | disposition home health service (06) | DRG 234 ==
LOC: NEPE 10:27 → NEDA 15:20 → NEPFCDU 16:57 → OBSVTOIN 08-29 11:06 → HCIS 08-29 11:09 → HCVI 08-30 13:00 → HCPC 08-31 21:25
PROVIDERS: ADMIT Thoracic Surgery (Cardiothoracic Vascular Surgery); ATTEND Thoracic Surgery (Cardiothoracic Vascular Surgery)
PROC: 4A023N7 Measurement of Cardiac Sampling and Pressure, Left Heart, Percutaneous Approach (ICD-10-PCS; 2017-08-29)
PROC: B2111ZZ Fluoroscopy of Multiple Coronary Arteries using Low Osmolar Contrast (ICD-10-PCS; 2017-08-29)
PROC: 021209W Bypass Coronary Artery, Three Arteries from Aorta with Autologous Venous Tissue, Open Approach (ICD-10-PCS; 2017-08-30)
PROC: 06BQ4ZZ Excision of Left Saphenous Vein, Percutaneous Endoscopic Approach (ICD-10-PCS; 2017-08-30)
PROC: 5A1221Z Performance of Cardiac Output, Continuous (ICD-10-PCS; 2017-08-30)
PROC: 02100Z9 Bypass Coronary Artery, One Artery from Left Internal Mammary, Open Approach (ICD-10-PCS; principal; 2017-08-30 07:11)
PROC: 30233N1 Transfusion of Nonautologous Red Blood Cells into Peripheral Vein, Percutaneous Approach (ICD-10-PCS; 2017-09-01)
DX: I21.4 Non-ST elevation (NSTEMI) myocardial infarction (principal); N17.9 Acute kidney failure, unspecified; T82.858A Stenosis of other vascular prosthetic devices, implants and grafts, initial encounter; I25.119 Atherosclerotic heart disease of native coronary artery with unspecified angina pectoris; Z87.891 Personal history of nicotine dependence; Z95.5 Presence of coronary angioplasty implant and graft; R20.0 Anesthesia of skin; Z85.46 Personal history of malignant neoplasm of prostate; Z82.49 Family history of ischemic heart disease and other diseases of the circulatory system; N18.3 Chronic kidney disease, stage 3 (moderate); I12.9 Hypertensive chronic kidney disease with stage 1 through stage 4 chronic kidney disease, or unspecified chronic kidney disease; Y71.3 Surgical instruments, materials and cardiovascular devices (including sutures) associated with adverse incidents; I08.0 Rheumatic disorders of both mitral and aortic valves; N40.0 Benign prostatic hyperplasia without lower urinary tract symptoms
CPT/HCPCS: 36430; 71010; 71045; 76937; 78582; 80048; 80053; 81001; 82550; 82948; 83036; 83735; 83880; 84155; 84484; 85002; 85014; 85025; 85027; 85379; 85610; 85730; 86850; 86900; 86901; 86920; 87641; 93005; 93306; 93458; 93880; 93970; 93998; 94002; 94010; 94150; 94640; 94664; 94667; 94668; 99152; 99153; 99285; A9540; A9567; C1769; C1893; G0378; J0131; J0282; J0690; J1644; J1815; J1940; J2150; J2250; J2370; J2405; J2440; J2720; J2930; J3010; J3370; J3475; J3480; J7050; J7060; J7120; P9016; P9047; Q9967